=== PATIENT | male | born 1960 | race African-American/Black ===

== ENCOUNTER 2016-10-27 09:49 | Outpatient (CLI) | payer OTHER, MEDICARE | END 2016-10-27 09:50 | disposition home or self-care (01) | DX: M05.79 Rheumatoid arthritis with rheumatoid factor of multiple sites without organ or systems involvement (principal); Z51.81 Encounter for therapeutic drug level monitoring ==

== ENCOUNTER 2017-09-30 14:18 | Outpatient (CLI) | payer OTHER, MEDICARE | END 2017-09-30 14:19 | disposition critical access hospital (66) | LOC: EMS 14:18 | PROVIDERS: ATTEND Surgery | DX: R42 Dizziness and giddiness (principal); R09.89 Other specified symptoms and signs involving the circulatory and respiratory systems | CPT/HCPCS: A0425; A0429 ==

== ENCOUNTER 2017-09-30 14:51 | Emergency (ER) | payer OTHER, MEDICARE ==
[2017-09-30] MEDS ORDERED: diltiaZEM INJ 5 MG/ML VIAL IVP STA ×2 (15:08→16:31)
--- NOTE | 2017-09-30 15:12 | ED Physician Documentation ---
PD HPI CHEST PAIN - Stated complaint Stated Complaint: DIZZY LIGHTHEADED - Chief complaint Chief Complaint: Cardiac - History obtained from History obtained from: Patient - History of Present Illness Timing - onset: Other (57-year-old gentleman with history of rheumatoid arthritis on Humira for the last 2 weeks he has been feeling dizzy on and off with chest pressure and lightheadedness. He saw his doctor and reportedly had pancytopenia and was referred back to his field sales representative because it was felt it might be related to his Humira and he took his last dose a few days ago and is being switched to Orencia. Regardless today he had a worse episode of chest pressure and dizziness and shortness of breath. He has no history of heart issues or atrial fibrillation.) Review of Systems Ten Systems: 10 systems reviewed and negative Constitutional: reports: Fatigue. denies: Fever, Chills Cardiac: reports: Chest pain / pressure, Palpitations, Pedal edema (chronic bilat), Calf pain Respiratory: reports: Dyspnea. denies: Cough PD PAST MEDICAL HISTORY - Past Medical History Past Medical History: Yes Cardiovascular: Hypertension Respiratory: None Neuro: TIA Endocrine/Autoimmune: None GI: None : None HEENT: None Psych: None Musculoskeletal: Rheumatoid arthritis Derm: None - Past Surgical History Past Surgical History: Yes General: Hiatal hernia repair - Present Medications Home Medications: Ambulatory Orders Medication Instructions Recorded Confirmed Gabapentin 600 mg PO TID 03/27/14 03/27/14 Leflunomide [Arava] 20 mg PO DAILY 03/27/14 03/27/14 Adalimumab [Humira] 10 mg SQ 09/30/17 Diltiazem HCl [Cardizem] 120 mg PO BID #60 tablet 09/30/17 - Allergies Allergies/Adverse Reactions: Allergies Allergy/AdvReac Type Severity Reaction Status Date / Time lisinopril AdvReac Edema Verified 09/30/17 14:57 - Social History Does the pt smoke?: Yes Smoking Status: Current every day smoker Does the pt drink ETOH?: Yes Does the pt have substance abuse?: No - Immunizations Immunizations are current?: Yes PD ED PE NORMAL - Vitals Vital signs reviewed: Yes - General General: Alert and oriented X 3, No acute distress - HEENT HEENT: PERRL, EOMI - Neck Neck: Supple, no meningeal sign, No bony TTP - Cardiac Cardiac: Other (Rapid and irregular, no murmur) - Respiratory Respiratory: No respiratory distress, Clear bilaterally - Abdomen Abdomen: Soft, Non tender - Back Back: No CVA TTP, No spinal TTP - Derm Derm: Normal color, Warm and dry - Extremities Extremities: Other (Severe pes planus especially on the left, moderate pedal edema which she says is chronic but the left calf is tender.) - Neuro Neuro: Alert and oriented X 3, Normal speech - Psych Psych: Normal mood, Normal affect Results - Vitals Vitals: Vital Signs - 24 hr 09/30/17 09/30/17 09/30/17 14:52 15:19 15:25 Temperature 36.3 C L Heart Rate 130 H 163 H 142 H Respiratory 22 35 H 22 Rate Blood Pressure 120/100 H 139/112 H O2 Saturation 99 98 96 09/30/17 09/30/17 09/30/17 15:48 15:56 16:02 Temperature Heart Rate 125 H 124 H 134 H Respiratory 27 H 20 22 Rate Blood Pressure 135/101 H 129/104 H 122/98 H O2 Saturation 98 97 97 09/30/17 09/30/17 09/30/17 16:24 16:32 16:42 Temperature 37 C Heart Rate 137 H 109 H 87 Respiratory 17 22 18 Rate Blood Pressure 116/90 H 124/84 H 101/71 O2 Saturation 98 98 97 09/30/17 16:47 Temperature Heart Rate 83 Respiratory 22 Rate Blood Pressure 110/73 O2 Saturation 98 Oxygen O2 Source Room air - EKG (time done) 1455 Rate: Rate (enter#) (152) Rhythm: Atrial fibrillation [place]: Normal Ischemia: Normal ST segments Computer interpretation: Agree with computer - Labs Labs: Laboratory Tests 09/30/17 09/30/17 09/30/17 15:17 15:17 15:17 WBC 4.2 L RBC 5.22 Hgb 12.9 L Hct 41.0 L MCV 78.5 L MCH 24.6 L MCHC 31.3 L RDW 17.2 H Plt Count 208 MPV 8.9 Neut # 2.6 Lymph # 0.9 L [place]ett # 0.6 Eos # 0.0 Baso # 0.1 Absolute Nucleated RBC 0.01 Nucleated RBC % 0.3 D-Dimer Sodium 139 Potassium 3.8 Chloride 107 Carbon Dioxide 22 Anion Gap 10.0 BUN 8 Creatinine 0.9 Estimated GFR (MDRD) 105 Glucose 101 H Calcium 8.4 L Total Bilirubin 0.6 AST 123 H ALT 83 H Alkaline Phosphatase 80 Troponin I < 0.04 B-Natriuretic Peptide Total Protein 6.3 L Albumin 3.1 L Globulin 3.2 Albumin/Globulin Ratio 1.0 Lipase 16 L TSH 09/30/17 09/30/17 09/30/17 15:17 15:17 15:17 WBC RBC Hgb Hct MCV MCH MCHC RDW Plt Count MPV Neut # Lymph # [place]ett # Eos # Baso # Absolute Nucleated RBC Nucleated RBC % D-Dimer 273.5 H Sodium Potassium Chloride Carbon Dioxide Anion Gap BUN Creatinine Estimated GFR (MDRD) Glucose Calcium Total Bilirubin AST ALT Alkaline Phosphatase Troponin I B-Natriuretic Peptide 220 H Total Protein Albumin Globulin Albumin/Globulin Ratio Lipase TSH 0.61 - Rads (name of study) 1v chest Radiology: EMP read contemporaneously (NAD) PD MEDICAL DECISION MAKING - ED course ED course: 57-year-old gentleman with rheumatoid arthritis and history of stroke presents with new onset atrial fibrillation, potentially of a couple weeks duration so he is not a good candidate for ED cardioversion without echo. He did improve and was rate controlled here after a few doses of meds. Called Ross Garvin, position description manager for his PCP, they will see him tomorrow to discuss anticoagulation. Departure - Departure Disposition: 01 Home, Self Care Clinical Impression: Atrial fibrillation Qualifiers: Atrial fibrillation type: paroxysmal Qualified Code(s): I48.0 - Paroxysmal atrial fibrillation Condition: Good Record reviewed to determine appropriate education?: Yes Instructions: Atrial Fibrillation Dc Prescriptions: Diltiazem HCl [Cardizem] 120 mg PO BID #60 tablet Comments: We found you to have atrial fibrillation today, initially rate was fast but we were able to control that with medications. You are still in the atrial fibrillation, you are to go to your usual clinic tomorrow, [facility] has an opening at 9:30. They will discuss with you further workup that is needing, for example an echocardiogram and also will have the discussion with you regarding anticoagulation to prevent stroke. 9:30 AM tomorrow with Evelyne Bronson Forms: Activity restrictions
[2017-09-30 15:26] LABS: BASOPHILS # (AUTO) 0.1 10^3/uL (0.0-0.1); BASOPHILS % (AUTO) 1.4 %; EOSINOPHILS % (AUTO) 0.7 %; HGB - HEMOGLOBIN 12.9 g/dL (14.0-18.0); LYMPHOCYTES # (AUTO) 0.9 10^3/uL (1.5-3.5); LYMPHOCYTES % (AUTO) 21.8 %; MEAN CORPUSCULAR HEMOGLOBIN 24.6 pg (27.0-31.0); MEAN CORPUSCULAR HGB CONC 31.3 g/dL (32.0-36.0); MEAN CORPUSCULAR VOLUME 78.5 fL (80.0-94.0); MEAN PLATELET VOLUME 8.9 fL (7.4-11.4); MONOCYTES # (AUTO) 0.6 10^3/uL (0.0-1.0); MONOCYTES % (AUTO) 13.6 %; NEUTROPHILS # (AUTO) 2.6 10^3/uL (1.5-6.6); NEUTROPHILS % (AUTO) 62.5 %; PLT - PLATELET COUNT 208 10^3/uL (130-450); RED BLOOD COUNT 5.22 10^6/uL (4.70-6.10); RED CELL DISTRIBUTION WIDTH 17.2 % (12.0-15.0); WHITE BLOOD COUNT 4.2 x10^3/uL (4.8-10.8)
--- NOTE | 2017-09-30 15:36 | XRAY Report ---
EXAM: CHEST RADIOGRAPHY EXAM DATE: 09/30/2017 03:25 PM. CLINICAL HISTORY: Dyspnea. COMPARISON: 08/01/2013. TECHNIQUE: 1 view. FINDINGS: Lungs/Pleura: No localized infiltrate, consolidation, effusion, or pneumothorax. Mediastinum: Within exam limitations, the cardiomediastinal contour is normal. Upper lobe vessels not distended. Other: Degenerative changes. IMPRESSION: No acute disease. [facility] Referring Provider Line: [phone] SITE ID: [id number]
[2017-09-30] MEDS ORDERED: METOPROLOL 5 MG/5 ML VIAL IVP STA ×2 (15:38→16:08)
[2017-09-30 15:41] LABS: ALBUMIN 3.1 g/dL (3.2-5.5); BILIRUBIN,TOTAL 0.6 mg/dL (0.2-1.0); CALCIUM 8.4 mg/dL (8.5-10.3); CREATININE 0.9 mg/dL (0.6-1.2); TOTAL PROTEIN 6.3 g/dL (6.7-8.2)
[2017-09-30] MEDS ORDERED: diltiaZEM 30 MG TABLET PO STA (16:55)
[2017-09-30 17:46] VITALS: BP 127/90
== END 2017-09-30 17:47 | disposition home or self-care (01) ==
LOC: EDUNIT# → ED 14:51
DX: I48.0 Paroxysmal atrial fibrillation (principal); M06.9 Rheumatoid arthritis, unspecified; I10 Essential (primary) hypertension; Z86.73 Personal history of transient ischemic attack (TIA), and cerebral infarction without residual deficits; F17.200 Nicotine dependence, unspecified, uncomplicated
CPT/HCPCS: 36415; 71045; 80053; 83690; 83880; 84443; 84484; 85025; 85379; 93005; 96374; 96376; 99284; A9270

== ENCOUNTER 2017-10-16 16:00 | Outpatient (CLI) | payer OTHER, MEDICARE | END 2017-10-16 16:01 | disposition EMS.NT | LOC: EMS 16:00 | PROVIDERS: ATTEND Surgery | DX: R00.0 Tachycardia, unspecified (principal); R06.02 Shortness of breath ==

== ENCOUNTER 2017-10-16 17:24 | Emergency (ER) | payer OTHER, MEDICARE ==
[2017-10-16 18:09] LABS: BASOPHILS # (AUTO) 0.1 10^3/uL (0.0-0.1); BASOPHILS % (AUTO) 1.9 %; EOSINOPHILS % (AUTO) 0.6 %; HGB - HEMOGLOBIN 13.3 g/dL (14.0-18.0); LYMPHOCYTES # (AUTO) 2.2 10^3/uL (1.5-3.5); LYMPHOCYTES % (AUTO) 27.5 %; MEAN CORPUSCULAR HEMOGLOBIN 24.4 pg (27.0-31.0); MEAN CORPUSCULAR HGB CONC 31.5 g/dL (32.0-36.0); MEAN CORPUSCULAR VOLUME 77.5 fL (80.0-94.0); MEAN PLATELET VOLUME 9.2 fL (7.4-11.4); MONOCYTES # (AUTO) 0.7 10^3/uL (0.0-1.0); MONOCYTES % (AUTO) 9.2 %; NEUTROPHILS # (AUTO) 4.8 10^3/uL (1.5-6.6); NEUTROPHILS % (AUTO) 60.8 %; PLT - PLATELET COUNT 268 10^3/uL (130-450); RED BLOOD COUNT 5.47 10^6/uL (4.70-6.10); RED CELL DISTRIBUTION WIDTH 17.2 % (12.0-15.0); WHITE BLOOD COUNT 7.9 x10^3/uL (4.8-10.8)
[2017-10-16 18:38] LABS: ALBUMIN 3.4 g/dL (3.2-5.5); BILIRUBIN,TOTAL 0.4 mg/dL (0.2-1.0); TOTAL PROTEIN 6.9 g/dL (6.7-8.2)
[2017-10-16 18:39] LABS: CREATININE 0.7 mg/dL (0.6-1.2)
--- NOTE | 2017-10-16 18:50 | ED Physician Documentation ---
History of Present Illness - Stated complaint Stated Complaint: AFIB - Chief complaint Chief Complaint: Cardiac - History obtained from History obtained from: Patient - History of Present Illness Pain level max: 0 Pain level now: 0 Improved by: nothing Worsened by: nothing - Additonal information Additional information: States dx with afib 2 weeks ago, started on cardizem 120mg BID. At 230pm today, felt chest fluttering. No chest pain. Mild shortness of breath. States was in NSR before leaving the ED last week. Was in NSR when he followed up with PCP as well. Review of Systems Ten Systems: 10 systems reviewed and negative Constitutional: denies: Fever, Chills Ears: denies: Ear pain Nose: denies: Rhinorrhea / runny nose, Congestion Throat: denies: Sore throat Respiratory: denies: Cough, Wheezing GI: denies: Vomiting, Diarrhea Skin: denies: Rash Musculoskeletal: denies: Neck pain, Back pain Neurologic: denies: Headache PD PAST MEDICAL HISTORY - Past Medical History Cardiovascular: Hypertension, Atrial fibrillation Respiratory: None Neuro: TIA Endocrine/Autoimmune: None GI: None : None HEENT: None Psych: None Musculoskeletal: Rheumatoid arthritis Derm: None - Past Surgical History Past Surgical History: Yes General: Hiatal hernia repair - Present Medications Home Medications: Ambulatory Orders Medication Instructions Recorded Confirmed Leflunomide [Arava] 20 mg PO DAILY 03/27/14 10/16/17 Diltiazem HCl [Cardizem] 120 mg PO BID #60 tablet 09/30/17 10/16/17 - Allergies Allergies/Adverse Reactions: Allergies Allergy/AdvReac Type Severity Reaction Status Date / Time lisinopril AdvReac Edema Verified 10/16/17 17:38 - Social History Does the pt smoke?: Yes Smoking Status: Current every day smoker Does the pt drink ETOH?: Yes Does the pt have substance abuse?: No - Immunizations Immunizations are current?: Yes PD ED PE NORMAL - Vitals Vital signs reviewed: Yes - General General: Alert and oriented X 3, No acute distress, Well developed/nourished - HEENT HEENT: PERRL, Moist mucous membranes - Neck Neck: Supple, no meningeal sign - Cardiac Cardiac: Strong equal pulses, Other (irregular) - Respiratory Respiratory: No respiratory distress, Clear bilaterally - Abdomen Abdomen: Soft, Non tender, Non distended - Derm Derm: Warm and dry, No rash - Extremities Extremities: No edema, No calf tenderness / cord - Neuro Neuro: Alert and oriented X 3 - Psych Psych: Normal mood, Normal affect Results - Vitals Vitals: Vital Signs - 24 hr 10/16/17 10/16/17 10/16/17 17:35 18:30 19:33 Temperature 36.1 C L Heart Rate 109 H 120 H 120 H Respiratory 18 16 15 Rate Blood Pressure 129/87 H 150/100 H 146/101 H O2 Saturation 100 100 100 10/16/17 10/16/17 19:46 19:55 Temperature Heart Rate 122 H 73 Respiratory 13 13 Rate Blood Pressure 122/96 H 122/96 H O2 Saturation 100 99 Oxygen O2 Source Room air - EKG (time done) 1743 Rate: Rate (enter#) (140) Rhythm: Atrial fibrillation (RVR) [place]: Normal QRS: Normal Ischemia: Normal ST segments 1952 Rate: Rate (enter#) (70) Rhythm: NSR [place]: Normal Intervals: Normal SD QRS: Normal Ischemia: Normal ST segments - Labs Labs: Laboratory Tests 10/16/17 10/16/17 10/16/17 17:59 17:59 17:59 WBC 7.9 RBC 5.47 Hgb 13.3 L Hct 42.4 MCV 77.5 L MCH 24.4 L MCHC 31.5 L RDW 17.2 H Plt Count 268 MPV 9.2 Neut # 4.8 Lymph # 2.2 [place] # 0.7 Eos # 0.0 Baso # 0.1 Absolute Nucleated RBC 0.01 Nucleated RBC % 0.1 Sodium 137 Potassium 3.8 Chloride 101 Carbon Dioxide 23 Anion Gap 13.0 BUN 9 Creatinine 0.7 Estimated GFR (MDRD) 141 Glucose 90 Calcium 9.0 Total Bilirubin 0.4 AST 25 ALT 18 Alkaline Phosphatase 75 Troponin I < 0.04 Total Protein 6.9 Albumin 3.4 Globulin 3.5 Albumin/Globulin Ratio 1.0 Lipase 23 PD MEDICAL DECISION MAKING - ED course Complexity details: reviewed old records, reviewed results, re-evaluated patient , considered differential, d/w patient, d/w family ED course: Patient is a 57-year-old male who presents to the emergency department with atrial fibrillation with rapid ventricular response. This is paroxysmal in nature. As he is only been in the atrial fibrillation for a few hours, it was decided to perform chemical cardioversion with procainamide. He converted to normal sinus rhythm and will have him follow-up with his doctor. Patient counseled regarding signs and symptoms for which I believe and urgent re- evaluation would be necessary. Patient with good understanding of and agreement to plan and is comfortable going home at this time This document was made in part using voice recognition software. While efforts are made to proofread this document, sound alike and grammatical errors may occur. Departure - Departure Disposition: 01 Home, Self Care Clinical Impression: Atrial fibrillation Qualifiers: Atrial fibrillation type: paroxysmal Qualified Code(s): I48.0 - Paroxysmal atrial fibrillation Condition: Good Instructions: ED Afib Follow-Up: [facility] Bronson ARNP [Primary Care Provider] - Within 1 week Comments: Continue your medications at home. Return if you worsen. Discharge Date/Time: 10/16/17 20:00
[2017-10-16] MEDS ORDERED: diltiaZEM INJ 5 MG/ML VIAL IVP STA (18:55)
--- NOTE | 2017-10-16 19:02 | XRAY Report ---
EXAM: CHEST RADIOGRAPHY EXAM DATE: 10/16/2017 06:33 PM. CLINICAL HISTORY: Shortness of air COMPARISON: 09/30/2017. TECHNIQUE: 2 views. FINDINGS: Lungs/Pleura: No focal opacities evident. No pleural effusion. No pneumothorax. Normal volumes. Mediastinum: Heart and mediastinal contours are unremarkable. Other: None. IMPRESSION: Negative chest. [facility] Referring Provider Line: [phone] SITE ID: [id number]
--- NOTE | 2017-10-16 19:02 | XRAY Preliminary Report ---
Exam: XR CHEST 2 VIEW X-RAY IMPRESSION: Negative chest. [facility] SITE ID: [id number]
[2017-10-16] MEDS ORDERED: PROCAINAMIDE 1,000 MG in SODIUM CHLORIDE 0.9% 240 ML IV SCH ×2 (19:14→20:00)
[2017-10-16] MEDS ORDERED: PROCAINAMIDE 1,000 MG/10 ML SYRINGE ONE (19:31)
[2017-10-16 19:47] VITALS: BP 122/96
== END 2017-10-16 20:00 | disposition home or self-care (01) ==
LOC: ED 17:24
DX: I48.0 Paroxysmal atrial fibrillation (principal); I10 Essential (primary) hypertension; Z86.73 Personal history of transient ischemic attack (TIA), and cerebral infarction without residual deficits; M06.9 Rheumatoid arthritis, unspecified; F17.200 Nicotine dependence, unspecified, uncomplicated
CPT/HCPCS: 36415; 71046; 80053; 83690; 84484; 85025; 93005; 96365; 99283; 99285; J2690

== ENCOUNTER 2017-10-18 08:30 | Outpatient (CLI) | payer OTHER, MEDICARE | END 2017-10-18 08:31 | disposition home or self-care (01) | LOC: DI 08:30 | PROVIDERS: ATTEND Registered Nurse | DX: I48.0 Paroxysmal atrial fibrillation (principal); I51.7 Cardiomegaly; I77.810 Thoracic aortic ectasia | CPT/HCPCS: 93306 ==

== ENCOUNTER 2018-05-29 19:39 | Inpatient (IN) | payer OTHER, MEDICARE ==
[2018-05-29 20:17] LABS: BASOPHILS % (AUTO) 0.2 %; EOSINOPHILS % (AUTO) 0.3 %; HGB - HEMOGLOBIN 10.9 g/dL (14.0-18.0); LYMPHOCYTES # (AUTO) 1.4 10^3/uL (1.5-3.5); LYMPHOCYTES % (AUTO) 15.8 %; MEAN CORPUSCULAR HEMOGLOBIN 25.4 pg (27.0-31.0); MEAN CORPUSCULAR HGB CONC 32.9 g/dL (32.0-36.0); MEAN CORPUSCULAR VOLUME 77.3 fL (80.0-94.0); MEAN PLATELET VOLUME 8.4 fL (7.4-11.4); MONOCYTES # (AUTO) 0.6 10^3/uL (0.0-1.0); MONOCYTES % (AUTO) 6.5 %; NEUTROPHILS # (AUTO) 6.8 10^3/uL (1.5-6.6); NEUTROPHILS % (AUTO) 77.2 %; PLT - PLATELET COUNT 249 10^3/uL (130-450); RED BLOOD COUNT 4.28 10^6/uL (4.70-6.10); RED CELL DISTRIBUTION WIDTH 15.8 % (12.0-15.0); WHITE BLOOD COUNT 8.8 x10^3/uL (4.8-10.8)
[2018-05-29 20:42] LABS: BILIRUBIN,TOTAL 1.4 mg/dL (0.2-1.0); CALCIUM 8.1 mg/dL (8.5-10.3); CREATININE 1.5 mg/dL (0.6-1.2)
--- NOTE | 2018-05-29 20:58 | ED Physician Documentation ---
PD HPI ABD PAIN - Stated complaint Stated Complaint: ABD PX/VOMIT - Chief complaint Chief Complaint: Abd Pain - History obtained from History obtained from: Patient - History of Present Illness Timing - onset: Enter time (12:30), Today Timing - duration: Hours Timing - details: Abrupt onset, Waxing and waning Pain level max: 10 Pain level now: 10 Quality: Pain Location: Epigastric Radiation: Other (does not radiate) Improved by: Laying still Worsened by: Moving, Palpation Associated symptoms: Nausea. No: Fever, Vomiting, Diarrhea, Constipation Similar symptoms before: Has not had sx before Recently seen: Clinic (evaluated few weeks ago for N/V/D by PMD; patient says he was diagnosed with "intenstinal infection", and was told to stop ibuprofen and levflunomide. He was also to have US (scheduled for tomorrow) and GI consult (in [place]). Patient says the pain he has tonight is not something he has experienced before. He says he did not drink any alcohol today, but has been drinking daily) Review of Systems Constitutional: reports: Reviewed and negative Eyes: reports: Reviewed and negative Ears: reports: Reviewed and negative Nose: reports: Reviewed and negative Throat: reports: Reviewed and negative Cardiac: reports: Reviewed and negative Respiratory: reports: Reviewed and negative GI: reports: Abdominal Pain, Nausea. denies: Abdominal Swelling, Vomiting, Constipation, Diarrhea : denies: Dysuria, Hesitancy Skin: reports: Reviewed and negative Musculoskeletal: reports: Reviewed and negative Neurologic: reports: Reviewed and negative PD PAST MEDICAL HISTORY - Past Medical History Cardiovascular: Hypertension, Atrial fibrillation Respiratory: None Endocrine/Autoimmune: None GI: None : None HEENT: None Psych: None Musculoskeletal: Rheumatoid arthritis Derm: None - Past Surgical History Past Surgical History: Yes General: Hiatal hernia repair - Present Medications Home Medications: Ambulatory Orders Medication Instructions Recorded Confirmed Leflunomide [Arava] 20 mg PO DAILY 03/27/14 10/16/17 Diltiazem HCl [Cardizem] 120 mg PO BID #60 tablet 09/30/17 10/16/17 - Allergies Allergies/Adverse Reactions: Allergies Allergy/AdvReac Type Severity Reaction Status Date / Time amoxicillin Allergy Respiratory Verified 05/29/18 19:52 - Social History Does the pt smoke?: Yes Smoking Status: Current every day smoker Does the pt drink ETOH?: Yes Does the pt have substance abuse?: No - Immunizations Immunizations are current?: Yes PD ED PE NORMAL - Vitals Vital signs reviewed: Yes - General General: Alert and oriented X 3, Well developed/nourished, Other (obvious painful distress) - HEENT HEENT: Moist mucous membranes - Neck Neck: Supple, no meningeal sign - Cardiac Cardiac: RRR, No murmur - Respiratory Respiratory: No respiratory distress, Clear bilaterally - Abdomen Abdomen: Soft, Non distended, Other (tenderness across upper abdomen, most p ronounced in epigastrium) - Back Back: No CVA TTP - Derm Derm: Normal color, Warm and dry - Extremities Extremities: No edema Results - Vitals Vitals: Vital Signs - 24 hr 05/29/18 05/29/18 05/29/18 19:46 21:15 21:43 Temperature 36.6 C Heart Rate 59 L 70 71 Respiratory 21 18 15 Rate Blood Pressure 148/85 H 175/88 H 184/90 H O2 Saturation 100 100 100 05/29/18 23:03 Temperature Heart Rate 78 Respiratory 20 Rate Blood Pressure 170/89 H O2 Saturation 97 Oxygen O2 Source Room air - Labs Labs: Laboratory Tests 05/29/18 05/29/18 05/29/18 20:05 20:05 20:05 WBC 8.8 RBC 4.28 L Hgb 10.9 L Hct 33.1 L MCV 77.3 L MCH 25.4 L MCHC 32.9 RDW 15.8 H Plt Count 249 MPV 8.4 Neut # (Auto) 6.8 H Lymph # (Auto) 1.4 L [place] # (Auto) 0.6 Eos # (Auto) 0.0 Baso # (Auto) 0.0 Absolute Nucleated RBC 0.01 Nucleated RBC % 0.1 Sodium 138 Potassium 2.9 L Chloride 104 Carbon Dioxide 23 Anion Gap 11.0 BUN 16 Creatinine 1.5 H Estimated GFR (MDRD) 58 L Glucose 119 H Calcium 8.1 L Total Bilirubin 1.4 H AST 52 H ALT 40 Alkaline Phosphatase 106 Total Protein 6.0 L Albumin 3.0 L Globulin 3.0 Albumin/Globulin Ratio 1.0 Amylase 651 H* Lipase 1092 H - Rads (name of study) CT A/P Radiology: Prelim report reviewed, See rad report PD MEDICAL DECISION MAKING - ED course Complexity details: reviewed results, re-evaluated patient, considered differential, d/w patient Departure - Departure Disposition: 66 [facility] DC/Xfer Clinical Impression: Pancreatitis Condition: Stable
[2018-05-29] MEDS ORDERED: HYDROmorphone 1 MG/ML CARPUJECT IVP STA (21:23)
[2018-05-29] MEDS ORDERED: SODIUM CHLORIDE 0.9% 1,000 ML IV STA (21:23)
[2018-05-29] MEDS ORDERED: IOPAMIDOL-300 100 ML VIAL ONE (21:40)
[2018-05-29] MEDS ORDERED: IOPAMIDOL-300 100 ML VIAL IVP ONE (21:56)
--- NOTE | 2018-05-29 22:27 | CT Report ---
Reason: pancreatitis Procedure Date: 05/29/2018 Accession Number: [id number] / [id number] Procedure: CT - Abdomen/Pelvis W/ CPT Code: FULL RESULT: EXAM: CT ABDOMEN AND PELVIS EXAM DATE: 05/29/2018 10:04 PM. CLINICAL HISTORY: Pancreatitis. COMPARISONS: None. TECHNIQUE: Routine helical CT imaging was performed through the abdomen and pelvis. IV contrast: ISOVUE 300 100mL. Enteric contrast: No. Reconstructions: Coronal and sagittal. In accordance with CT protocol optimization, one or more of the following dose reduction techniques were utilized for this exam: automated exposure control, adjustment of mA and/or KV based on patient size, or use of iterative reconstructive technique. FINDINGS: Lung Bases: Unremarkable. Liver: Small hypodensity in the right lobe, likely representing a cyst. No intrahepatic biliary dilatation. Gallbladder/Bile Ducts: Unremarkable. Spleen: Normal. Pancreas: Inflammation around the body and tail of the pancreas, with inflammation and free fluid extending into the left paracolic gutter. No evidence of pancreatic necrosis or organized pseudocyst formation. Adrenal Glands: Normal. Kidneys: Normal. No masses or hydronephrosis. Peritoneal Cavity/Bowel: Fluid and inflammation in the left paracolic gutter. No bowel dilatation or free gas. The appendix is well visualized and normal. Pelvic Organs: Moderate amount of free fluid in the pelvis. No adenopathy. Vasculature: No aneurysms or other significant abnormality. Bones: Degenerative changes. Other: None. IMPRESSION: Peripancreatic inflammation, compatible with pancreatitis, without evidence of pancreatic necrosis or pseudocyst formation. [facility]
[2018-05-30] MEDS ORDERED: ONDANSETRON 4 MG/2 ML VIAL IVP PRN (00:23)
[2018-05-30] MEDS ORDERED: HYDROmorphone 0.5 MG/0.5 ML SYRINGE IVP PRN (00:23)
[2018-05-30] MEDS ORDERED: TEMAZEPAM 15 MG CAPSULE PO PRN (00:23)
[2018-05-30] MEDS ORDERED: LORazepam 2 MG/ML VIAL IVP PRN ×2 (00:29→20:35)
[2018-05-30] MEDS ORDERED: HYDROmorphone 1 MG/ML CARPUJECT IVP STA (00:53)
[2018-05-30] MEDS: D5NS W/20 MEQ KCL 1,000 ML IV SCH ×3 (02:01→16:18)
[2018-05-30] MEDS: POTASSIUM CHLOR 10 MEQ/100 ML 10 MEQ/100 ML BAG IV SCH ×2 (02:01→02:54)
[2018-05-30] MEDS: SODIUM CHLORIDE FLUSH 0.9% 10 ML SYRINGE IVP SCH ×3 (02:02→16:19)
[2018-05-30 02:45] LABS: BILIRUBIN,URINE NEGATIVE (NEGATIVE); GLUCOSE, URINE (UA) NEGATIVE (NEGATIVE); KETONES,URINE (UA) 15 mg/dL (NEGATIVE); LEUKOCYTE ESTERASE, URINE NEGATIVE (NEGATIVE); NITRITE,URINE NEGATIVE (NEGATIVE); OCCULT BLOOD,URINE TRACE-LYSE (NEGATIVE); PROTEIN,URINE 30 mg/dL (NEGATIVE); UROBILINOGEN,URINE 0.2 (NORMAL) E.U./dL (NORMAL)
[2018-05-30] MEDS: HYDROmorphone 2 MG/ML VIAL IVP PRN ×4 (02:45→18:32)
[2018-05-30 02:46] LABS: CLARITY,URINE CLEAR (CLEAR)
[2018-05-30 02:49] LABS: BACTERIA,URINE None Seen /HPF (None Seen); CASTS, URINE 3-5 Hyaline Casts /LPF; SQUAMOUS EPITHELIAL CELL,UR NONE SEEN (<= Few)
--- NOTE | 2018-05-30 03:22 | HISTORY & PHYSICAL EXAMINATION ---
DATE OF SERVICE: 05/30/2018 Physician: Jovanna Apodaca MD HISTORY OF PRESENT ILLNESS: This is a 58-year-old, black male with a history of rheumatoid arthritis on an immunomodulating agent, and history of paroxysmal atrial fibrillation and hypertension on Cardizem. He went to his doctor approximately a week ago because of 1 week of diarrhea and was told he had "an intestinal infection," was told to stop using p.r.n. ibuprofen and his rheumatoid arthritis agent leflunomide. He was to have a GI consultation and an ultrasound of his abdomen, which was scheduled for later this week. Patient awoke this morning with discomfort in the epigastric area and nausea, but no vomiting. He stated that several days previously, he went out for an event and had more alcohol than he usually has. He does drink daily, however. He presented to the emergency room because of severe abdominal pain, and underwent imaging and labs, and was found to have acute pancreatitis, and is being admitted for this. PAST MEDICAL HISTORY: Rheumatoid arthritis on leflunomide, hypertension and paroxysmal atrial fibrillation on Cardizem. REVIEW OF SYSTEMS: A comprehensive review of systems was performed and the pertinent positives are in the HPI, the rest are negative. FAMILY HISTORY: No inherited diseases. SOCIAL HISTORY: He drinks alcohol daily, he is a smoker of cigarettes and uses no illicit drugs. ALLERGIES: AMOXICILLIN. MEDICATIONS 1. Leflunomide. 2. Cardizem 120 mg b.i.d. PHYSICAL EXAMINATION GENERAL: He appears to be in mild to moderate distress, but he was given Dilaudid in the emergency room when the pain was worse previously. VITAL SIGNS: Blood pressure 174/102, heart rate 64, afebrile, room air saturation 100%. HEENT: Reveals piercing. Oral mucosa is moist. NECK: Without JVD or carotid bruits. CHEST: Clear. HEART: Sounds normal. ABDOMEN: Soft, hyperactive, tender to light touch in the epigastrium. No guarding or rebound. No organomegaly. EXTREMITIES: No edema. NEUROLOGIC: Grossly intact. LABORATORIES: Normal electrolytes except potassium 2.9, BUN is 16, creatinine 1.5, bilirubin 1.4, AST 52, ALT 40, alkaline phosphatase normal. Lipase 1092, amylase 651. White blood count 8.8, hemoglobin 10.9 with a low MCV of 77, platelet count 249. No INR was done. IMAGING: Abdomen and pelvis CT shows inflammation around the body and tail of the pancreas and free fluid extending into the left pericolic gutter, but no evidence of pancreatic necrosis or pseudocyst. No EKG was done. IMPRESSION/DIAGNOSES 1. Acute pancreatitis. 2. Alcohol use, which may be the precipitating factor of the pancreatitis. 3. Diarrhea, which preceded the pancreatitis. 4. Microcytic anemia. 5. Hypokalemia. 6. Hypertension. PLAN: Admit to inpatient status. Start IV fluids, D5 normal saline will be used and potassium supplement. Begin bowel rest, n.p.o. status except ice chips. Evaluate his diarrhea if it occurs with cultures for bacteria, as well as C. difficile evaluation. Check an iron panel and guaiac stool because of the low MCV, anemia. Replace the potassium. Continue his medications for blood pressure. CODE STATUS: FULL CODE. DEEP VENOUS THROMBOSIS PROPHYLAXIS: SCDs. ATTESTATION: The patient is expected to be discharged or transferred to another facility within 96 hours: Yes. TD: 05/30/2018 02:44 TRUMAN
[2018-05-30] MEDS: FAMOTIDINE 20 MG/50 ML 50 ML IV SCH ×3 (04:17→21:15)
[2018-05-30 05:45] LABS: ALBUMIN 2.7 g/dL (3.2-5.5); CALCIUM 7.6 mg/dL (8.5-10.3); CREATININE 1.4 mg/dL (0.6-1.2); TOTAL PROTEIN 5.5 g/dL (6.7-8.2)
[2018-05-30 06:02] LABS: % IRON SATURATION 60 % (20-50); IRON 116 ug/dL (45-182); TOTAL IRON BINDING CAPACITY 193 ug/dL (250-450); TRANSFERRIN 138 mg/dL (180-329)
[2018-05-30 06:03] LABS: AMYLASE 878 U/L (28-100)
[2018-05-30 06:10] LABS: LIPASE 1250 U/L (22-51)
[2018-05-30] MEDS: SODIUM CHLORIDE FLUSH 0.9% 10 ML SYRINGE IVP PRN ×4 (07:40→18:33)
[2018-05-30] MEDS ORDERED: POTASSIUM CHLORIDE INJ 40 MEQ in SODIUM CHLORIDE 0.9% 480 ML IV ONE (09:00)
[2018-05-30] MEDS: ENALAPRILAT 1.25 MG/ML VIAL IVP SCH ×3 (09:06→17:47)
[2018-05-30] MEDS: POLYETHYLENE GLYCOL 3350 17 GM PACKET PO SCH (09:23)
[2018-05-30] MEDS ORDERED: MULTIVITAMIN 10 ML, THIAMINE INJ 100 MG, FOLIC ACID INJ 1 MG in SODIUM CHLORIDE 0.9% 1,... IV SCH (11:00)
[2018-05-30] MEDS: chlordiazePOXIDE 25 MG CAPSULE PO SCH ×2 (12:21→17:46)
--- NOTE | 2018-05-30 12:58 | PROVIDER PROGRESS NOTE ---
Hospitalist Cross-cover Note - Cross-Cover Note Cross-Cover Note: HTN: I have added enalapril IV, hydralazine, and scheduled Lorazepam/Librium for suspected alcohol W/D. Daily banana bag was prescribed. Pain: Continue Dilaudid, avoid morphine as it is slightly more nephrotoxic.
[2018-05-30] MEDS ORDERED: ACETAMINOPHEN 1,000 MG/100 ML 100 ML IV SCH (13:00)
[2018-05-30] MEDS: hydrALAZINE INJ 20 MG/ML VIAL IVP SCH ×2 (14:03→18:32)
[2018-05-30] MEDS: LORazepam 2 MG/ML VIAL IVP SCH ×4 (14:03→19:10)
[2018-05-30] MEDS ORDERED: DOCUSATE SODIUM 250 MG CAPSULE PO SCH (17:00)
[2018-05-30] MEDS ORDERED: SENNA 8.6 MG TABLET PO SCH (17:00)
[2018-05-30] MEDS: diltiaZEM INJ 5 MG/ML VIAL IVP SCH (21:39)
[2018-05-30] MEDS ORDERED: POTASSIUM CHLORIDE 20 MEQ TABLET PO ONE (23:13)
[2018-05-31] MEDS: ENALAPRILAT 1.25 MG/ML VIAL IVP SCH ×2 (00:03→06:55)
[2018-05-31] MEDS: chlordiazePOXIDE 25 MG CAPSULE PO SCH ×4 (00:04→17:59)
[2018-05-31] MEDS: D5NS W/20 MEQ KCL 1,000 ML IV SCH (00:44)
[2018-05-31] MEDS: hydrALAZINE INJ 20 MG/ML VIAL IVP SCH ×2 (00:48→07:48)
[2018-05-31] MEDS: SODIUM CHLORIDE FLUSH 0.9% 10 ML SYRINGE IVP PRN ×5 (00:52→10:59)
[2018-05-31] MEDS: SODIUM CHLORIDE FLUSH 0.9% 10 ML SYRINGE IVP SCH ×3 (00:52→18:00)
[2018-05-31] MEDS: HYDROmorphone 2 MG/ML VIAL IVP PRN ×2 (04:39→10:59)
[2018-05-31 06:13] LABS: BASOPHILS # (AUTO) 0.1 10^3/uL (0.0-0.1); BASOPHILS % (AUTO) 0.6 %; EOSINOPHILS # (AUTO) 0.1 10^3/uL (0.0-0.7); EOSINOPHILS % (AUTO) 0.5 %; HGB - HEMOGLOBIN 9.2 g/dL (14.0-18.0); LYMPHOCYTES # (AUTO) 1.8 10^3/uL (1.5-3.5); MEAN CORPUSCULAR HEMOGLOBIN 25.3 pg (27.0-31.0); MEAN CORPUSCULAR VOLUME 76.6 fL (80.0-94.0); MONOCYTES # (AUTO) 1.5 10^3/uL (0.0-1.0); MONOCYTES % (AUTO) 9.4 %; NEUTROPHILS # (AUTO) 12.7 10^3/uL (1.5-6.6); NEUTROPHILS % (AUTO) 78.5 %; PLT - PLATELET COUNT 79 10^3/uL (130-450); RED BLOOD COUNT 3.63 10^6/uL (4.70-6.10); RED CELL DISTRIBUTION WIDTH 16.4 % (12.0-15.0); WHITE BLOOD COUNT 16.1 x10^3/uL (4.8-10.8)
[2018-05-31 06:27] LABS: ALBUMIN 2.1 g/dL (3.2-5.5); ALBUMIN/GLOBULIN RATIO 0.8 (1.0-2.2); BILIRUBIN,TOTAL 2.9 mg/dL (0.2-1.0); CALCIUM 7.3 mg/dL (8.5-10.3); MAGNESIUM 1.4 mg/dL (1.7-2.8); PHOSPHORUS 1.5 mg/dL (2.5-4.6); TOTAL PROTEIN 4.8 g/dL (6.7-8.2)
[2018-05-31] MEDS: diltiaZEM INJ 5 MG/ML VIAL IVP SCH (06:52)
[2018-05-31] MEDS: FAMOTIDINE 20 MG/50 ML 50 ML IV SCH ×2 (08:07→20:28)
[2018-05-31] MEDS: POLYETHYLENE GLYCOL 3350 17 GM PACKET PO SCH ×2 (08:08→09:26)
[2018-05-31] MEDS ORDERED: POTASSIUM CHLORIDE 20 MEQ TABLET PO SCH (08:14)
[2018-05-31] MEDS ORDERED: MAGNESIUM SULFATE 2 GRAM 2 GM/50 ML BAG IV ONE (09:00)
--- NOTE | 2018-05-31 09:00 | XRAY Report ---
Reason: fever Procedure Date: 05/31/2018 Accession Number: [id number] / [id number] Procedure: XR - Chest 1 View X-Ray CPT Code: 37466 FULL RESULT: EXAM: CHEST RADIOGRAPHY EXAM DATE: 05/31/2018 08:40 AM. CLINICAL HISTORY: Fever. COMPARISON: CHEST 2 VIEW 10/16/2017 6:24 PM. TECHNIQUE: 1 view. FINDINGS: Lungs/Pleura: There is likely a small left pleural effusion as well as a left basilar infiltrate. Interval decrease in lung volumes compared to 10/16/2017. No pneumothorax. Mediastinum: Within exam limitations, the cardiomediastinal contour is normal. Other: None. IMPRESSION: Interval development of small left pleural effusion and left basilar infiltrate. [facility]
[2018-05-31] MEDS: PIPERACILLIN/TAZOBACTAM 3.375 GM in SODIUM CHLORIDE 0.9% MINIBAG 100 ML IV SCH ×3 (09:26→21:18)
[2018-05-31] MEDS: NS W/20 MEQ KCL 1,000 ML IV SCH (09:28)
[2018-05-31] MEDS ORDERED: DILTIAZEM HCL 300 MG PO SCH (11:15)
[2018-05-31] MEDS ORDERED: cloNIDine 0.1 MG TABLET PO PRN (11:16)
--- NOTE | 2018-05-31 11:36 | Ultrasound Report ---
Reason: elevated bili, liver enzyme Procedure Date: 05/31/2018 Accession Number: [id number] / [id number] Procedure: US - Abdomen Limited CPT Code: FULL RESULT: EXAM: ABDOMEN ULTRASOUND LIMITED, RUQ EXAM DATE: 05/31/2018 11:02 AM. CLINICAL HISTORY: Elevated bilirubin, liver enzyme. COMPARISON: ABDOMEN/PELVIS WITH CONTRAST 05/29/2018 9:59 PM. TECHNIQUE: Real-time scanning was performed with static images obtained. FINDINGS: Liver: Background is coarse and heterogeneous. There is perihepatic ascites. Within the inferior left lobe of the liver is a 1.2 x 1.7 x 1.2 cm relatively hypoechoic geographic area, which is retrospectively identified as stippled hyperenhancing focus on the recent CT, nonspecific but possibly a flash filling hemangioma. The right lobe of the liver measures at least 16.2 cm. Main portal vein flow: Hepatopetal. Gallbladder: Negative sonographic Emerson's sign and no calculi. Gallbladder wall of 4 mm is felt to be related to the perihepatic ascites. Biliary System: CBD measures 5 mm. No intrahepatic or extrahepatic ductal dilatation. Other: None. IMPRESSION: Coarse heterogeneous liver parenchyma with interval development of perihepatic ascites. Retrospectively identified nonspecific hypoechoic geographic appearing left lobe of the liver lesion. Based on the previous CT appearance, possibly hemangioma. RADIA
[2018-05-31] MEDS ORDERED: VANCOMYCIN PER PHARMACY 1 GM in SODIUM CHLORIDE 0.9% 250 ML IV SCH (12:00)
[2018-05-31] MEDS ORDERED: VANCOMYCIN INJ 2 GM in SODIUM CHLORIDE 0.9% 500 ML IV SCH (12:00)
[2018-05-31] MEDS: LISINOPRIL 5 MG TABLET PO SCH (12:30)
[2018-05-31] MEDS: diltiaZEM CD 180 MG CAPSULE PO SCH (12:31)
[2018-05-31] MEDS: diltiaZEM CD 120 MG CAPSULE PO SCH (12:31)
[2018-05-31] MEDS: THIAMINE 100 MG TABLET PO SCH (12:32)
[2018-05-31] MEDS: PRENATAL VITAMIN TABLET PO SCH (12:32)
[2018-05-31] MEDS: NEUTRA-PHOS 250 MG TABLET PO SCH ×2 (12:32→17:59)
--- NOTE | 2018-05-31 16:02 | PROVIDER PROGRESS NOTE ---
Subjective - Prog Note Date Prog Note Date: 05/31/18 - Subjective Pt reports feeling: No change Subjective: pt report he had fever on last night. pt denies chest pain, headache. Current Medications - Current Medications Current Medications: Active Medications Acetaminophen (Tylenol) 650 mg PO Q4HR PRN PRN Reason: Pain or Fever > 38C (100.4F) Chlordiazepoxide HCl (Librium) 25 mg PO Q6HR YANI Last Admin: 05/31/18 12:31 Dose: 25 mg Clonidine HCl (Catapres) 0.1 mg PO BID PRN PRN Reason: Hypertensive Emergency Diltiazem HCl (Cardizem Cd) 120 mg PO DAILY [facility] Last Admin: 05/31/18 12:31 Dose: 120 mg Diltiazem HCl (Cardizem Cd) 180 mg PO DAILY YANI Last Admin: 05/31/18 12:31 Dose: 180 mg Hydromorphone HCl (Dilaudid (Vial)) 2 mg IVP Q2H PRN PRN Reason: Pain 8 to 10 Last Admin: 05/31/18 10:59 Dose: 2 mg Famotidine (Pepcid 20 Mg/50 Ml) 50 mls @ 100 mls/hr IV BID [facility] Last Infusion: 05/31/18 08:30 Dose: Infused Potassium Chloride/Sodium Chloride (Normal Saline 0.9% W/20 Meq Kcl) 1,000 mls @ 125 mls/hr IV .Q8H YANI Last Admin: 05/31/18 09:28 Dose: 125 mls/hr Piperacillin Sod/Tazobactam (Sod 3.375 gm/ Sodium Chloride) 100 mls @ 200 mls/h r IV Q6H YANI Last Admin: 05/31/18 16:04 Dose: 200 mls/hr Vancomycin HCl 2 gm/ Sodium (Chloride) 500 mls @ 250 mls/hr IV ONCE YANI Stop: 05/31/18 21:00 Last Infusion: 05/31/18 15:00 Dose: Infused Vancomycin HCl 1.5 gm/ Sodium (Chloride) 500 mls @ 250 mls/hr IV Q12H [facility] Lisinopril (Zestril) 10 mg PO DAILY [facility] Last Admin: 05/31/18 12:30 Dose: 10 mg Lorazepam (Ativan Inj (Vial)) 1 mg IVP Q2H PRN PRN Reason: Alcohol Withdrawal Non-Formulary Medication (Sulfasalazine [Sulfasalazine Dr]) 500 mg PO DAILY [facility] Ondansetron HCl (Zofran Inj) 4 mg IVP Q6HR PRN PRN Reason: Nausea / Vomiting Last Admin: 05/30/18 02:45 Dose: 4 mg Polyethylene Glycol (Miralax) 17 gm PO DAILY [facility] Last Admin: 05/31/18 09:26 Dose: Not Given Multivit/Folic Acid/Iron (Trinatal Rx 1) 1 tab PO DAILYWM [facility] Last Admin: 05/31/18 12:32 Dose: 1 tab Sodium Chloride (Normal Saline Flush 0.9%) 10 ml IVP PRN PRN PRN Reason: NEEDED PER PROVIDER ORDERS Last Admin: 05/31/18 10:59 Dose: 10 ml Sodium Chloride (Normal Saline Flush 0.9%) 10 ml IVP 0100,0900,1700 [facility] Last Admin: 05/31/18 08:08 Dose: 10 ml Sodium Phosphate (K-Phos Neutral) 250 mg PO TIDWM [facility] Last Admin: 05/31/18 12:32 Dose: 250 mg Temazepam (Restoril) 15 mg PO QPM PRN PRN Reason: Insomnia Thiamine HCl (Vitamin B-1) 100 mg PO DAILY [facility] Last Admin: 05/31/18 12:32 Dose: 100 mg Lisinopril 10 mg PO DAILY 05/30/18 Sulfasalazine [Sulfasalazine Dr] 500 mg PO DAILY 05/30/18 dilTIAZem HCl [Diltiazem 24Hr ER] 300 mg PO DAILY 05/30/18 Ascorbic Acid [Vitamin C] 500 mg PO DAILY 05/31/18 Cholecalciferol (Vitamin D3) [Vitamin D3] 1,000 unit PO DAILY 05/31/18 Multivitamin [Multiple Vitamins] 1 each PO DAILY 05/31/18 [place]-3/Dha/Epa/Fish Oil [Fish Oil 1,000 mg Softgel] 1,000 mg PO DAILY 05/31/18 Objective - Vital Signs/Intake & Output Reviewed Vital Signs: Yes Vital Signs: Vital Signs x48h Temp Pulse Resp BP Pulse Ox 05/31/18 15:43 95 18 152/86 H 98 05/31/18 12:28 37.2 C 112 H 18 148/100 H 98 05/31/18 09:00 37.1 C 100 18 152/94 H 100 Intake & Output: Intake & Output 05/28/18 05/29/18 05/30/18 05/31/18 23:59 23:59 23:59 23:59 Intake Total 3855.333 5051.2 Output Total 850 1100 Balance 3005.333 3951.2 - Objective General Appearance: positive: No acute distress, Alert. negative: Lethargic Eyes Bilateral: positive: Normal inspection, PERRL, No lid inflammation, Conjunctivae nml ENT: positive: ENT inspection nml, Pharynx nml, No signs of dehydration. negative: Purulent nasal drainage, Pharyngeal erythema, Oral lesions Neck: positive: Nml inspection, Thyroid nml, No JVD, Trachea midline. negative: Thyromegaly, Lymphadenopathy (R), Lymphadenopathy (L), Stiff neck, Swelling/bruising, Tracheal deviation Respiratory: positive: Chest non-tender, No respiratory distress, Breath sounds nml. negative: Wheezes, Rales, Rhonchi Cardiovascular: positive: Regular rate & rhythm, No murmur, No gallop. negative: Irregularly irregular, Extrasystoles, Tachycardia, Bradycardia, JVD present, Systolic murmur, Diastolic murmur Peripheral Pulses: 2+ Radial (R), 2+ Radial (L), 2+ Dorsalis pedis (R), 2+ Dorsalis pedis (L) Abdomen: positive: No organomegaly, Nml bowel sounds, No distention, Tenderness. negative: Guarding, Rebound Back: positive: Nml inspection. negative: CVA tenderness (R), CVA tenderness (L) Skin: positive: Color nml, No rash, Warm, Dry. negative: Cyanosis, Diaphoresis, Pallor Extremities: positive: Non-tender, Full ROM, Nml appearance. negative: Calf tenderness, Joint swelling, Jenn's sign/cords Neurologic/Psychiatric: positive: Oriented x3, Motor nml, Sensation nml, Mood/affect nml. negative: Weakness, Sensory loss, Facial droop, Slurred/abnml speech, Depressed mood/affect - Lab Results Fish Bones: 05/31/18 05:56 05/31/18 05:56 Other Labs: Lab Results x24hrs 05/31/18 05/31/18 Range/Units 05:56 05:56 WBC 16.1 H (4.8-10.8) x10^3/uL RBC 3.63 L (4.70-6.10) 10^6/uL Hgb 9.2 L (14.0-18.0) g/dL Hct 27.8 L (42.0-52.0) % MCV 76.6 L (80.0-94.0) fL MCH 25.3 L (27.0-31.0) pg MCHC 33.0 (32.0-36.0) g/dL RDW 16.4 H (12.0-15.0) % Plt Count 79 L (130-450) 10^3/uL MPV 8.0 (7.4-11.4) fL Neut # (Auto) 12.7 H (1.5-6.6) 10^3/uL Lymph # (Auto) 1.8 (1.5-3.5) 10^3/uL [place] # (Auto) 1.5 H (0.0-1.0) 10^3/uL Eos # (Auto) 0.1 (0.0-0.7) 10^3/uL Baso # (Auto) 0.1 (0.0-0.1) 10^3/uL Absolute Nucleated RBC 0.03 x10^3/uL Nucleated RBC % 0.2 /100WBC Sodium 137 (135-145) mmol/L Potassium 3.4 L (3.5-5.0) mmol/L Chloride 110 (101-111) mmol/L Carbon Dioxide 21 (21-32) mmol/L Anion Gap 6.0 (6-13) BUN 17 (6-20) mg/dL Creatinine 1.0 (0.6-1.2) mg/dL Estimated GFR (MDRD) 93 (>89) Glucose 101 H (70-100) mg/dL Calcium 7.3 L (8.5-10.3) mg/dL Phosphorus 1.5 L (2.5-4.6) mg/dL Magnesium 1.4 L (1.7-2.8) mg/dL Total Bilirubin 2.9 H (0.2-1.0) mg/dL GGT 278 H (8-55) IU/L AST 38 (10-42) IU/L ALT 24 (10-60) IU/L Alkaline Phosphatase 86 (42-121) IU/L Total Protein 4.8 L (6.7-8.2) g/dL Albumin 2.1 L (3.2-5.5) g/dL Globulin 2.7 (2.1-4.2) g/dL Albumin/Globulin Ratio 0.8 L (1.0-2.2) Amylase 501 H* (28-100) U/L Lipase 343 H (22-51) U/L ABX Reporting Has patient been on IV antibiotics over the past 48 hours?: Yes Assessment/Plan - Problem List (1) Fever and chills Impression: pt had fever at 38.7 with chill on last night CXR, UA, followup blood culture, followup start with antibiotics, Zosyn and vancomycine continue IVF of NS (2) Pneumonia Impression: CXR reveals left basilar pneumonia start with antibiotics Zosyn and Vancomycin followup blood culture (3) Pancreatitis Impression: improved. Lipase is significantly down continue IVF of NS, continue Lab monitor bowel rest, with clear diet. will consider advance diet as pt tolerate. Qualifiers: Chronicity: acute Pancreatitis type: unspecified pancreatitis type Acute pancreatitis complication: no infection or necrosis Qualified Code(s): K85.90 - Acute pancreatitis without necrosis or infection, unspecified (4) Alcohol abuse Impression: advise pt quit alcohol CAWA protocol, continue continue B1, folic acid, multiple vitamin (5) Acute kidney injury Impression: resolved, now is as pt's baseline. (6) HTN (hypertension) Impression: continue home meds, Lisinopril. add Clonidine PRN continue vital monitor
[2018-05-31] MEDS ORDERED: LOPERAMIDE 2 MG CAPSULE PO PRN (20:38)
[2018-05-31] MEDS: ACETAMINOPHEN 325 MG TABLET PO PRN (21:18)
[2018-05-31] MEDS: WITCH HAZEL/GLYCERIN 1 EACH MED..PAD TOP PRN (21:19)
[2018-05-31] MEDS: VANCOMYCIN INJ 1.5 GM in SODIUM CHLORIDE 0.9% 500 ML IV SCH (22:16)
[2018-06-01] MEDS: SODIUM CHLORIDE FLUSH 0.9% 10 ML SYRINGE IVP SCH ×3 (00:36→16:30)
[2018-06-01] MEDS: chlordiazePOXIDE 25 MG CAPSULE PO SCH ×4 (00:37→17:12)
[2018-06-01] MEDS: NS W/20 MEQ KCL 1,000 ML IV SCH ×2 (00:37→17:11)
[2018-06-01] MEDS: PIPERACILLIN/TAZOBACTAM 3.375 GM in SODIUM CHLORIDE 0.9% MINIBAG 100 ML IV SCH ×4 (03:11→22:13)
[2018-06-01 04:05] LABS: BILIRUBIN,URINE NEGATIVE (NEGATIVE); GLUCOSE, URINE (UA) NEGATIVE (NEGATIVE); KETONES,URINE (UA) NEGATIVE (NEGATIVE); LEUKOCYTE ESTERASE, URINE NEGATIVE (NEGATIVE); NITRITE,URINE NEGATIVE (NEGATIVE); OCCULT BLOOD,URINE TRACE-LYSE (NEGATIVE); PROTEIN,URINE 100 mg/dL (NEGATIVE); UROBILINOGEN,URINE 1 (NORMAL) E.U./dL (NORMAL)
[2018-06-01 04:06] LABS: CLARITY,URINE CLEAR (CLEAR)
[2018-06-01 04:12] LABS: BACTERIA,URINE Rare /HPF (None Seen); CASTS, URINE 6-10 Hyaline Casts /LPF; MUCUS,URINE Few Strands; RBC,URINE 0-5 /HPF (0-5); SQUAMOUS EPITHELIAL CELL,UR RARE Squamous (<= Few)
[2018-06-01 07:51] LABS: BASOPHILS % (AUTO) 0.1 %; EOSINOPHILS # (AUTO) 0.2 10^3/uL (0.0-0.7); EOSINOPHILS % (AUTO) 1.3 %; HGB - HEMOGLOBIN 7.4 g/dL (14.0-18.0); LYMPHOCYTES # (AUTO) 1.3 10^3/uL (1.5-3.5); LYMPHOCYTES % (AUTO) 8.6 %; MEAN CORPUSCULAR HEMOGLOBIN 25.4 pg (27.0-31.0); MEAN CORPUSCULAR HGB CONC 33.9 g/dL (32.0-36.0); MEAN CORPUSCULAR VOLUME 74.9 fL (80.0-94.0); MEAN PLATELET VOLUME 8.6 fL (7.4-11.4); MONOCYTES # (AUTO) 1.4 10^3/uL (0.0-1.0); MONOCYTES % (AUTO) 9.2 %; NEUTROPHILS # (AUTO) 11.9 10^3/uL (1.5-6.6); NEUTROPHILS % (AUTO) 80.8 %; PLT - PLATELET COUNT 40 10^3/uL (130-450); RED BLOOD COUNT 2.92 10^6/uL (4.70-6.10); RED CELL DISTRIBUTION WIDTH 17.2 % (12.0-15.0); WHITE BLOOD COUNT 14.8 x10^3/uL (4.8-10.8)
[2018-06-01 08:24] LABS: MAGNESIUM 1.7 mg/dL (1.7-2.8); PHOSPHORUS 1.6 mg/dL (2.5-4.6)
[2018-06-01 08:36] LABS: ALBUMIN 1.9 g/dL (3.2-5.5); ALBUMIN/GLOBULIN RATIO 0.8 (1.0-2.2); BILIRUBIN,TOTAL 2.8 mg/dL (0.2-1.0); CALCIUM 6.9 mg/dL (8.5-10.3); TOTAL PROTEIN 4.4 g/dL (6.7-8.2)
[2018-06-01 08:56] LABS: PLATELET ESTIMATE, MANUAL DECREASED (<130,000) (NORMAL); PLATELET MORPHOLOGY 1+ LARGE PLATELETS (NORMAL)
[2018-06-01] MEDS ORDERED: ENOXAPARIN 40 MG/0.4 ML SYRINGE SUBQ SCH (09:00)
[2018-06-01] MEDS ORDERED: FOLIC ACID 1 MG TABLET PO SCH (09:00)
[2018-06-01] MEDS ORDERED: NON FORMULARY MED (Lisinopril [Lisinopril] 10 MG) PO SCH (09:00)
[2018-06-01] MEDS: diltiaZEM CD 120 MG CAPSULE PO SCH (09:02)
[2018-06-01] MEDS: PRENATAL VITAMIN TABLET PO SCH (09:02)
[2018-06-01] MEDS: DIPHENOX/ATROPINE 2.5/0.025 MG TABLET PO PRN ×2 (09:02→16:29)
[2018-06-01] MEDS: THIAMINE 100 MG TABLET PO SCH (09:02)
[2018-06-01] MEDS: diltiaZEM CD 180 MG CAPSULE PO SCH (09:03)
[2018-06-01] MEDS: NEUTRA-PHOS 250 MG TABLET PO SCH ×3 (09:03→17:12)
[2018-06-01] MEDS: LISINOPRIL 5 MG TABLET PO SCH (09:03)
[2018-06-01] MEDS: SACCHAROMYCES BOULARDII 250 MG CAPSULE PO SCH ×2 (09:03→17:12)
[2018-06-01] MEDS: sulfaSALAzine 500 MG TABLET PO SCH (09:03)
[2018-06-01] MEDS: POLYETHYLENE GLYCOL 3350 17 GM PACKET PO SCH (09:05)
[2018-06-01] MEDS: VANCOMYCIN INJ 1.5 GM in SODIUM CHLORIDE 0.9% 500 ML IV SCH ×2 (12:37→22:51)
[2018-06-01] MEDS ORDERED: POTASSIUM CHLORIDE 20 MEQ TABLET PO ONE (13:38)
[2018-06-01] MEDS ORDERED: CALCIUM GLUCONATE 1,000 MG in SODIUM CHLORIDE 0.9% 50 ML IV ONE (13:40)
[2018-06-01] MEDS: FERROUS SULFATE 325 MG TABLET PO SCH (14:29)
[2018-06-01] MEDS: FAMOTIDINE 20 MG/50 ML 50 ML IV SCH (14:37)
--- NOTE | 2018-06-01 15:33 | PROVIDER PROGRESS NOTE ---
Objective - Vital Signs/Intake & Output Vital Signs: Vital Signs x48h Temp Pulse Resp BP Pulse Ox 06/01/18 12:27 36.9 C 90 18 147/94 H 100 06/01/18 09:01 37.1 C 104 H 18 122/79 99 Intake & Output: Intake & Output 05/29/18 05/30/18 05/31/18 06/01/18 23:59 23:59 23:59 23:59 Intake Total 3855.333 7101.2 2516.25 Output Total 850 1200 600 Balance 3005.333 5901.2 1916.25 - Lab Results Fish Bones: 06/02/18 05:45 06/02/18 05:45 Other Labs: Lab Results x24hrs 06/01/18 06/01/18 06/01/18 Range/Units 07:40 07:40 07:40 WBC 14.8 H (4.8-10.8) x10^3/uL RBC 2.92 L (4.70-6.10) 10^6/uL Hgb 7.4 L (14.0-18.0) g/dL Hct 21.8 L (42.0-52.0) % MCV 74.9 L (80.0-94.0) fL MCH 25.4 L (27.0-31.0) pg MCHC 33.9 (32.0-36.0) g/dL RDW 17.2 H (12.0-15.0) % Plt Count 40 L (130-450) 10^3/uL MPV 8.6 (7.4-11.4) fL Neut # (Auto) 11.9 H (1.5-6.6) 10^3/uL Lymph # (Auto) 1.3 L (1.5-3.5) 10^3/uL [place] # (Auto) 1.4 H (0.0-1.0) 10^3/uL Eos # (Auto) 0.2 (0.0-0.7) 10^3/uL Baso # (Auto) 0.0 (0.0-0.1) 10^3/uL Absolute Nucleated RBC 0.01 x10^3/uL Nucleated RBC % 0.0 /100WBC Manual Slide Review Indicated WBC Morphology NORMAL APPEARANCE (NORMAL) Platelet Estimate DECREASED (<130,000) (NORMAL) Platelet Morphology 1+ LARGE PLATELETS (NORMAL) RBC Morph Micro Appear 1+ TARGET CELLS (NORMAL) Sodium 136 (135-145) mmol/L Potassium 3.1 L (3.5-5.0) mmol/L Chloride 108 (101-111) mmol/L Carbon Dioxide 19 L (21-32) mmol/L Anion Gap 9.0 (6-13) BUN 16 (6-20) mg/dL Creatinine 1.0 (0.6-1.2) mg/dL Estimated GFR (MDRD) 93 (>89) Glucose 54 L* (70-100) mg/dL Calcium 6.9 L (8.5-10.3) mg/dL Phosphorus 1.6 L (2.5-4.6) mg/dL Magnesium 1.7 (1.7-2.8) mg/dL Total Bilirubin 2.8 H (0.2-1.0) mg/dL AST 28 (10-42) IU/L ALT 19 (10-60) IU/L Alkaline Phosphatase 80 (42-121) IU/L Total Protein 4.4 L (6.7-8.2) g/dL Albumin 1.9 L (3.2-5.5) g/dL Globulin 2.5 (2.1-4.2) g/dL Albumin/Globulin Ratio 0.8 L (1.0-2.2) Amylase 264 H (28-100) U/L Lipase 129 H (22-51) U/L Urine Color Urine Clarity (CLEAR) Urine pH (5.0-7.5) PH Ur Specific [place] (1.002-1.030) Urine Protein (NEGATIVE) mg/dL Urine Glucose (UA) (NEGATIVE) mg/dL Urine Ketones (NEGATIVE) mg/dL Urine Occult Blood (NEGATIVE) Urine Nitrite (NEGATIVE) Urine Bilirubin (NEGATIVE) Urine Urobilinogen (NORMAL) E.U./dL Ur Leukocyte Esterase (NEGATIVE) Urine RBC (0-5) /HPF Urine WBC (0-3) /HPF Ur Squamous Epith Cells (<= Few) Urine Bacteria (None Seen) /HPF Urine Casts /LPF Urine Mucus Urine Culture Comments 06/01/18 Range/Units 03:45 WBC (4.8-10.8) x10^3/uL RBC (4.70-6.10) 10^6/uL Hgb (14.0-18.0) g/dL Hct (42.0-52.0) % MCV (80.0-94.0) fL MCH (27.0-31.0) pg MCHC (32.0-36.0) g/dL RDW (12.0-15.0) % Plt Count (130-450) 10^3/uL MPV (7.4-11.4) fL Neut # (Auto) (1.5-6.6) 10^3/uL Lymph # (Auto) (1.5-3.5) 10^3/uL [place] # (Auto) (0.0-1.0) 10^3/uL Eos # (Auto) (0.0-0.7) 10^3/uL Baso # (Auto) (0.0-0.1) 10^3/uL Absolute Nucleated RBC x10^3/uL Nucleated RBC % /100WBC Manual Slide Review WBC Morphology (NORMAL) Platelet Estimate (NORMAL) Platelet Morphology (NORMAL) RBC Morph Micro Appear (NORMAL) Sodium (135-145) mmol/L Potassium (3.5-5.0) mmol/L Chloride (101-111) mmol/L Carbon Dioxide (21-32) mmol/L Anion Gap (6-13) BUN (6-20) mg/dL Creatinine (0.6-1.2) mg/dL Estimated GFR (MDRD) (>89) Glucose (70-100) mg/dL Calcium (8.5-10.3) mg/dL Phosphorus (2.5-4.6) mg/dL Magnesium (1.7-2.8) mg/dL Total Bilirubin (0.2-1.0) mg/dL AST (10-42) IU/L ALT (10-60) IU/L Alkaline Phosphatase (42-121) IU/L Total Protein (6.7-8.2) g/dL Albumin (3.2-5.5) g/dL Globulin (2.1-4.2) g/dL Albumin/Globulin Ratio (1.0-2.2) Amylase (28-100) U/L Lipase (22-51) U/L Urine Color YELLOW Urine Clarity CLEAR (CLEAR) Urine pH 6.0 (5.0-7.5) PH Ur Specific [place] 1.015 (1.002-1.030) Urine Protein 100 H (NEGATIVE) mg/dL Urine Glucose (UA) NEGATIVE (NEGATIVE) mg/dL Urine Ketones NEGATIVE (NEGATIVE) mg/dL Urine Occult Blood TRACE-LYSE (NEGATIVE) Urine Nitrite NEGATIVE (NEGATIVE) Urine Bilirubin NEGATIVE (NEGATIVE) Urine Urobilinogen 1 (NORMAL) (NORMAL) E.U./dL Ur Leukocyte Esterase NEGATIVE (NEGATIVE) Urine RBC 0-5 (0-5) /HPF Urine WBC 0-3 (0-3) /HPF Ur Squamous Epith Cells RARE Squamous (<= Few) Urine Bacteria Rare (None Seen) /HPF Urine Casts 6-10 Hyaline Casts /LPF Urine Mucus Few Strands Urine Culture Comments NOT INDICATED Assessment/Plan - Problem List (1) Fever and chills Impression: (1) Fever and chills Impression: 06/01 resolved. no more fever,chill continue antibiotics preliminary blood culture is negative continue lab CBC monitor pt had fever at 38.7 with chill on last night CXR, UA, followup blood culture, followup start with antibiotics, Zosyn and vancomycine continue IVF of NS (2) Pneumonia Impression: 06/01 98% sat on room air, pt did not present respiratory distress continue antibiotics CXR reveals left basilar pneumonia start with antibiotics Zosyn and Vancomycin followup blood culture (3) Pancreatitis Impression: 06/01 pt request regular diet, pt tolerate full liquid pt denies abdominal pain, denies N/V. pt report diarrhea is better controlled improved. Lipase is significantly down continue IVF of NS, continue Lab monitor bowel rest, with clear diet. will consider advance diet as pt tolerate. (4) Alcohol abuse Impression: advise pt quit alcohol CAWA protocol, continue continue B1, folic acid, multiple vitamin (5) Acute kidney injury Impression: resolved, now is as pt's baseline. (6) HTN (hypertension) Impression: continue home meds, Lisinopril. add Clonidine PRN continue vital monitor (7) microcytic anemia HGB is 7.3 today, pt denies GI rectal bleeding, Occult test is negative. unknown etiology. iron study does not indicate iron deficiency pt denies dizziness, chest pain, palpitation, asymptomatic. continue lab monitor, will transfusion as needed (8) diarrhea C.Diff is negative. Imodium and Lomitid PRN pt is better controlled diarrhea today (9) hemorrhoid chronic, pt saw his PCP but did not resolved the problem. hx of hemorrhoid. pt report he feel pain at rectal when he stand. consult with surgeon Dr. Mckeon. will follow up continue warm water bath, hydrocortisone cream (3) Pancreatitis Qualifiers: Chronicity: acute Pancreatitis type: unspecified pancreatitis type Acute pancreatitis complication: no infection or necrosis Qualified Code(s): K85.90 - Acute pancreatitis without necrosis or infection, unspecified
[2018-06-01] MEDS: HYDROmorphone 2 MG/ML VIAL IVP PRN ×2 (16:29→20:18)
--- NOTE | 2018-06-01 19:03 | CONSULTATION NOTE ---
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 Saw his PCP who diagnosed hemorrhoids and prescribed topical hydrocortisone and tucks, without improvement. No hx previous similar problems but has noted past hx of prolapsed hemorrhoids which have required manual reduction, not currently present. No melena/BRBPR, no prior lower gi evaluations, neg FH GI tumors. Since hospitalization he has continued to have loose frequent nonbloody stools. His pancreatiitis pain is improving and he is tolerating solid food well now. History - Past Medical History Cardiovascular: reports: Hypertension, Atrial fibrillation Respiratory: reports: None Neuro: reports: Peripheral neuropathy Endocrine/Autoimmune: reports: None GI: reports: None : reports: None HEENT: reports: None Psych: reports: None Musculoskeletal: reports: Rheumatoid arthritis Derm: reports: None MRSA Hx?: No - Past Surgical History General: reports: Other (umbilical hernia with mesh) - Family & Social History Family History Comment/Other: neg for GI tumors Living arrangement: At home - Substance History Abuse: Recurrent use of substance despite neg consequences: Alcohol (4 beers/day) Meds/Allgy - Home Medications Home Medications: Ambulatory Orders Medication Instructions Recorded Confirmed Lisinopril 10 mg PO DAILY 05/30/18 05/30/18 Sulfasalazine [Sulfasalazine Dr] 500 mg PO DAILY 05/30/18 05/30/18 dilTIAZem HCl [Diltiazem 24Hr ER] 300 mg PO DAILY 05/30/18 05/30/18 Ascorbic Acid [Vitamin C] 500 mg PO DAILY 05/31/18 05/31/18 Cholecalciferol (Vitamin D3) 1,000 unit PO DAILY 05/31/18 05/31/18 [Vitamin D3] Multivitamin [Multiple Vitamins] 1 each PO DAILY 05/31/18 05/31/18 [place]-3/Dha/Epa/Fish Oil [Fish Oil 1,000 mg PO DAILY 05/31/18 05/31/18 1,000 mg Softgel] - Allergies Allergies/Adverse Reactions: Allergies Allergy/AdvReac Type Severity Reaction Status Date / Time amoxicillin Allergy Respiratory Verified 05/29/18 19:52 Review of Systems - Gastrointestinal Gastrointestinal: reports: Abdominal pain, Diarrhea, Change in bowel habits, Nausea, Vomiting. denies: Rectal bleeding, Black stools, Bloody stools, Coffee grounds emesis - Hematologic/Lymphatic Hematologic/Lymphatic: denies: Blood clots, Bleeding tendencies Exam - Vital Signs Reviewed Vital Signs: Yes Vital Signs: Vital Signs x48h Temp Pulse Resp BP Pulse Ox 06/01/18 17:48 36.8 C 88 18 136/93 H 98 06/01/18 12:27 36.9 C 90 18 147/94 H 100 - Physical Exam General Appearance: positive: No acute distress, Alert Eyes Bilateral: positive: Normal inspection ENT: positive: ENT inspection nml, Pharynx nml, No signs of dehydration Neck: positive: Nml inspection, No JVD, Trachea midline. negative: Lymphadenopathy (R), Lymphadenopathy (L) Respiratory: positive: Chest non-tender, No respiratory distress, Breath sounds nml. negative: Wheezes, Rales, Rhonchi Cardiovascular: positive: Regular rate & rhythm, No murmur, No gallop Abdomen: positive: Non-tender, Nml bowel sounds. negative: Hepatomegaly, Splenomegaly, Mass Rectal: positive: Tenderness (exquisite tenderness in posterior midline associated with mucosal irregularity, likely fissure), Hemorrhoid (uninflamed external hemorrhoidal skin tags evident) Extremities: positive: No pedal edema. 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 - Plan Plan: treat diarrhea: low residue diet, consider loperamide; sitz baths; outpatient f/u in my office following discharge. May need further intervention if controlling diarrhea fails to allow fissure to heal. - Lab Results Fish Bones: 06/01/18 07:40 06/01/18 07:40
[2018-06-01] MEDS: HYDROCORTISONE 1% OINTMENT 28 GM TUBE TOP SCH (22:17)
[2018-06-01] MEDS: FAMOTIDINE 20 MG TABLET PO SCH (22:17)
[2018-06-02] MEDS: chlordiazePOXIDE 25 MG CAPSULE PO SCH ×4 (00:35→17:22)
[2018-06-02] MEDS: NS W/20 MEQ KCL 1,000 ML IV SCH ×3 (02:53→12:19)
[2018-06-02] MEDS: PIPERACILLIN/TAZOBACTAM 3.375 GM in SODIUM CHLORIDE 0.9% MINIBAG 100 ML IV SCH ×4 (03:08→23:32)
[2018-06-02] MEDS: SODIUM CHLORIDE FLUSH 0.9% 10 ML SYRINGE IVP SCH ×3 (03:22→17:22)
[2018-06-02] MEDS: ACETAMINOPHEN 325 MG TABLET PO PRN (05:45)
[2018-06-02] MEDS: WITCH HAZEL/GLYCERIN 1 EACH MED..PAD TOP PRN (05:57)
[2018-06-02] MEDS: HYDROCORTISONE 1% OINTMENT 28 GM TUBE TOP SCH ×3 (05:57→21:12)
[2018-06-02 05:59] LABS: INR 1.2 (0.8-1.2); PT - PROTHROMBIN TIME 13.1 secs (9.9-12.6)
[2018-06-02 06:09] LABS: BASOPHILS % (AUTO) 0.1 %; EOSINOPHILS % (AUTO) 1.8 %; LYMPHOCYTES # (AUTO) 1.4 10^3/uL (1.5-3.5); LYMPHOCYTES % (AUTO) 10.4 %; MEAN CORPUSCULAR HEMOGLOBIN 24.9 pg (27.0-31.0); MEAN CORPUSCULAR HGB CONC 32.9 g/dL (32.0-36.0); MEAN CORPUSCULAR VOLUME 75.8 fL (80.0-94.0); MEAN PLATELET VOLUME 8.9 fL (7.4-11.4); MONOCYTES % (AUTO) 9.9 %; NEUTROPHILS # (AUTO) 10.8 10^3/uL (1.5-6.6); NEUTROPHILS % (AUTO) 77.8 %; PLT - PLATELET COUNT 58 10^3/uL (130-450); RED BLOOD COUNT 2.66 10^6/uL (4.70-6.10); RED CELL DISTRIBUTION WIDTH 18.1 % (12.0-15.0); WHITE BLOOD COUNT 13.9 x10^3/uL (4.8-10.8)
[2018-06-02 06:10] LABS: EOSINOPHILS # (AUTO) 0.3 10^3/uL (0.0-0.7); MONOCYTES # (AUTO) 1.4 10^3/uL (0.0-1.0)
[2018-06-02 06:11] LABS: HGB - HEMOGLOBIN 6.6 g/dL (14.0-18.0)
[2018-06-02 06:12] LABS: ALBUMIN 1.9 g/dL (3.2-5.5); ALBUMIN/GLOBULIN RATIO 0.8 (1.0-2.2); BILIRUBIN,TOTAL 1.4 mg/dL (0.2-1.0); CALCIUM 7.4 mg/dL (8.5-10.3); MAGNESIUM 1.6 mg/dL (1.7-2.8); PHOSPHORUS 2.2 mg/dL (2.5-4.6); TOTAL PROTEIN 4.4 g/dL (6.7-8.2)
[2018-06-02] MEDS ORDERED: MAGNESIUM SULFATE 1 GM in SODIUM CHLORIDE 0.9% 50 ML IV ONE (08:15)
[2018-06-02] MEDS ORDERED: POTASSIUM CHLORIDE 20 MEQ TABLET PO ONE (08:15)
[2018-06-02] MEDS ORDERED: CALCIUM GLUCONATE 1,000 MG in SODIUM CHLORIDE 0.9% 50 ML IV ONE (08:15)
[2018-06-02] MEDS: LISINOPRIL 5 MG TABLET PO SCH (08:44)
[2018-06-02] MEDS: FAMOTIDINE 20 MG TABLET PO SCH ×2 (08:44→21:28)
[2018-06-02] MEDS: THIAMINE 100 MG TABLET PO SCH (08:44)
[2018-06-02] MEDS: sulfaSALAzine 500 MG TABLET PO SCH (08:44)
[2018-06-02] MEDS: SACCHAROMYCES BOULARDII 250 MG CAPSULE PO SCH ×2 (08:45→17:21)
[2018-06-02] MEDS: PRENATAL VITAMIN TABLET PO SCH (08:45)
[2018-06-02] MEDS: diltiaZEM CD 180 MG CAPSULE PO SCH (08:45)
[2018-06-02] MEDS: FERROUS SULFATE 325 MG TABLET PO SCH (08:45)
[2018-06-02] MEDS: diltiaZEM CD 120 MG CAPSULE PO SCH (08:45)
[2018-06-02] MEDS: POLYETHYLENE GLYCOL 3350 17 GM PACKET PO SCH (08:45)
[2018-06-02] MEDS: NEUTRA-PHOS 250 MG TABLET PO SCH ×3 (08:45→17:21)
[2018-06-02] MEDS: VANCOMYCIN INJ 1.5 GM in SODIUM CHLORIDE 0.9% 500 ML IV SCH (10:19)
[2018-06-02 14:22] LABS: VANCOMYCIN,TROUGH 31.5 ug/mL (10.0-20.0)
--- NOTE | 2018-06-02 15:02 | PROVIDER PROGRESS NOTE ---
Subjective - Prog Note Date Prog Note Date: 06/02/18 - Subjective Pt reports feeling: Improved Subjective: pt report he feels better. pt tolerate regular diet, no N/V/D. No fever, chill, chest pain, SOB. Pt's HGB is down to 6.6. pt feel fatigue, order two units blood for pt. pt state he will ask second opinion from his PCP for if continue blood transfusi on of two units blood. pt asked me for tobacco smoking. I explained to pt we can not allow pt smoke tobacco at this hospital. This is the policy. pt's reported on yesterday pt actually drink 8 beers and liquor daily but pt reported to me " once a while a beer." pt's also report ED physician did not promise to pt we have GI doctor and will consult for pt. But pt state to me ED promised to have GI doctor to consult with him "that is the reason I stayed in here." Current Medications - Current Medications Current Medications: Active Medications Acetaminophen (Tylenol) 650 mg PO Q4HR PRN PRN Reason: Pain or Fever > 38C (100.4F) Last Admin: 06/02/18 05:45 Dose: 650 mg Chlordiazepoxide HCl (Librium) 25 mg PO Q6HR FOR[facility], [facility] Last Admin: 06/02/18 12:22 Dose: 25 mg Clonidine HCl (Catapres) 0.1 mg PO BID PRN PRN Reason: Hypertensive Emergency Diltiazem HCl (Cardizem Cd) 120 mg PO DAILY [facility], [facility] Last Admin: 06/02/18 08:45 Dose: 120 mg Diltiazem HCl (Cardizem Cd) 180 mg PO DAILY [facility], [facility] Last Admin: 06/02/18 08:45 Dose: 180 mg Diphenoxylate HCl/Atropine (Lomotil) 1 tab PO QID PRN PRN Reason: Diarrhea Last Admin: 06/01/18 16:29 Dose: 1 tab Famotidine (Pepcid) 20 mg PO BID [facility], [facility] Last Admin: 06/02/18 08:44 Dose: 20 mg Ferrous Sulfate (Feosol) 325 mg PO DAILYWM [facility], [facility] Last Admin: 06/02/18 08:45 Dose: 325 mg Hydrocortisone (Hydrocortisone) 0 applic TOP TID [facility], [facility] Last Admin: 06/02/18 13:50 Dose: 1 applic Hydromorphone HCl (Dilaudid (Vial)) 2 mg IVP Q2H PRN PRN Reason: Pain 8 to 10 Last Admin: 06/01/18 20:18 Dose: 2 mg Potassium Chloride/Sodium Chloride (Normal Saline 0.9% W/20 Meq Kcl) 1,000 mls @ 125 mls/hr IV .Q8H [facility], [facility] Last Infusion: 06/02/18 17:05 Dose: 125 mls/hr Piperacillin Sod/Tazobactam (Sod 3.375 gm/ Sodium Chloride) 100 mls @ 200 mls/hr IV Q6H [facility], [facility] Last Infusion: 06/02/18 17:05 Dose: Infused Vancomycin HCl 1 gm/ Sodium (Chloride) 250 mls @ 167 mls/hr IV Q12H [facility], [facility] Lisinopril (Zestril) 10 mg PO DAILY [facility] Last Admin: 06/02/18 08:44 Dose: 10 mg Loperamide HCl (Imodium) 2 mg PO QID PRN PRN Reason: Diarrhea Last Admin: 05/31/18 21:19 Dose: 2 mg Lorazepam (Ativan Inj (Vial)) 1 mg IVP Q2H PRN PRN Reason: Alcohol Withdrawal Last Admin: 06/01/18 08:38 Dose: 1 mg Ondansetron HCl (Zofran Inj) 4 mg IVP Q6HR PRN PRN Reason: Nausea / Vomiting Last Admin: 05/30/18 02:45 Dose: 4 mg Polyethylene Glycol (Miralax) 17 gm PO DAILY [facility] Last Admin: 06/02/18 08:45 Dose: Not Given Multivit/Folic Acid/Iron (Trinatal Rx 1) 1 tab PO DAILYWM [facility], [facility] Last Admin: 06/02/18 08:45 Dose: 1 tab Saccharomyces Boulardii (Florastor) 250 mg PO BIDWM [facility], [facility] Last Admin: 06/02/18 08:45 Dose: 250 mg Sodium Chloride (Normal Saline Flush 0.9%) 10 ml IVP PRN PRN PRN Reason: NEEDED PER PROVIDER ORDERS Last Admin: 05/31/18 10:59 Dose: 10 ml Sodium Chloride (Normal Saline Flush 0.9%) 10 ml IVP 0100,0900,1700 [facility] Last Admin: 06/02/18 08:45 Dose: 10 ml Sodium Phosphate (K-Phos Neutral) 250 mg PO TIDWM [facility] Last Admin: 06/02/18 12:22 Dose: 250 mg Sulfasalazine (Azulfidine) 500 mg PO DAILY [facility] Last Admin: 06/02/18 08:44 Dose: 500 mg Temazepam (Restoril) 15 mg PO QPM PRN PRN Reason: Insomnia Thiamine HCl (Vitamin B-1) 100 mg PO DAILY [facility] Last Admin: 06/02/18 08:44 Dose: 100 mg Witch Piedad/Glycerin (Tucks) 1 each TOP PRN PRN PRN Reason: ITCHING Last Admin: 06/02/18 05:57 Dose: 1 each Lisinopril 10 mg PO DAILY 05/30/18 Sulfasalazine [Sulfasalazine Dr] 500 mg PO DAILY 05/30/18 dilTIAZem HCl [Diltiazem 24Hr ER] 300 mg PO DAILY 05/30/18 Ascorbic Acid [Vitamin C] 500 mg PO DAILY 05/31/18 Cholecalciferol (Vitamin D3) [Vitamin D3] 1,000 unit PO DAILY 05/31/18 Multivitamin [Multiple Vitamins] 1 each PO DAILY 05/31/18 [place]-3/Dha/Epa/Fish Oil [Fish Oil 1,000 mg Softgel] 1,000 mg PO DAILY 05/31/18 Objective - Vital Signs/Intake & Output Reviewed Vital Signs: Yes Vital Signs: Vital Signs x48h Temp Pulse Resp BP Pulse Ox 06/02/18 13:15 37 C 82 20 136/79 H 100 06/02/18 07:31 36.4 C L 86 20 116/72 98 Intake & Output: Intake & Output 05/30/18 05/31/18 06/01/18 06/02/18 23:59 23:59 23:59 23:59 Intake Total 3855.333 7101.2 3750.00 4348.667 Output Total 850 1200 600 350 Balance 3005.333 5901.2 3150.00 3998.667 - Objective General Appearance: positive: No acute distress, Alert. negative: Lethargic Eyes Bilateral: positive: Normal inspection, PERRL, No lid inflammation, Conjunctivae nml ENT: positive: ENT inspection nml, Pharynx nml, No signs of dehydration. negative: Purulent nasal drainage, Pharyngeal erythema, Oral lesions Neck: positive: Nml inspection, Thyroid nml, No JVD, Trachea midline. negative: Thyromegaly, Lymphadenopathy (R), Lymphadenopathy (L), Stiff neck, Swelling/bruising, Tracheal deviation Respiratory: positive: Chest non-tender, No respiratory distress, Breath sounds nml. negative: Wheezes, Rales, Rhonchi Cardiovascular: positive: Regular rate & rhythm, No murmur, No gallop. negative: Irregularly irregular, Extrasystoles, Tachycardia, Bradycardia, JVD present, Systolic murmur, Diastolic murmur Peripheral Pulses: 2+ Radial (R), 2+ Radial (L), 2+ Dorsalis pedis (R), 2+ Dorsalis pedis (L) Abdomen: positive: Non-tender, No organomegaly, Nml bowel sounds, No distention. negative: Tenderness, Guarding, Rebound Back: positive: Nml inspection. negative: CVA tenderness (R), CVA tenderness (L) Skin: positive: Color nml, No rash, Warm, Dry. negative: Cyanosis, Diaphoresis, Pallor Extremities: positive: Non-tender, Full ROM, Nml appearance. negative: Calf tenderness, Joint swelling, Jenn's sign/cords Neurologic/Psychiatric: positive: Oriented x3, Sensation nml, Mood/affect nml. negative: Weakness, Sensory loss, Facial droop, Slurred/abnml speech, Depressed mood/affect - Lab Results Fish Bones: 06/02/18 05:45 06/02/18 05:45 Other Labs: Lab Results x24hrs 06/02/18 06/02/18 06/02/18 Range/Units 09:54 06:35 05:45 WBC (4.8-10.8) x10^3/uL RBC (4.70-6.10) 10^6/uL Hgb (14.0-18.0) g/dL Hct (42.0-52.0) % MCV (80.0-94.0) fL MCH (27.0-31.0) pg MCHC (32.0-36.0) g/dL RDW (12.0-15.0) % Plt Count (130-450) 10^3/uL MPV (7.4-11.4) fL Neut # (Auto) (1.5-6.6) 10^3/uL Lymph # (Auto) (1.5-3.5) 10^3/uL [place] # (Auto) (0.0-1.0) 10^3/uL Eos # (Auto) (0.0-0.7) 10^3/uL Baso # (Auto) (0.0-0.1) 10^3/uL Absolute Nucleated RBC x10^3/uL Nucleated RBC % /100WBC Manual Slide Review RBC Morph Micro Appear (NORMAL) PT 13.1 H (9.9-12.6) secs INR 1.2 (0.8-1.2) Sodium (135-145) mmol/L Potassium (3.5-5.0) mmol/L Chloride (101-111) mmol/L Carbon Dioxide (21-32) mmol/L Anion Gap (6-13) BUN (6-20) mg/dL Creatinine (0.6-1.2) mg/dL Estimated GFR (MDRD) (>89) Glucose (70-100) mg/dL Calcium (8.5-10.3) mg/dL Phosphorus (2.5-4.6) mg/dL Magnesium (1.7-2.8) mg/dL Total Bilirubin (0.2-1.0) mg/dL GGT (8-55) IU/L AST (10-42) IU/L ALT (10-60) IU/L Alkaline Phosphatase (42-121) IU/L Total Protein (6.7-8.2) g/dL Albumin (3.2-5.5) g/dL Globulin (2.1-4.2) g/dL Albumin/Globulin Ratio (1.0-2.2) Amylase (28-100) U/L Lipase (22-51) U/L Last Dose Date 06/02/18 Last Dose Time 0001 Vancomycin Trough 31.5 H* (10.0-20.0) ug/mL Blood Type A POSITIVE Blood Type Recheck Antibody Screen NEGATIVE Crossmatch IS Only See Detail 06/02/18 06/02/18 06/02/18 Range/Units 05:45 05:45 05:32 WBC 13.9 H (4.8-10.8) x10^3/uL RBC 2.66 L (4.70-6.10) 10^6/uL Hgb 6.6 L* (14.0-18.0) g/dL Hct 20.1 L (42.0-52.0) % MCV 75.8 L (80.0-94.0) fL MCH 24.9 L (27.0-31.0) pg MCHC 32.9 (32.0-36.0) g/dL RDW 18.1 H (12.0-15.0) % Plt Count 58 L (130-450) 10^3/uL MPV 8.9 (7.4-11.4) fL Neut # (Auto) 10.8 H (1.5-6.6) 10^3/uL Lymph # (Auto) 1.4 L (1.5-3.5) 10^3/uL [place] # (Auto) 1.4 H (0.0-1.0) 10^3/uL Eos # (Auto) 0.3 (0.0-0.7) 10^3/uL Baso # (Auto) 0.0 (0.0-0.1) 10^3/uL Absolute Nucleated RBC 0.01 x10^3/uL Nucleated RBC % 0.1 /100WBC Manual Slide Review Indicated RBC Morph Micro Appear 2+ HYPOCHROMASIA (NORMAL) PT (9.9-12.6) secs INR (0.8-1.2) Sodium 137 (135-145) mmol/L Potassium 3.4 L (3.5-5.0) mmol/L Chloride 112 H (101-111) mmol/L Carbon Dioxide 19 L (21-32) mmol/L Anion Gap 6.0 (6-13) BUN 12 (6-20) mg/dL Creatinine 1.0 (0.6-1.2) mg/dL Estimated GFR (MDRD) 93 (>89) Glucose 79 (70-100) mg/dL Calcium 7.4 L (8.5-10.3) mg/dL Phosphorus 2.2 L (2.5-4.6) mg/dL Magnesium 1.6 L (1.7-2.8) mg/dL Total Bilirubin 1.4 H (0.2-1.0) mg/dL GGT 180 H (8-55) IU/L AST 20 (10-42) IU/L ALT 17 (10-60) IU/L Alkaline Phosphatase 75 (42-121) IU/L Total Protein 4.4 L (6.7-8.2) g/dL Albumin 1.9 L (3.2-5.5) g/dL Globulin 2.5 (2.1-4.2) g/dL Albumin/Globulin Ratio 0.8 L (1.0-2.2) Amylase 209 H (28-100) U/L Lipase 115 H (22-51) U/L Last Dose Date Last Dose Time Vancomycin Trough (10.0-20.0) ug/mL Blood Type Blood Type Recheck A POSITIVE Antibody Screen Crossmatch IS Only ABX Reporting Has patient been on IV antibiotics over the past 48 hours?: Yes Assessment/Plan - Problem List (1) Fever and chills Impression: 06/02 continue no fever, chill. and WBC is 13.8 from previous 14.6 preliminary blood culture is negative. 98% sats on room air continue antibiotics, lab monitor 06/01 resolved. no more fever,chill continue antibiotics preliminary blood culture is negative continue lab CBC monitor pt had fever at 38.7 with chill on last night CXR, UA, followup blood culture, followup start with antibiotics, Zosyn and vancomycine continue IVF of NS (2) Pneumonia Impression: 06/02 98% sats on room air, improved. continue antibiotics 06/01 98% sat on room air, pt did not present respiratory distress continue antibiotics CXR reveals left basilar pneumonia start with antibiotics Zosyn and Vancomycin followup blood culture (3) Pancreatitis Impression: 06/02 resolved pt's symptoms, no N/V/D. pt tolerate regular diet 06/01 pt request regular diet, pt tolerate full liquid pt denies abdominal pain, denies N/V. pt report diarrhea is better controlled improved. Lipase is significantly down continue IVF of NS, continue Lab monitor bowel rest, with clear diet. will consider advance diet as pt tolerate. (4) Alcohol abuse Impression: advise pt quit alcohol CAWA protocol, continue continue B1, folic acid, multiple vitamin (5) Acute kidney injury Impression: resolved, now is as pt's baseline. (6) HTN (hypertension) Impression: continue home meds, Lisinopril. add Clonidine PRN continue vital monitor (7) microcytic anemia 06/02 pt's HGB drop to 6.6. two units of blood ordered but pt asked his PCP for second opinion to determines if accepting blood transfer HGB is 7.3 today, pt denies GI rectal bleeding, Occult test is negative. unknown etiology. iron study does not indicate iron deficiency pt denies dizziness, chest pain, palpitation, asymptomatic. continue lab monitor, will transfusion as needed (8) diarrhea resolved today C.Diff is negative. Imodium and Lomitid PRN pt is better controlled diarrhea today (9) hemorrhoid 06/02 pt state his pain is better controlled follow up Dr. Mckeon's recommendations, treat diarrhea, low residue diet, sitz baths, May need further intervention if controlling diarrhea fails to allow fissure to heal. discuss with pt about the above plan. chronic, pt saw his PCP but did not resolved the problem. hx of hemorrhoid. pt report he feel pain at rectal when he stand. consult with surgeon Dr. Mckeon. will follow up continue warm water bath, hydrocortisone cream (3) Pancreatitis Qualifiers: Chronicity: acute Pancreatitis type: unspecified pancreatitis type Acute pancreatitis complication: no infection or necrosis Qualified Code(s): K85.90 - Acute pancreatitis without necrosis or infection, unspecified
[2018-06-02] MEDS ORDERED: VANCOMYCIN INJ 1 GM in SODIUM CHLORIDE 0.9% 250 ML IV SCH (22:00)
[2018-06-02 22:04] LABS: VANCOMYCIN,RANDOM 20.5 ug/mL
[2018-06-03] MEDS: chlordiazePOXIDE 25 MG CAPSULE PO SCH (00:18)
[2018-06-03] MEDS: NS W/20 MEQ KCL 1,000 ML IV SCH (02:30)
[2018-06-03] MEDS: PIPERACILLIN/TAZOBACTAM 3.375 GM in SODIUM CHLORIDE 0.9% MINIBAG 100 ML IV SCH ×2 (04:09→08:41)
[2018-06-03 06:13] LABS: BASOPHILS # (AUTO) 0.1 10^3/uL (0.0-0.1); BASOPHILS % (AUTO) 0.6 %; EOSINOPHILS # (AUTO) 0.2 10^3/uL (0.0-0.7); EOSINOPHILS % (AUTO) 1.5 %; LYMPHOCYTES # (AUTO) 1.5 10^3/uL (1.5-3.5); LYMPHOCYTES % (AUTO) 10.3 %; MEAN CORPUSCULAR HEMOGLOBIN 25.6 pg (27.0-31.0); MEAN CORPUSCULAR HGB CONC 32.7 g/dL (32.0-36.0); MEAN CORPUSCULAR VOLUME 78.4 fL (80.0-94.0); MEAN PLATELET VOLUME 9.8 fL (7.4-11.4); MONOCYTES # (AUTO) 1.3 10^3/uL (0.0-1.0); MONOCYTES % (AUTO) 9.2 %; NEUTROPHILS # (AUTO) 11.1 10^3/uL (1.5-6.6); NEUTROPHILS % (AUTO) 78.4 %; PLT - PLATELET COUNT 134 10^3/uL (130-450); RED BLOOD COUNT 3.14 10^6/uL (4.70-6.10); RED CELL DISTRIBUTION WIDTH 19.3 % (12.0-15.0); WHITE BLOOD COUNT 14.2 x10^3/uL (4.8-10.8)
[2018-06-03 06:28] LABS: ALBUMIN/GLOBULIN RATIO 0.7 (1.0-2.2); BILIRUBIN,TOTAL 1.6 mg/dL (0.2-1.0); CALCIUM 7.8 mg/dL (8.5-10.3); CREATININE 1.1 mg/dL (0.6-1.2); CRP - C-REACTIVE PROTEIN 13.4 mg/dL (0-1.0); MAGNESIUM 1.7 mg/dL (1.7-2.8); PHOSPHORUS 2.7 mg/dL (2.5-4.6)
[2018-06-03 06:49] LABS: PLATELET ESTIMATE, MANUAL NORMAL (130-450,000) (NORMAL)
[2018-06-03 07:30] LABS: MEAN RETIC VALUE 122.3; RED BLOOD COUNT 3.1 10^6/uL (4.70-6.10)
[2018-06-03] MEDS: SODIUM CHLORIDE FLUSH 0.9% 10 ML SYRINGE IVP SCH ×2 (07:30→08:41)
[2018-06-03] MEDS: HYDROCORTISONE 1% OINTMENT 28 GM TUBE TOP SCH (07:31)
[2018-06-03 08:28] VITALS: BP 135/91
[2018-06-03] MEDS: diltiaZEM CD 180 MG CAPSULE PO SCH (08:34)
[2018-06-03] MEDS: diltiaZEM CD 120 MG CAPSULE PO SCH (08:34)
[2018-06-03] MEDS: NEUTRA-PHOS 250 MG TABLET PO SCH (08:36)
[2018-06-03] MEDS: THIAMINE 100 MG TABLET PO SCH (08:36)
[2018-06-03] MEDS: sulfaSALAzine 500 MG TABLET PO SCH (08:37)
[2018-06-03] MEDS: FAMOTIDINE 20 MG TABLET PO SCH (08:37)
[2018-06-03] MEDS: SACCHAROMYCES BOULARDII 250 MG CAPSULE PO SCH (08:37)
[2018-06-03] MEDS: PRENATAL VITAMIN TABLET PO SCH (08:37)
--- NOTE | 2018-06-03 08:37 | Discharge Plan ---
Discharge Plan Disposition: Home, Self Care Condition: Poor Prescriptions: Levofloxacin [Levaquin] 750 mg PO DAILY #7 tablet Diet: Regular Activity Restrictions: Activity as Tolerated Shower Restrictions: No (fall precaution) Instruction Topics: Levofloxacin tablets, Alcoholism, Pancreatitis, Pneumonia, Anemia, Hemorrhoids Additional Instructions or Follow Up instructions: You may followup your PCP in one week, may follow up your bonding and composite fabricator, and surgeon Dr. Caio Mckeon at [facility] Surgery office as out-pt if your symptoms continue. You are prescribed Levaquin for continuing antibiotics course for your pneumonia. You want to go to home today. We advise you quit your alcohol for your health. Should your symptoms return or worsen, you may present ER or call 911 for help. No Smoking: If you smoke, Please STOP! Call for help. Follow-up with: Key Bronson ARNP [Primary Care Provider] -
[2018-06-03] MEDS: LISINOPRIL 5 MG TABLET PO SCH (08:40)
[2018-06-03] MEDS: POLYETHYLENE GLYCOL 3350 17 GM PACKET PO SCH (08:41)
[2018-06-03] MEDS: FERROUS SULFATE 325 MG TABLET PO SCH (08:41)
--- NOTE | 2018-06-03 08:50 | DISCHARGE SUMMARY ---
Discharge Summary Discharge Date: 06/03/18 Discharging Provider: FRANCIS Primary Care Provider: Key Stewart Condition at Discharge: Poor Discharge Disposition: 01 Home, Self Care Discharge Facility Name: home - DIAGNOSES Admission Diagnoses: 1, acute pancreatitis 2, alcohol use 3, diarrhea 4, microcytic anemia 5, hypokalemia 6, HTN Discharge Diagnoses with Status of Each Condition: (1) Fever and chills resolved. blood culture is negative. continue Levaquin 7 days, follow up PCP. pt strongly request to be d/c in the morning. (2) Pneumonia 100 % sats on room air, no fever/chill/SOB. continue finish antibiotics course of Levaquin (3) Pancreatitis No abdominal pain, no N/V/D after treatment, Lipase is down to 110. pt tolerate regular diet. follow up GI as out-pt (4) Alcohol abuse advise pt quit alcohol (5) Acute kidney injury Impression: resolved, now is as pt's baseline. (6) HTN (hypertension) stable (7) microcytic anemia pt state he has hx of anemia, alcoholic anemia. Pt only agreed to have one unit of blood, refused to have second unit of blood. HGB is 8.0, denies dizziness, palpitation, chest pain, asymptomatic for anemia. followup PCP and hemtologist to continue management (8) diarrhea resolved, C.Diff is negative. (9) hemorrhoid Denies any pain, and refused to have home pain meds for d/c. follow up Dr. Mckeon if continue to have symptoms. pt request to be d/c home today morning - HPI History of Present Illness: pt was admitted for abdominal pain with nausea and intermittent diarrhea. In the CT of abdomen, pt had acute pancreatitis, second to pt's heaven alcohol abuse. please refer from Dr. Apodaca's HPI on 05/30/18 for more detail. - CONSULTS | PROCEDURES Consultations: Dr. Caio Mckeon Procedures: consult for hemorrhoids with rectal pain - HOSPITAL COURSE Hospital Course: pt was admitted for Nausea, abdominal pain and intermittent diarrhea. pt denies to have alcohol problem. but his reported to me pt is heavy alcoholism, "drunk lots every day." After treatment in hospital. pt has no abdominal pain. pt tolerate regular diet without nausea, vomiting or diarrhea. pt also developed fever, chill at home. pt was found to have pneumonia. pt was treated with antibiotics. blood culture is negative. After treatment, pt has no fever/chill. 100% sats on room air. pt also developed anemia without rectal GI bleeding. pt only agreed to have one unit of blood, pt had two units of blood order. After treatment pt had 8.0 HGB. pt denies any dizziness, palpitation, chest pain. pt was prescribed Levaquin for continue antibiotics course for his pneumonia. pt is happy and request to be d/c charge at the morning. - ALLERGIES Allergies/Adverse Reactions: Allergies Allergy/AdvReac Type Severity Reaction Status Date / Time amoxicillin Allergy Respiratory Verified 05/29/18 19:52 - MEDICATIONS Home Medications: Ambulatory Orders Medication Instructions Recorded Confirmed Lisinopril 10 mg PO DAILY 05/30/18 05/30/18 Sulfasalazine [Sulfasalazine Dr] 500 mg PO DAILY 05/30/18 05/30/18 dilTIAZem HCl [Diltiazem 24Hr ER] 300 mg PO DAILY 05/30/18 05/30/18 Ascorbic Acid [Vitamin C] 500 mg PO DAILY 05/31/18 05/31/18 Cholecalciferol (Vitamin D3) 1,000 unit PO DAILY 05/31/18 05/31/18 [Vitamin D3] Multivitamin [Multiple Vitamins] 1 each PO DAILY 05/31/18 05/31/18 [place]-3/Dha/Epa/Fish Oil [Fish Oil 1,000 mg PO DAILY 05/31/18 05/31/18 1,000 mg Softgel] Levofloxacin [Levaquin] 750 mg PO DAILY #7 tablet 06/03/18 - PHYSICAL EXAM AT DISCHARGE General Appearance: positive: No acute distress, Alert. negative: Lethargic Eyes Bilateral: positive: Normal inspection, PERRL, No lid inflammation, Conjunctivae nml ENT: positive: ENT inspection nml, Pharynx nml, No signs of dehydration. negative: Purulent nasal drainage, Pharyngeal erythema, Oral lesions Neck: positive: Nml inspection, Thyroid nml, No JVD, Trachea midline. negative: Thyromegaly, Lymphadenopathy (R), Lymphadenopathy (L), Stiff neck, Swelling/bruising, Tracheal deviation Respiratory: positive: Chest non-tender, No respiratory distress, Breath sounds nml. negative: Wheezes, Rales, Rhonchi Cardiovascular: positive: Regular rate & rhythm, No murmur, No gallop. negative: Irregularly irregular, Extrasystoles, Tachycardia, Bradycardia, JVD present, Systolic murmur, Diastolic murmur Peripheral Pulses: positive: 2+ Abdomen: positive: Non-tender, No organomegaly, Nml bowel sounds, No distention. negative: Tenderness, Guarding, Rebound Back: positive: Nml inspection. negative: CVA tenderness (R), CVA tenderness (L) Skin: positive: Color nml, No rash, Warm, Dry. negative: Cyanosis, Diaphoresis, Pallor Extremities: positive: Non-tender, Full ROM, Nml appearance. negative: Calf tenderness, Joint swelling, Jenn's sign/cords Neurologic/Psychiatric: positive: Motor nml, Sensation nml, Mood/affect nml. negative: Weakness, Sensory loss, Facial droop, Slurred/abnml speech, Depressed mood/affect - LABS Result Diagrams: 06/03/18 05:35 06/03/18 05:35 - FOLLOW UP Follow Up: You may followup your PCP in one week, may follow up your web marketing coordinator, and surgeon Dr. Caio Mckeon at [facility] Surgery office as out-pt if your symptoms continue. You are prescribed Levaquin for continuing antibiotics course for your pneumonia. You want to go to home today. We advise you quit your alcohol for your health. Should your symptoms return or worsen, you may present ER or call 911 for help. - TIME SPENT Time Spent in Discharge (Minutes): 50
[2018-06-03] MEDS ORDERED: VANCOMYCIN INJ 1 GM in SODIUM CHLORIDE 0.9% 250 ML IV SCH (10:00)
== END 2018-06-03 09:17 | disposition home or self-care (01) | DRG 438 ==
LOC: ED 19:39 → MS2 05-30 00:23
PROVIDERS: ADMIT Internal Medicine; ATTEND Nurse Practitioner Gerontology
DX: K85.20 Alcohol induced acute pancreatitis without necrosis or infection (principal); J18.9 Pneumonia, unspecified organism; N17.9 Acute kidney failure, unspecified; F10.10 Alcohol abuse, uncomplicated; E87.6 Hypokalemia; I48.0 Paroxysmal atrial fibrillation; I10 Essential (primary) hypertension; D64.9 Anemia, unspecified; R19.7 Diarrhea, unspecified; K64.9 Unspecified hemorrhoids; M06.9 Rheumatoid arthritis, unspecified; F17.210 Nicotine dependence, cigarettes, uncomplicated; G62.9 Polyneuropathy, unspecified; Z79.899 Other long term (current) drug therapy
CPT/HCPCS: 36415; 71045; 74177; 76705; 80053; 80202; 81001; 81003; 82150; 82272; 82977; 83010; 83540; 83690; 83735; 84100; 84466; 85025; 85044; 85610; 85651; 86140; 86850; 86900; 86901; 86920; 87040; 87045; 87046; 87086; 87493; 96361; 96374; 96376; 99284; 99285

== ENCOUNTER 2018-06-07 18:34 | Outpatient (CLI) | payer OTHER, MEDICARE | END 2018-06-07 18:35 | disposition home or self-care (01) | LOC: LAB 18:34 | PROVIDERS: ATTEND Nurse Practitioner Family | DX: D64.9 Anemia, unspecified (principal) | CPT/HCPCS: 86850; 86900; 86901 ==

== ENCOUNTER 2018-11-25 13:22 | Outpatient (CLI) | payer OTHER, MEDICARE ==
--- NOTE | 2018-11-25 15:16 | XRAY Report ---
Reason: PAIN IN RIGHT HIP Procedure Date: 11/25/2018 Accession Number: [id number] / [id number] Procedure: XR - Hip w/Pelvis 2-3V RT CPT Code: FULL RESULT: EXAM: RIGHT HIP RADIOGRAPHY EXAM DATE: 11/25/2018 02:24 PM. CLINICAL HISTORY: Pain in right hip. COMPARISON: None. TECHNIQUE: 2 views. FINDINGS: Bones: No fracture is detected. Joints: End-stage joint space loss with subchondral cyst formation and sclerosis in the right femoral acetabular joint. Moderate degenerative changes are seen in the left hip joint. Soft Tissues: Normal. No soft tissue swelling. IMPRESSION: End-stage degenerative disease of the right hip. RADIA
== END 2018-11-25 13:23 | disposition home or self-care (01) ==
LOC: DI 13:22
PROVIDERS: ATTEND Registered Nurse
DX: M16.11 Unilateral primary osteoarthritis, right hip (principal)

== ENCOUNTER 2019-02-07 08:00 | Outpatient (CLI) | payer OTHER, MEDICARE ==
[2019-02-07 13:31] LABS: BF COLOR YELLOW; BF SOURCE SYNOVIAL; CC,BF RBC 8000 /mm^3
[2019-02-07 14:04] LABS: LYMPHOCYTES %,BODY FLUID 9; MACROPHAGES %,BODY FLUID 2 %; MONOCYTES %,BODY FLUID 3 %
== END 2019-02-07 23:59 | disposition home or self-care (01) ==
LOC: LAB.R 08:00
PROVIDERS: ATTEND Orthopaedic Surgery
DX: M25.462 Effusion, left knee (principal)
CPT/HCPCS: 87070; 87205; 89051

== ENCOUNTER 2019-05-23 09:56 | Outpatient (CLI) | payer OTHER, MEDICARE | END 2019-05-23 09:57 | disposition EMS.NT | LOC: EMS 09:56 | PROVIDERS: ATTEND Surgery | DX: R42 Dizziness and giddiness (principal); R61 Generalized hyperhidrosis ==

== ENCOUNTER 2019-10-22 11:34 | Outpatient (CLI) | payer OTHER, MEDICARE ==
--- NOTE | 2019-10-22 17:10 | XRAY Report ---
Reason: COUGH Procedure Date: 10/22/2019 Accession Number: [id number] / [id number] Procedure: XR - Chest 2 View X-Ray CPT Code: 41895 Final Report FULL RESULT: EXAM: CHEST RADIOGRAPHY EXAM DATE: 10/22/2019 11:48 AM. CLINICAL HISTORY: Cough for [address] thinks it may be a combo of acid reflux and post nasal drip that is causing his throat to feel "glicky". COMPARISON: 05/31/2018 radiograph. TECHNIQUE: 2 views. FINDINGS: Lungs/Pleura: No focal opacities evident. No pleural effusion. No pneumothorax. Normal volumes. Mediastinum: Heart and mediastinal contours are unremarkable. Other: Anterior endplate spurring is in the thoracic spine. IMPRESSION: No acute findings. RADIA
== END 2019-10-22 11:35 | disposition home or self-care (01) ==
LOC: DI 11:34
PROVIDERS: ATTEND Nurse Practitioner Family
DX: R05 Cough (principal)
CPT/HCPCS: 71046

== ENCOUNTER 2020-02-14 14:52 | Outpatient (CLI) | payer OTHER, MEDICARE ==
--- NOTE | 2020-02-14 15:46 | SLEEP CARE CONSULTATION ---
Information from patient questionnaire entered by Farhana Hanson. I have reviewed and concur with the information entered by Farhana Hanson. This document represents the service I personally performed and the decisions made by me, Cely Flores ARNP. History of Present Illness Service Date and Time: 02/14/2020 1452 Reason for Visit: New patient Chief Complaint: reports: Unrefreshed sleep, Snoring, Observed pauses in breathing (has in past, doesn't think he has much problem with now), Fatigue, Frequent awakenings at night. denies: Insomnia, Excessive daytime sleepiness Duration of Symptoms: 4-5 years Usual bedtime: 10-10:30 pm Time it takes to fall asleep: 10 mins Snores at night: Yes Observed to quit breathing while asleep: Yes Sleeps alone due to snoring: Yes Number of times waking at night: 2-3, sometimes every 2 hours Reasons for waking at night: reports: Pain (RA pain in joints), Bathroom. denies: Choking, Snoring, Gasping for air Toss, Turn, or Twitch while sleeping: Yes Recalls having dreams: Yes Usually gets out of bed at: 6-6:30 am Feels refreshed in the morning: No Morning headache: No Sleepy or fatigued during the day: Yes (occasionally) Ever fallen asleep while driving: No Takes day naps: No Dreams during day naps: No Prior sleep studies: No - Parasomnia Symptoms Ever been unable to move upon waking from sleep: No Walks in sleep: No Talks in sleep: Yes (when dreaming) Ever acted out dreams in sleep: Yes Ever felt weak in the knees when startled or emotional: No Bothered by creepy, crawly, restless sensations in legs: No Problems with memory or concentration: No Subjective Initial [place] Sleepiness Scale score: 3 (in 2020) Past Medical History Past Medical History: reports: Hypertension (on lisinopril), Arthritis (RA, 9 years), Arrythmia (A fib), Anemia (ongoing last 4-5 years), Other (A-FIB, Rheumatoid Arthritis). 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 Patient is and lives in [place]. Have you smoked in the past 12 months: Yes (using E-cig) Years of smokin Quit date: 2 years ago - 2017 Alcohol use: Yes Alcohol amount and frequency: 5 drinks daily Caffeine use: Yes Caffeine amount and frequency: 2-3 times/weekly Family History Family history of sleep disordered breathing: No Allergies and Home Medications Drug allergies reviewed: Yes (amoxicillin) Home medication list reviewed: Yes (prednisone, lisinopril, celecoxib (afib), ASA) Review of Systems Weight gain over past 5 years: 13 lbs Weight loss over past 5 years: 30 Cardiovascular: reports: high blood pressure, irregular heart rate or pulse, leg or foot swelling. denies: palpitations, chest pain, have to sleep sitting up Respiratory: reports: chronic cough. denies: shortness of breath, wheeze Gastrointestinal: reports: difficulty swallowing (affected dry throat). denies: heartburn, abdominal pain Urinary: reports: frequency. denies: incontinence, urgency, impotence Neurological: denies: headaches, head trauma, disorientation, speech dysfunction, gait or balance problems Psychiatric: denies: anxiety, depression, mood disorder Ear/Nose/Throat: reports: nasal congestion, sinus problems, dry mouth/throat (throat), wisdom teeth removed (has dentures). denies: nose bleeds, hoarseness, injury to nose, tonsillectomy Musculoskeletal: reports: joint pain (RA), back pain, joint swelling, muscle pain or cramping, mobility problems Immunologic: reports: sneezing, allergies to food or environment Physical Exam Heart Rate: 109 O2 Saturation: 94 Height: 6 ft 3 in Weight: 225 lb Body Mass Index: 28.1 BMI Classification: Overweight Neck circumference: 16.5 (inches) Nasal exam: negative: erythema, excoriation, scabs, blood tinged nasal secretions, other HEENT: No craniofacial malformation Nostrils: patent to airflow Turbinates: normal Septum: midline Mouth and throat: normal Soft palate: normal Hard palate: normal Uvula: normal Uvula visualization: 50% Mallampati Class II Tongue: normal in size Tonsils: 1+ Chin and jaw: normal size and position Neck: normal w/o lymphadenopathy or thyromegaly Heart: irregular rhythm Lungs: clear bilaterally Impression and Plan 1. Suspected Obstructive Sleep Apnea-Hypopnea Syndrome, as suggested by a history of loud and irregular snoring, observed cessation of breath while asleep, frequent awakening during the night, and unrefreshed sleep. Excess weight is a common predisposing factors for obstructive sleep apnea-hypopnea syndrome. I recommend proceeding to polysomnography to confirm the diagnosis and to assess severity. I informed the patient of what the sleep studies involve and after some discussion, obtained agreement to proceed. The pathophysiology of obstructive sleep apnea-hypopnea syndrome was discussed with the patient and health risks of cardiovascular and cerebrovascular disease if not treated. AASM brochure for obstructive sleep apnea-hypopnea syndrome given and reviewed. * Schedule polysomnography and return in 1-2 weeks after the study to discuss result and initiate therapy. * Avoid long distance driving or driving when feeling sleepy. * Avoid alcohol, sedative and muscle relaxant around bedtime. * Attempt to lose weight. * Review instructions provided by trained office staff on how to prepare for the sleep study. * Return for follow-up after sleep study completed. Time Spent with Patient (minutes): 32
== END 2020-02-14 14:53 | disposition home or self-care (01) ==
LOC: SC 14:52
PROVIDERS: ATTEND Nurse Practitioner Family
DX: R06.81 Apnea, not elsewhere classified (principal); G47.8 Other sleep disorders; R06.83 Snoring; E66.3 Overweight; Z68.28 Body mass index [BMI] 28.0-28.9, adult
CPT/HCPCS: 99204; 99212

== ENCOUNTER → 2020-03-09 | Outpatient (CLI) | payer OTHER, MEDICARE | LOC: SC 19:30 | PROVIDERS: ATTEND Internal Medicine Pulmonary Disease | DX: G47.33 Obstructive sleep apnea (adult) (pediatric) (principal); E66.3 Overweight; Z68.28 Body mass index [BMI] 28.0-28.9, adult | CPT/HCPCS: 95806 ==

== ENCOUNTER 2020-03-12 08:00 | Outpatient (CLI) | payer OTHER, MEDICARE | END 2020-03-12 23:59 | disposition home or self-care (01) | LOC: LAB.R 08:00 | PROVIDERS: ATTEND Physician Assistant | DX: Z20.828 Contact with and (suspected) exposure to other viral communicable diseases (principal) ==

== ENCOUNTER 2020-03-17 08:38 | Outpatient (CLI) | payer OTHER, MEDICARE | END 2020-03-17 08:39 | disposition EMS.NT | LOC: EMS 08:38 | PROVIDERS: ATTEND Surgery | DX: Z03.89 Encounter for observation for other suspected diseases and conditions ruled out (principal) ==

== ENCOUNTER 2020-03-26 09:10 | Outpatient (CLI) | payer OTHER, MEDICARE ==
--- NOTE | 2020-03-26 08:30 | SLEEP CARE CONSULTATION ---
Information from patient questionnaire entered by Farhana Hanson. I have reviewed and concur with the information entered by Farhana Hanson. This document represents the service I personally performed and the decisions made by , Cely Flores ARNP. History of Present Illness Service Date and Time: 03/26/2020 0800 Initial [place] Sleepiness Scale score: 3 (in 2019) Additional HPI information: CARRIE MOORE returns for follow up and results of the recently performed home sleep study. He has mild obstructive sleep apnea with minimal hypoxia. He also show some bradycardia and tachycardia of which he has a history with hypertension. I explained the pathophysiology behind obstructive sleep apnea. We then spent quite a bit of time discussing different treatment options. For mild obstructive sleep apnea, surgery and oral appliance are alternatives to nasal CPAP therapy but in moderate or severe cases, nasal CPAP is the most effective and reliable treatment. Because apnea is primarily in supine position, then positional management therapy could be effective. Methods discussed such as positioning with pillows, using a T-shirt with tennis balls in the back, and shown commercial products that have a pillow format on back to prevent supine sleep. I reviewed the impact of weight changes on sleep apnea and strongly recommended losing weight. Patient counseled not drink alcohol less than 4 hours before bedtime as it can increase snoring and apnea. Patient was cautioned about risks of drowsy driving until sleepiness symptoms resolve. Sleep Study - Results Type of Sleep Study: Home sleep study Prior sleep studies: No Polysomnography/Home Sleep Study results: SLEEP TIME AND EFFICIENCY: The sleep study recording began at 10:27:25 PM and ended at 08:12:06 AM. Total recording time was 584.7 minutes. The total sleep time was 529.0 minutes. The sleep efficiency was 90.5 percent. The patient spent 293.1 minutes supine, and spent 235.9 minutes non-supine. The patients own estimate of sleep time was 9.70 hours. RESPIRATORY DATA: The AHI in this report is indexed to sleep time based on actigraphy. The AASM defines this as FLORY. The AHI on this type 3 Home Sleep Study may understate the AHI determined on a type 1 or 2 study, since EEG is not monitored resulting in the inability to score non-desaturating hypopneas. Based on 4% Calculation: The AHI4% calculation of 5.3 per hour of recording time was based on a total of 34 scored apneas and 13 scored hypopneas with 4% desaturations. Supine AHI4%: 8.0 per hour. Non-supine AHI4%: 2.0 per hour. Oxygen Summary: Patient's baseline O2 saturation was 94.7 %. The patient spent 2.2 minutes at an oxygen saturation less than 90%, and 0.7 minutes less than 85%. The desaturation index was 2.3 events per hour sleep time. The lowest saturation was 73.8 %. SNORING: The percent of the study time spent snoring was 88.3 %. The Snoring Count was 9926 . The Snoring Index was 1125.8 . PULSE RATE REVIEW: The mean heart rate was 68 beats per minute. The rate ranged from a low of 22 to a high of 116 beats per minute. DIAGNOSIS CODE: This patient has mild obstructive sleep apnea (ICD-10 G47.33) occurring almost exclusively during supine sleep. Minimal hypoxia. Bradycardia and tachycardia. Frequent heart rate variation. Allergies and Home Medications Drug allergies reviewed: Yes (amoxicillin) Home medication list reviewed: Yes (no changes) Review of Systems Review of systems same as previous: Yes (no changes) Physical Exam Vital signs obtained and entered by: Telemed visit Height: 6 ft 3 in Impression and Plan 1. Obstructive Sleep Apnea-Hypopnea Syndrome, mild, with lowest oxygen saturation of 73.8%. Obviously this is the cause of the patients symptoms of unrefreshed sleep, and excessive daytime sleepiness. Positive pressure therapy could benefit hypertension and arrhythmia. I did strongly encouraged use of CPAP therapy due to his hypertension and arrhythmia. He does have mild apnea with AHI of 5.3 that was 8.0 supine and 2.0 non-supine. Since patients apnea is primarily in supine position, I discussed with patient that positional therapy could be effective and he decided he would like to start with this plan. He is also advised to lose weight as this will reduce snoring and apnea. An oral appliance can also be used for snoring but often is not covered by insurance. He also states he will check with his dentist to see if he is certified for these oral appliances. He may come in to get list of accredited dentists in the area if he decides to seek evaluation for this treatment. Follow up is scheduled for one month to check effectiveness and if further evaluation indicated. * Positional therapy. * Attempt to lose weight. * Avoid alcohol consumption near bedtime. * The patient is again cautioned about driving until sleepiness completely resolves. * Return in one month. I will assess response to therapy at that time. Visit Type: Telehealth Phone Patient Location: Home Location of Provider: Office Patient agrees and consents to this telehealth visit type: Yes Patient agrees to have their insurance billed: Yes Time Spent with Patient (minutes): 10 Provider Statement: I spent 100% of the Telehealth Phone Call with the patient with greater than 50% spent counseling the patient and coordination of care.
== END 2020-03-26 09:11 | disposition home or self-care (01) ==
LOC: SC 09:10
PROVIDERS: ATTEND Nurse Practitioner Family
DX: G47.33 Obstructive sleep apnea (adult) (pediatric) (principal)

== ENCOUNTER 2020-04-26 15:15 | Inpatient (IN) | payer OTHER, MEDICARE ==
[2020-04-26] MEDS ORDERED: HYDROmorphone 0.5 MG/0.5 ML SYRINGE IVP STA (16:10)
[2020-04-26] MEDS ORDERED: DILTIAZEM 50 MG/10 ML VIAL IVP ONE (16:10)
--- NOTE | 2020-04-26 16:17 | ED Physician Documentation ---
PD HPI ABD PAIN - Stated complaint Stated Complaint: ABD PX - Chief complaint Chief Complaint: Abd Pain - History obtained from History obtained from: Patient - History of Present Illness Timing - onset: How many weeks ago (1) Timing - duration: Weeks (1) Timing - details: Gradual onset Pain level max: 9 Pain level now: 9 Quality: Aching, Pain Location: Epigastric Radiation: No: Chest, , Lower back, Left flank, Left shoulder, Right flank, Right shoulder, Upper back Improved by: Other (Nothing) Worsened by: Eating, Moving Associated symptoms: Nausea. No: Fever, Vomiting, Hematemesis, Diarrhea, Constipation, Melena, Hematochezia, Dysuria, Hematuria Similar symptoms before: Has not had sx before Recently seen: Other (Patient sent here from the walk-in clinic.) Review of Systems Ten Systems: 10 systems reviewed and negative Constitutional: denies: Fever, Chills Nose: denies: Rhinorrhea / runny nose, Congestion Throat: denies: Sore throat Cardiac: denies: Chest pain / pressure Respiratory: denies: Cough GI: reports: Nausea. denies: Vomiting, Diarrhea Skin: denies: Rash Musculoskeletal: denies: Neck pain, Back pain Neurologic: denies: Focal weakness, Numbness, Confused, Headache PD PAST MEDICAL HISTORY - Past Medical History Past Medical History: Yes Cardiovascular: Hypertension, Atrial fibrillation Respiratory: None Neuro: Peripheral neuropathy Endocrine/Autoimmune: None GI: None : None HEENT: None Psych: None Musculoskeletal: Rheumatoid arthritis Derm: None - Past Surgical History Past Surgical History: Yes General: Hiatal hernia repair, Other - Present Medications Home Medications: Ambulatory Orders Medication Instructions Recorded Confirmed Sulfasalazine [Sulfasalazine Dr] 500 mg PO DAILY 05/30/18 06/08/18 dilTIAZem HCl [Diltiazem 24Hr ER 300 mg PO DAILY 05/30/18 06/08/18 (Cd)] lisinopriL [Lisinopril] 10 mg PO DAILY 05/30/18 06/08/18 Ascorbic Acid [Vitamin C] 500 mg PO DAILY 05/31/18 06/08/18 Cholecalciferol (Vitamin D3) 1,000 unit PO DAILY 05/31/18 06/08/18 [Vitamin D3] Multivitamin [Multiple Vitamins] 1 each PO DAILY 05/31/18 06/08/18 [place]-3/Dha/Epa/Fish Oil [Fish Oil 1,000 mg PO DAILY 05/31/18 06/08/18 1,000 mg Softgel] Levofloxacin [Levaquin] 750 mg PO DAILY #7 tablet 06/03/18 06/08/18 - Allergies Allergies/Adverse Reactions: Allergies Allergy/AdvReac Type Severity Reaction Status Date / Time amoxicillin Allergy Respiratory Verified 04/26/20 15:31 - Social History Does the pt smoke?: Yes Smoking Status: Current every day smoker Does the pt drink ETOH?: Yes ETOH Use: Liquor Does the pt have substance abuse?: No Substance Use and Type: Marijuana - Immunizations Immunizations are current?: Yes PD ED PE NORMAL - Vitals Vital signs reviewed: Yes - General General: Alert and oriented X 3, No acute distress - HEENT HEENT: Moist mucous membranes - Neck Neck: Supple, no meningeal sign - Cardiac Cardiac: RRR - Respiratory Respiratory: No respiratory distress, Clear bilaterally - Abdomen Abdomen: Soft, Non distended, Other (Diffusely tender to palpation. Positive guarding and rebound. Seems to be most tender in the epigastrium and right lower quadrant) - Derm Derm: Warm and dry - Neuro Neuro: Alert and oriented X 3 - Psych Psych: Normal mood, Normal affect Results - Vitals Vitals: Vital Signs - 24 hr 04/26/20 04/26/20 04/26/20 15:31 16:10 16:27 Temperature 37.6 C H Heart Rate 85 144 H 145 H Respiratory 16 20 18 Rate Blood Pressure 115/79 126/93 H 130/92 H O2 Saturation 99 100 100 04/26/20 04/26/20 04/26/20 16:34 16:43 17:05 Temperature Heart Rate 111 H 124 H 137 H Respiratory 18 13 20 Rate Blood Pressure 131/82 H 130/72 146/102 H O2 Saturation 99 100 99 04/26/20 04/26/20 04/26/20 17:44 18:08 18:21 Temperature 37.7 C H Heart Rate 138 H 156 H 135 H Respiratory 22 17 23 Rate Blood Pressure 145/120 H 141/105 H 139/105 H O2 Saturation 100 96 99 04/26/20 04/26/20 18:30 19:21 Temperature Heart Rate 148 H 149 H Respiratory 15 20 Rate Blood Pressure 143/106 H 134/97 H O2 Saturation 100 100 Oxygen O2 Source Room air - EKG (time done) 1542 Rate: Rate (enter#) (161) Rhythm: Atrial fibrillation (w/ RVR) [place]: Normal QRS: Normal Ischemia: Non specific changes - Labs Labs: Laboratory Tests 04/26/20 04/26/20 04/26/20 16:35 16:35 16:35 WBC 18.6 H RBC 4.82 Hgb 11.4 L Hct 35.3 L MCV 73.2 L MCH 23.7 L MCHC 32.3 RDW 16.8 H Plt Count 263 MPV 9.4 Neut # (Auto) 14.0 H Lymph # (Auto) 2.5 [place] # (Auto) 1.6 H Eos # (Auto) 0.2 Baso # (Auto) 0.1 Absolute Nucleated RBC 0.00 Band Neuts % (Manual) Not Reportable Abnorm Lymph % (Manual) Not Reportable Nucleated RBC % 0.0 Neutrophils # (Manual) Not Reportable Lymphocytes # (Manual) Not Reportable Monocytes # (Manual) Not Reportable Eosinophils # (Manual) Not Reportable Basophils # (Manual) Not Reportable Differential Comment MANUAL=AUTO DIFF Manual Slide Review Indicated Platelet Estimate NORMAL (130-450,000) Platelet Morphology NORMAL APPEARANCE RBC Morph Micro Appear NORMAL APPEARANCE Sodium 131 L Potassium 4.3 Chloride 97 L Carbon Dioxide 23 Anion Gap 11.0 BUN 14 Creatinine 1.0 Estimated GFR (MDRD) 92 Glucose 113 H Calcium 8.8 Total Bilirubin 1.6 H AST 10 ALT 12 Alkaline Phosphatase 74 Total Protein 6.7 Albumin 2.8 L Globulin 3.9 Albumin/Globulin Ratio 0.7 L Lipase 53 H Urine Color Urine Clarity Urine pH Ur Specific [place] Urine Protein Urine Glucose (UA) Urine Ketones Urine Occult Blood Urine Nitrite Urine Bilirubin Urine Urobilinogen Ur Leukocyte Esterase Ur Microscopic Review Urine Culture Comments Ethyl Alcohol < 5.0 04/26/20 17:15 WBC RBC Hgb Hct MCV MCH MCHC RDW Plt Count MPV Neut # (Auto) Lymph # (Auto) [place] # (Auto) Eos # (Auto) Baso # (Auto) Absolute Nucleated RBC Band Neuts % (Manual) Abnorm Lymph % (Manual) Nucleated RBC % Neutrophils # (Manual) Lymphocytes # (Manual) Monocytes # (Manual) Eosinophils # (Manual) Basophils # (Manual) Differential Comment Manual Slide Review Platelet Estimate Platelet Morphology RBC Morph Micro Appear Sodium Potassium Chloride Carbon Dioxide Anion Gap BUN Creatinine Estimated GFR (MDRD) Glucose Calcium Total Bilirubin AST ALT Alkaline Phosphatase Total Protein Albumin Globulin Albumin/Globulin Ratio Lipase Urine Color DARK YELLOW Urine Clarity CLEAR Urine pH 6.0 Ur Specific [place] 1.025 Urine Protein TRACE Urine Glucose (UA) NEGATIVE Urine Ketones 15 H Urine Occult Blood NEGATIVE Urine Nitrite NEGATIVE Urine Bilirubin NEGATIVE Urine Urobilinogen 1 (NORMAL) Ur Leukocyte Esterase NEGATIVE Ur Microscopic Review NOT INDICATED Urine Culture Comments NOT INDICATED Ethyl Alcohol - Rads (name of study) CT abd pelvis Radiology: Prelim report reviewed, EMP read contemporaneously, See rad report PD MEDICAL DECISION MAKING - ED course Complexity details: reviewed results, re-evaluated patient, considered differential, d/w patient, d/w systems development consultant ED course: Patient is a 60-year-old male who presents the emergency department abdominal pain. Appears to have pancreatitis, likely alcoholic in nature. He is also found to be in atrial fibrillation with rapid ventricular response. Rate was not controlled with IV diltiazem, therefore was started on diltiazem drip. Pain was controlled with Dilaudid. Discussed the abnormal CT scan with Dr. Simmons, surgery who will consult in the morning. Discussed the case with Dr. Matos who accepts. This document was made in part using voice recognition software. While efforts are made to proofread this document, sound alike and grammatical errors may occur. Departure - Departure Disposition: 66 [facility] DC/Xfer Clinical Impression: Atrial fibrillation with RVR, Alcohol abuse Pancreatitis, acute Qualifiers: Pancreatitis type: unspecified pancreatitis type Acute pancreatitis complication: unspecified Qualified Code(s): K85.90 - Acute pancreatitis without necrosis or infection, unspecified Condition: Stable Discharge Date/Time: 04/26/20 20:25
[2020-04-26 16:43] LABS: BASOPHILS # (AUTO) 0.1 10^3/uL (0.0-0.1); BASOPHILS % (AUTO) 0.4 %; EOSINOPHILS # (AUTO) 0.2 10^3/uL (0.0-0.7); EOSINOPHILS % (AUTO) 1.1 %; HGB - HEMOGLOBIN 11.4 g/dL (14.0-18.0); LYMPHOCYTES # (AUTO) 2.5 10^3/uL (1.5-3.5); LYMPHOCYTES % (AUTO) 13.4 %; MEAN CORPUSCULAR HEMOGLOBIN 23.7 pg (27.0-31.0); MEAN CORPUSCULAR HGB CONC 32.3 g/dL (32.0-36.0); MEAN CORPUSCULAR VOLUME 73.2 fL (80.0-94.0); MEAN PLATELET VOLUME 9.4 fL (7.4-11.4); MONOCYTES # (AUTO) 1.6 10^3/uL (0.0-1.0); MONOCYTES % (AUTO) 8.8 %; NEUTROPHILS % (AUTO) 75.3 %; PLT - PLATELET COUNT 263 10^3/uL (130-450); RED BLOOD COUNT 4.82 10^6/uL (4.70-6.10); RED CELL DISTRIBUTION WIDTH 16.8 % (12.0-15.0); WHITE BLOOD COUNT 18.6 x10^3/uL (4.8-10.8)
[2020-04-26 16:54] LABS: ALBUMIN 2.8 g/dL (3.2-5.5); ALBUMIN/GLOBULIN RATIO 0.7 (1.0-2.2); BILIRUBIN,TOTAL 1.6 mg/dL (0.2-1.0); CALCIUM 8.8 mg/dL (8.5-10.3); TOTAL PROTEIN 6.7 g/dL (6.7-8.2)
[2020-04-26] MEDS ORDERED: IOVERSOL 320 100 ML VIAL IVP ONE ×2 (17:05→19:43)
[2020-04-26 17:12] LABS: DIFFERENTIAL COMMENT MANUAL=AUTO DIFF; PLATELET ESTIMATE, MANUAL NORMAL (130-450,000) (NORMAL); PLATELET MORPHOLOGY NORMAL APPEARANCE (NORMAL); RBC MORPHOLOGY (MULTIPLE) NORMAL APPEARANCE (NORMAL)
[2020-04-26 17:26] LABS: GLUCOSE, URINE (UA) NEGATIVE (NEGATIVE); KETONES,URINE (UA) 15 mg/dL (NEGATIVE); LEUKOCYTE ESTERASE, URINE NEGATIVE (NEGATIVE); NITRITE,URINE NEGATIVE (NEGATIVE); OCCULT BLOOD,URINE NEGATIVE (NEGATIVE); PROTEIN,URINE TRACE mg/dL (NEGATIVE); UROBILINOGEN,URINE 1 (NORMAL) E.U./dL (NORMAL)
[2020-04-26 17:50] LABS: BILIRUBIN,URINE NEGATIVE (NEGATIVE); ICTOTEST,URINE NEGATIVE
[2020-04-26 17:51] LABS: CLARITY,URINE CLEAR (CLEAR)
[2020-04-26] MEDS ORDERED: DILTIAZEM 125 MG in DEXTROSE 5% 100 ML IV STA (17:53)
--- NOTE | 2020-04-26 18:01 | CT Report ---
PROCEDURE: Abdomen/Pelvis W INDICATIONS: RLQ abd pain CONTRAST: IV CONTRAST: Optiray 320 ml: 100 PO CONTRAST: *NO PO CONTRAST TECHNIQUE: After the administration of nonionic IV contrast, 5 mm thick sections acquired from the diaphragms to the symphysis. 5 mm thick coronal and sagittal reformats were acquired. For radiation dose reducti on, the following was used: automated exposure control, adjustment of mA and/or kV according to vida ent size. COMPARISON: Abdomen and pelvis CT 05/21/2018 FINDINGS: Image quality: Excellent. ABDOMEN: Lung bases: Lung bases are clear. Heart size is normal. Solid organs: Liver and spleen are normal in size and enhancement. Gallbladder wall does not appear thickened. Biliary system is non dilated. Pancreas enhances normally. There is a mild amount of inflammatory change seen surrounding the pancreas, which is improved compared to the prior examinatio n. No adrenal nodules. Kidneys demonstrate normal size and enhancement, without hydronephrosis. Peritoneum and bowel: In this patient with this given history, scrutiny is given to the appendix and the right lower quadrant. The appendix appears normal, as on series 6 image 34 and on series 3 image 56. No focal right lower quadrant inflammatory changes are seen. Bowel loops demonstrate normal wall thickness and caliber. No free air is seen. There is a mild amou nt of free fluid seen layering within the pelvis. There is generalized inflammatory change seen withi n the central mesentery. Nodes and vessels: No retroperitoneal or mesenteric adenopathy by size criteria. Aorta and inferior vena cava are normal in size. Miscellaneous: No ventral hernias. PELVIS: Genitourinary: Bladder wall thickness is normal. Miscellaneous: No inguinal hernias or adenopathy. Bones: No suspicious bony lesions. No vertebral body compression fractures. Mild levoconvex scolio tic curvature is seen. Transitional lumbar anatomy is seen, with a partially sacralized L5 level, l eft worse than right. Advanced right hip degenerative changes are seen, with prominent disc space dontae rowing with associated subchondral sclerosis and irregularity with prominent osteophyte formation and subchondral geode formation. Milder degenerative changes are seen elsewhere. IMPRESSION: Normal appendix. A mild amount of inflammatory changes seen surrounding the pancreas, which may be related to pancreat itis. This is improved compared to 2018. Please correlate with patient presentation and laboratory va lues. Generalized inflammatory change can be seen within the midportion of the mesentery, with fatty strand ing. This is most typically idiopathic and related to chronic inflammation. This is new compared to 2 018. A mild amount of free fluid is seen layering within the pelvis, which is always abnormal for a male. Incidental note is made of: Levoconvex scoliotic curvature Partially sacralized L5, left worse than right. Advanced right hip degenerative change Reviewed by: Jose G Wells MD on 04/26/2020 5:00 PM AKANGEL LUIS Approved by: Jose G Wells MD on 04/26/2020 5:00 PM AKANGEL LUIS Station ID: [id number]
[2020-04-26] MEDS ORDERED: HYDROmorphone 1 MG/ML CARPUJECT IVP STA ×2 (19:03→19:33)
[2020-04-26] MEDS ORDERED: SODIUM CHLORIDE 0.9% 1,000 ML IV STA (19:33)
[2020-04-26] MEDS ORDERED: ONDANSETRON 4 MG/2 ML VIAL IVP PRN (19:40)
[2020-04-26] MEDS ORDERED: MAGNESIUM SULFATE 2 GRAM 2 GM/50 ML BAG IV ONE (19:45)
[2020-04-26] MEDS ORDERED: LORazepam 2 MG/ML VIAL IVP PRN (19:45)
--- NOTE | 2020-04-26 19:50 | HISTORY & PHYSICAL EXAMINATION ---
Chief Complaint - Chief Complaint Chief Complaint: Irregularly irregular rhythm, abdominal pain History of Present Illness - Admitted From Admitted From:: [facility] ED - History Obtained From Records Reviewed: Yes History obtained from: Patient - History of Present Illness HPI Comment/Other: Patient is a 60-year-old male with history of atrial fibrillation, rheumatoid arthritis and alcohol abuse who presented to the ED with complaint of epigastric pain. This started 4 days ago. He described it as an ache with occasional sharpness. He rated the pain 5 out of 10 currently. At onset it was 10 out of 10 scale. There is no radiation of the pain. He has been having chills and a low-grade fever. He denied dyspnea, chest pain, nausea or vomiting. As a result of the pain he has not been taking anything by mouth. As a result he has not been taking his medications which included diltiazem. He just attempted taking it yesterday. As a result upon presentation he was in an irregularly irregular rhythm with a heart rate as high as the 170s. He was started on diltiazem drip in the emergency room and presented for admission. Work-up in the ED included a CT of the abdomen pelvis which showed pancreatitis with some peripancreatic edema. It also reported some free fluid in the pelvic floor. History - Past Medical History Cardiovascular: reports: Hypertension, Atrial fibrillation Respiratory: reports: None Neuro: reports: Peripheral neuropathy Endocrine/Autoimmune: reports: None GI: reports: None : reports: None HEENT: reports: None Psych: reports: None Musculoskeletal: reports: Rheumatoid arthritis Derm: reports: None MRSA Hx?: No - Past Surgical History General: reports: Hiatal hernia repair, Other Ortho: reports: Other (Left foot/ankle surgery due to flatfoot) - Family & Social History Family History Comment/Other: Patient denies any significant family history. Living arrangement: At home Social History Notes: Patient drinks alcohol daily. He uses an e-cigarette and occasionally smokes marijuana. - POLST Patient has POLST: No POLST Status: Full Code Meds/Allgy - Home Medications Home Medications: Ambulatory Orders Medication Instructions Recorded Confirmed Sulfasalazine [Sulfasalazine Dr] 500 mg PO DAILY 05/30/18 06/08/18 dilTIAZem HCl [Diltiazem 24Hr ER 300 mg PO DAILY 05/30/18 06/08/18 (Cd)] lisinopriL [Lisinopril] 10 mg PO DAILY 05/30/18 06/08/18 Ascorbic Acid [Vitamin C] 500 mg PO DAILY 05/31/18 06/08/18 Cholecalciferol (Vitamin D3) 1,000 unit PO DAILY 05/31/18 06/08/18 [Vitamin D3] Multivitamin [Multiple Vitamins] 1 each PO DAILY 05/31/18 06/08/18 [place]-3/Dha/Epa/Fish Oil [Fish Oil 1,000 mg PO DAILY 05/31/18 06/08/18 1,000 mg Softgel] Levofloxacin [Levaquin] 750 mg PO DAILY #7 tablet 06/03/18 06/08/18 - Allergies Allergies/Adverse Reactions: Allergies Allergy/AdvReac Type Severity Reaction Status Date / Time amoxicillin Allergy Respiratory Verified 04/26/20 15:31 Review of Systems - Constitutional Constitutional: reports: Fever - Eyes Eyes: denies: Pain - Ears, Nose & Throat Ears, Nose & Throat: denies: Ear pain - Cardiovascular Cariovascular: reports: Irregular heart rate. denies: Palpitations, Chest pain, Edema, Lightheadedness, Syncope, Exertional dyspnea - Respiratory Respiratory: denies: Cough, Sputum production, Wheezing, SOB at rest, SOB with exertion - Gastrointestinal Gastrointestinal: reports: Abdominal pain. denies: Abdominal distention, Constipation, Diarrhea, Nausea, Vomiting - Genitourinary Genitourinary: denies: Dysuria, Frequency, Urgency, Hematuria - Musculoskeletal Musculoskeletal: denies: Muscle pain, Back pain - Integumentary Integumentary: denies: Rash, Pruritis, Lesions - Neurological Neurological: denies: General weakness, Focal weakness, Headache, Dizziness - Psychiatric Psychiatric: denies: Depression, Anxiety - Endocrine Endocrine: denies: Polyuria, Polydypsia - Hematologic/Lymphatic Hematologic/Lymphatic: denies: Anemia, Bruising, Petechiae Prior Level of Functionality: Patient is independent of activities of daily living He has been using crutches for the past 6 weeks since surgery to his left foot/ankle Exam - Vital Signs Vital Signs: Vital Signs x48h Temp Pulse Resp BP Pulse Ox 04/26/20 19:21 149 H 20 134/97 H 100 04/26/20 18:30 148 H 15 143/106 H 100 04/26/20 18:21 135 H 23 139/105 H 99 04/26/20 18:08 156 H 17 141/105 H 96 04/26/20 17:44 37.7 C H 138 H 22 145/120 H 100 04/26/20 17:05 137 H 20 146/102 H 99 04/26/20 16:43 124 H 13 130/72 100 04/26/20 16:34 111 H 18 131/82 H 99 04/26/20 16:27 145 H 18 130/92 H 04/26/20 16:10 144 H 20 126/93 H 100 04/26/20 15:31 37.6 C H 85 16 115/79 99 - Physical Exam General Appearance: positive: Alert, Moderate distress, Severe distress Eyes Bilateral: positive: PERRL, EOMI ENT: positive: No signs of dehydration Neck: positive: No JVD, Trachea midline Respiratory: positive: Chest non-tender, No respiratory distress, Breath sounds nml. negative: Wheezes, Rales, Rhonchi Cardiovascular: positive: Irregularly irregular, Tachycardia Abdomen: positive: Nml bowel sounds, Tenderness. negative: Rebound Back: positive: Nml inspection Skin: positive: Color nml, No rash, Warm, Dry Extremities: positive: Non-tender, Full ROM, Nml appearance, No pedal edema Neurologic/Psychiatric: positive: Oriented x3, Mood/affect nml Conclusion/Plan - Problem List (1) Atrial fibrillation with RVR Conclusion/Plan: Patient has atrial fibrillation but has not been taking his medications for a few days due to abdominal pain. Patient was started on diltiazem IV in the emergency department. We will continue diltiazem drip. Will resume oral diltiazem when patient able to tolerate p.o. medications. (2) Pancreatitis, acute Conclusion/Plan: Likely secondary to alcohol abuse. Will also check lipid panel Patient made n.p.o. Receiving IV hydration with normal saline at 125 mils per hour. Pain management PRN. We will treat nausea prn with Zofran. Qualifiers: Pancreatitis type: unspecified pancreatitis type Acute pancreatitis complication: unspecified Qualified Code(s): K85.90 - Acute pancreatitis without necrosis or infection, unspecified (3) Alcohol abuse Conclusion/Plan: CIWA protocol ordered. (4) Leukocytosis Conclusion/Plan: Reactive versus infectious. Patient's WBC was 18.6. Patient has a low-grade fever. Blood cultures drawn. Will check lactic acid We will start empiric antibiotic with Cipro and flagviolet General Surgery (Dr Simmons) was contacted by the ED regarding free fluid in the pelvic floor. He was agreeable to see the patient in the morning (5) HTN (hypertension) Conclusion/Plan: Patient is on lisinopril and diltiazem. Will resume when patient able to tolerate oral medications. (6) Rheumatoid arthritis Conclusion/Plan: We will hold sulfasalazine in light of leukocytosis and fever until infection is ruled out or treated. - Lab Results Fish Bones: 04/26/20 16:35 04/26/20 19:58 Core Measures - Anticipated LOS I expect patient to be DC'd or transferred within 96 hours.: Yes - DVT/VTE - Prophylaxis VTE/DVT Device ordered at admit?: Yes
[2020-04-26 20:17] LABS: ALBUMIN/GLOBULIN RATIO 0.8 (1.0-2.2); BILIRUBIN,TOTAL 1.7 mg/dL (0.2-1.0); CALCIUM 8.8 mg/dL (8.5-10.3); TOTAL PROTEIN 6.7 g/dL (6.7-8.2)
[2020-04-26] MEDS: DILTIAZEM 125 MG in DEXTROSE 5% 100 ML IV SCH (20:40)
[2020-04-26] MEDS: SODIUM CHLORIDE FLUSH 0.9% 10 ML SYRINGE IVP PRN (20:45)
[2020-04-26] MEDS: SODIUM CHLORIDE 0.9% 1,000 ML IV SCH (20:45)
[2020-04-26] MEDS: SODIUM CHLORIDE FLUSH 0.9% 10 ML SYRINGE IVP SCH (20:57)
[2020-04-26] MEDS: CIPROFLOXACIN 400 MG/200 ML 400 MG/200 ML BAG IV SCH (21:27)
[2020-04-26] MEDS: metroNIDAZOLE 500 MG/100 ML 500 MG/100 ML BAG IV SCH (22:07)
[2020-04-27] MEDS: HYDROmorphone 0.5 MG/0.5 ML SYRINGE IVP PRN ×8 (02:09→23:46)
[2020-04-27] MEDS: SODIUM CHLORIDE FLUSH 0.9% 10 ML SYRINGE IVP PRN ×3 (03:52→19:39)
[2020-04-27] MEDS: DILTIAZEM 125 MG in DEXTROSE 5% 100 ML IV SCH (03:54)
[2020-04-27] MEDS: metroNIDAZOLE 500 MG/100 ML 500 MG/100 ML BAG IV SCH ×3 (04:26→21:23)
[2020-04-27 05:10] LABS: BASOPHILS # (AUTO) 0.1 10^3/uL (0.0-0.1); BASOPHILS % (AUTO) 0.5 %; EOSINOPHILS # (AUTO) 0.4 10^3/uL (0.0-0.7); EOSINOPHILS % (AUTO) 2.1 %; HGB - HEMOGLOBIN 10.7 g/dL (14.0-18.0); LYMPHOCYTES # (AUTO) 2.1 10^3/uL (1.5-3.5); LYMPHOCYTES % (AUTO) 11.6 %; MEAN CORPUSCULAR HEMOGLOBIN 23.6 pg (27.0-31.0); MEAN CORPUSCULAR HGB CONC 32.5 g/dL (32.0-36.0); MEAN CORPUSCULAR VOLUME 72.5 fL (80.0-94.0); MEAN PLATELET VOLUME 10.1 fL (7.4-11.4); MONOCYTES # (AUTO) 1.4 10^3/uL (0.0-1.0); NEUTROPHILS # (AUTO) 13.8 10^3/uL (1.5-6.6); PLT - PLATELET COUNT 283 10^3/uL (130-450); RED BLOOD COUNT 4.54 10^6/uL (4.70-6.10); RED CELL DISTRIBUTION WIDTH 16.6 % (12.0-15.0); WHITE BLOOD COUNT 17.8 x10^3/uL (4.8-10.8)
[2020-04-27 05:16] LABS: CALCIUM 8.5 mg/dL (8.5-10.3); CREATININE 0.7 mg/dL (0.6-1.2)
[2020-04-27 05:24] LABS: CHOL/HDL RATIO 2.9 (<5.0); CHOLESTEROL 105 mg/dL; HDL CHOLESTEROL 36 mg/dL; LDL CHOLESTEROL,CALCULATED 55 mg/dL; LDL/HDL RATIO 1.5 (<3.6); VLDL CHOLESTEROL 14 mg/dL
[2020-04-27] MEDS: PANTOPRAZOLE 40 MG VIAL IVP SCH (06:18)
[2020-04-27] MEDS: PRENATAL VITAMIN TABLET PO SCH (08:13)
[2020-04-27] MEDS: SODIUM CHLORIDE FLUSH 0.9% 10 ML SYRINGE IVP SCH ×3 (08:13→23:46)
[2020-04-27] MEDS: CIPROFLOXACIN 400 MG/200 ML 400 MG/200 ML BAG IV SCH ×2 (08:13→21:23)
[2020-04-27] MEDS: ENOXAPARIN 40 MG/0.4 ML SYRINGE SUBQ SCH (08:13)
[2020-04-27] MEDS: SODIUM CHLORIDE 0.9% 1,000 ML IV SCH ×2 (09:36→13:39)
[2020-04-27] MEDS: MULTIVITAMIN 10 ML, THIAMINE INJ 100 MG, FOLIC ACID INJ 1 MG in SODIUM CHLORIDE 0.9% 1,... IV SCH (09:37)
--- NOTE | 2020-04-27 10:58 | PHARMACY PROGRESS NOTE ---
- Best Possible Medication History Admit Date and Time: 04/26/201939 Processed by: Pharmacy Medication History completed: Yes Patient Interview: Completed Secondary Source(s): Insurance records As the person ultimately responsible for medication therapy, providers are able to order a medication from an existing home medication list in [facility] via the "Reconcile Routine" prior to Confirmation of that medication by customer support assistant. Such practice is discouraged except when the physician, in their clinical judgment, deems that a medical need exists for a medication without regard to previous use.
--- NOTE | 2020-04-27 12:44 | PROVIDER PROGRESS NOTE ---
Assessment/Plan - Problem List (1) Pancreatitis, acute Qualifiers: Pancreatitis type: unspecified pancreatitis type Acute pancreatitis complication: unspecified Qualified Code(s): K85.90 - Acute pancreatitis without necrosis or infection, unspecified Assessment/Plan: No pain, no nausea or vomiting. The patient is hungry. We will start clear liquids and advance to pure if tolerated. Follow lipase daily. (2) Alcohol abuse Assessment/Plan: CIWA protocol was ordered with PRN Ativan. His last drink was 6 days before this admission however, because of the abdominal pain, therefore suspect he will not go through withdrawal He is getting a banana bag. If he tolerates p.o., will start vitamin and thiamine and discontinue banana bag. Social work consult requested regarding managing alcohol abuse. (3) Atrial fibrillation with RVR Assessment/Plan: Heart rate is under control, his diltiazem drip is at 5. Since he is hungry and tolerating a diet without pain or N/V, will transition back to his p.o. Cardizem CD, overlap by 1 hour then discontinue the diltiazem drip. If he is stable he can come out of the ICU. There is no history of why he is not on an anticoagulant or aspirin, no discussion about his LV ejection fraction. This will need to be sorted out. (4) Anemia Assessment/Plan: Check B12 and folate levels and iron stores, replace if low He is on IV Protonix for ulcer prophylaxis (5) Leukocytosis Assessment/Plan: Unclear if this was reactive or from an infection, especially with pelvic fluid seen on CT scan. For this reason he was put on empiric Cipro and Flagyl. Monitor clinically to determine further management Follow CBC daily. (6) Rheumatoid arthritis Assessment/Plan: His oral medicine for this was is put on hold because of the possible infection. (7) Hyponatremia Assessment/Plan: Continue with IV fluids. Follow BMP daily (8) HTN (hypertension) Assessment/Plan: Will resume his home medications, when he is hypertensive - Current Meds Current Meds: Current Medications Generic Name Dose Route Start Last Admin Trade Name Freq PRN Reason Stop Dose Admin Enoxaparin Sodium 40 mg 04/27/20 09:00 04/27/20 08:13 Lovenox SUBQ 40 mg DAILY YANI Administration Hydromorphone HCl 0.5 mg 04/26/20 19:40 04/27/20 08:26 Dilaudid Inj Syringe IVP 0.5 mg Q2H PRN Administration Pain 8 to 10 Sodium Chloride 1,000 mls @ 100 mls/hr 04/26/20 20:00 04/27/20 09:36 Normal Saline 0.9% IV Infused .Q10H YANI Infusion Diltiazem HCl 125 mg/ Dextrose 125 mls @ 5 mls/hr 04/26/20 20:00 04/27/20 09:39 IV 5 mg/hr .Q25H YANI 5 mls/hr Titration Protocol 5 MG/HR Multivitamins 10 ml/ Thiamine 1,011.2 mls @ 100 mls/hr 04/27/20 09:00 04/27/20 09:37 HCl 100 mg/ Folic Acid 1 mg/ IV 100 mls/hr Sodium Chloride DAILY YANI Administration Ciprofloxacin 400 mg in 200 mls @ 200 mls/hr 04/26/20 21:00 04/27/20 09:13 Cipro 400 Mg/200 Ml IV Infused Q12H YANI Infusion Metronidazole 500 mg in 100 mls @ 100 mls/hr 04/26/20 21:00 04/27/20 05:30 Flagyl 500 Mg/100 Ml IV Infused Q8H YANI Infusion Pantoprazole Sodium 40 mg 04/27/20 07:00 04/27/20 06:18 Protonix IVP 40 mg QDAC YANI Administration Multivit/Folic Acid/Iron 1 tab 04/27/20 09:00 04/27/20 08:13 Trinatal Rx 1 PO 1 tab DAILY YANI Administration Sodium Chloride 10 ml 04/26/20 19:40 04/27/20 06:18 Normal Saline Flush 0.9% IVP 10 ml PRN PRN Administration NEEDED PER PROVIDER ORDERS Sodium Chloride 10 ml 04/27/20 01:00 04/27/20 08:13 Normal Saline Flush 0.9% IVP 10 ml 0100,0900,1700 YANI Administration - Lab Result Fish Bone Diagrams: 04/28/20 05:25 04/28/20 05:25 - Additional Planning My Orders: My Active Orders 04/27/20 Lunch Clear Liquid Diet [DIET] 04/27/20 Dinner Dysphagia Puree Diet [DIET] Subjective - Subjective Patient Reports: Resting Comfortably, Other ("I'm hungry, I having eaten since Wednesday") Objective Vital Signs: Vital Signs - 24 hr 04/26/20 04/26/20 04/26/20 15:31 16:10 16:27 Temperature 37.6 C H Heart Rate 85 144 H 145 H Heart Rate [ Monitoring electrodes] Respiratory 16 20 18 Rate Blood Pressure 115/79 126/93 H 130/92 H Blood Pressure [Left Brachial artery] O2 Saturation 99 100 100 04/26/20 04/26/20 04/26/20 16:34 16:43 17:05 Temperature Heart Rate 111 H 124 H 137 H Heart Rate [ Monitoring electrodes] Respiratory 18 13 20 Rate Blood Pressure 131/82 H 130/72 146/102 H Blood Pressure [Left Brachial artery] O2 Saturation 99 100 99 04/26/20 04/26/20 04/26/20 17:44 18:08 18:21 Temperature 37.7 C H Heart Rate 138 H 156 H 135 H Heart Rate [ Monitoring electrodes] Respiratory 22 17 23 Rate Blood Pressure 145/120 H 141/105 H 139/105 H Blood Pressure [Left Brachial artery] O2 Saturation 100 96 99 04/26/20 04/26/20 04/26/20 18:30 19:21 20:00 Temperature Heart Rate 148 H 149 H 141 H Heart Rate [ Monitoring electrodes] Respiratory 15 20 16 Rate Blood Pressure 143/106 H 134/97 H 112/83 H Blood Pressure [Left Brachial artery] O2 Saturation 100 100 99 04/26/20 04/26/20 04/26/20 20:35 20:45 20:54 Temperature 37.2 C Heart Rate Heart Rate [ 131 H 132 H 130 H Monitoring electrodes] Respiratory 18 Rate Blood Pressure Blood Pressure 133/92 H 117/81 H 103/86 H [Left Brachial artery] O2 Saturation 100 04/26/20 04/26/20 04/26/20 20:55 21:00 21:05 Temperature Heart Rate Heart Rate [ 134 H 129 H 127 H Monitoring electrodes] Respiratory 16 Rate Blood Pressure Blood Pressure 113/78 102/77 108/79 [Left Brachial artery] O2 Saturation 99 04/26/20 04/26/20 04/26/20 21:11 21:15 21:20 Temperature Heart Rate Heart Rate [ 130 H 127 H 123 H Monitoring electrodes] Respiratory Rate Blood Pressure Blood Pressure 109/63 109/80 103/83 H [Left Brachial artery] O2 Saturation 04/26/20 04/26/20 04/26/20 21:30 22:00 23:00 Temperature Heart Rate Heart Rate [ 115 H 110 H 102 H Monitoring electrodes] Respiratory 24 23 Rate Blood Pressure Blood Pressure 104/68 105/75 106/66 [Left Brachial artery] O2 Saturation 99 100 04/27/20 04/27/20 04/27/20 00:00 01:00 02:00 Temperature Heart Rate Heart Rate [ 109 H 94 103 H Monitoring electrodes] Respiratory 15 26 H 31 H Rate Blood Pressure Blood Pressure 111/78 139/96 H 123/92 H [Left Brachial artery] O2 Saturation 99 100 100 04/27/20 04/27/20 04/27/20 03:00 04:00 05:00 Temperature 36.7 C Heart Rate Heart Rate [ 94 116 H 96 Monitoring electrodes] Respiratory 25 H 16 22 Rate Blood Pressure Blood Pressure 116/68 102/76 134/78 H [Left Brachial artery] O2 Saturation 100 100 98 04/27/20 04/27/20 04/27/20 06:00 07:00 08:00 Temperature 36.5 C Heart Rate Heart Rate [ 86 84 88 Monitoring electrodes] Respiratory 27 H 21 24 Rate Blood Pressure Blood Pressure 120/80 115/85 H 98/70 [Left Brachial artery] O2 Saturation 100 100 100 04/27/20 04/27/20 04/27/20 09:00 10:00 11:00 Temperature Heart Rate Heart Rate [ 95 91 91 Monitoring electrodes] Respiratory 23 16 23 Rate Blood Pressure Blood Pressure 131/71 H 115/76 114/77 [Left Brachial artery] O2 Saturation 100 96 100 04/27/20 12:00 Temperature Heart Rate Heart Rate [ 92 Monitoring electrodes] Respiratory 14 Rate Blood Pressure Blood Pressure 145/81 H [Left Brachial artery] O2 Saturation 98 Oxygen O2 Source Room air I&O (Last 24 Hrs): Intake and Output Totals x24h 04/25/20 04/26/20 04/27/20 23:59 23:59 23:59 Intake Total 910.118 5877.25 Output Total 0 275 Balance 663.806 1469.25 General: Alert, Oriented x3 HEENT: Mucous membr. moist/pink Neck: Supple Neuro: Alert, Non Focal, Other (No tremor, no slurred speech, no nystagmus) Cardiovascular: No murmurs, Other (Irregularly irregular) Respiratory: No respiratory distress Abdomen: Normal bowel sounds, Soft, No tenderness Extremities: No edema - Results Results: Laboratory Results WBC 17.8 x10^3/uL (4.8-10.8) H 04/27/20 04:15 RBC 4.54 10^6/uL (4.70-6.10) L 04/27/20 04:15 Hgb 10.7 g/dL (14.0-18.0) L 04/27/20 04:15 Hct 32.9 % (42.0-52.0) L 04/27/20 04:15 MCV 72.5 fL (80.0-94.0) L 04/27/20 04:15 MCH 23.6 pg (27.0-31.0) L 04/27/20 04:15 MCHC 32.5 g/dL (32.0-36.0) 04/27/20 04:15 RDW 16.6 % (12.0-15.0) H 04/27/20 04:15 Plt Count 283 10^3/uL (130-450) 04/27/20 04:15 MPV 10.1 fL (7.4-11.4) 04/27/20 04:15 Neut # (Auto) 13.8 10^3/uL (1.5-6.6) H 04/27/20 04:15 Lymph # (Auto) 2.1 10^3/uL (1.5-3.5) 04/27/20 04:15 [place] # (Auto) 1.4 10^3/uL (0.0-1.0) H 04/27/20 04:15 Eos # (Auto) 0.4 10^3/uL (0.0-0.7) 04/27/20 04:15 Baso # (Auto) 0.1 10^3/uL (0.0-0.1) 04/27/20 04:15 Absolute Nucleated RBC 0.00 x10^3/uL 04/27/20 04:15 Band Neuts % (Manual) Not Reportable 04/26/20 16:35 Abnorm Lymph % (Manual) Not Reportable 04/26/20 16:35 Nucleated RBC % 0.0 /100WBC 04/27/20 04:15 Neutrophils # (Manual) Not Reportable 04/26/20 16:35 Lymphocytes # (Manual) Not Reportable 04/26/20 16:35 Monocytes # (Manual) Not Reportable 04/26/20 16:35 Eosinophils # (Manual) Not Reportable 04/26/20 16:35 Basophils # (Manual) Not Reportable 04/26/20 16:35 Differential Comment MANUAL=AUTO DIFF 04/26/20 16:35 Manual Slide Review Indicated 04/26/20 16:35 Platelet Estimate NORMAL (130-450,000) (NORMAL) 04/26/20 16:35 Platelet Morphology NORMAL APPEARANCE (NORMAL) 04/26/20 16:35 RBC Morph Micro Appear NORMAL APPEARANCE (NORMAL) 04/26/20 16:35 Sodium 129 mmol/L (135-145) L 04/27/20 04:15 Potassium 3.8 mmol/L (3.5-5.0) 04/27/20 04:15 Chloride 100 mmol/L (101-111) L 04/27/20 04:15 Carbon Dioxide 18 mmol/L (21-32) L 04/27/20 04:15 Anion Gap 11.0 (6-13) 04/27/20 04:15 BUN 12 mg/dL (6-20) 04/27/20 04:15 Creatinine 0.7 mg/dL (0.6-1.2) 04/27/20 04:15 Estimated GFR (MDRD) 139 (>89) 04/27/20 04:15 Glucose 119 mg/dL (70-100) H 04/27/20 04:15 Lactic Acid 1.2 mmol/L (0.5-2.2) 04/26/20 20:49 Calcium 8.5 mg/dL (8.5-10.3) 04/27/20 04:15 Phosphorus 2.8 mg/dL (2.5-4.6) 04/27/20 04:15 Magnesium 2.0 mg/dL (1.7-2.8) 04/27/20 04:15 Total Bilirubin 1.7 mg/dL (0.2-1.0) H 04/26/20 19:58 AST 12 IU/L (10-42) 04/26/20 19:58 ALT 11 IU/L (10-60) 04/26/20 19:58 Alkaline Phosphatase 75 IU/L (42-121) 04/26/20 19:58 Total Protein 6.7 g/dL (6.7-8.2) 04/26/20 19:58 Albumin 3.0 g/dL (3.2-5.5) L 04/26/20 19:58 Globulin 3.7 g/dL (2.1-4.2) 04/26/20 19:58 Albumin/Globulin Ratio 0.8 (1.0-2.2) L 04/26/20 19:58 Triglycerides 69 mg/dL (-149) 04/27/20 04:15 Cholesterol 105 mg/dL (-199) 04/27/20 04:15 LDL Cholesterol, Calc 55 mg/dL (-129) 04/27/20 04:15 VLDL Cholesterol 14 mg/dL 04/27/20 04:15 HDL Cholesterol 36 mg/dL (60-) L 04/27/20 04:15 LDL/HDL Ratio 1.5 (<3.6) 04/27/20 04:15 Cholesterol/HDL Ratio 2.9 (<5.0) 04/27/20 04:15 Lipase 53 U/L (22-51) H 04/26/20 16:35 Urine Color DARK YELLOW 04/26/20 17:15 Urine Clarity CLEAR (CLEAR) 04/26/20 17:15 Urine pH 6.0 PH (5.0-7.5) 04/26/20 17:15 Ur Specific [place] 1.025 (1.002-1.030) 04/26/20 17:15 Urine Protein TRACE mg/dL (NEGATIVE) 04/26/20 17:15 Urine Glucose (UA) NEGATIVE mg/dL (NEGATIVE) 04/26/20 17:15 Urine Ketones 15 mg/dL (NEGATIVE) H 04/26/20 17:15 Urine Occult Blood NEGATIVE (NEGATIVE) 04/26/20 17:15 Urine Nitrite NEGATIVE (NEGATIVE) 04/26/20 17:15 Urine Bilirubin NEGATIVE (NEGATIVE) 04/26/20 17:15 Urine Urobilinogen 1 (NORMAL) E.U./dL (NORMAL) 04/26/20 17:15 Ur Leukocyte Esterase NEGATIVE (NEGATIVE) 04/26/20 17:15 Ur Microscopic Review NOT INDICATED 04/26/20 17:15 Urine Culture Comments NOT INDICATED 04/26/20 17:15 Nasal Screen MRSA (PCR) NEGATIVE (NEGATIVE) 04/26/20 20:35 Ethyl Alcohol < 5.0 mg/dL 04/26/20 16:35
[2020-04-27] MEDS: diltiaZEM CD 240 MG CAPSULE PO SCH (15:51)
[2020-04-28] MEDS: HYDROmorphone 0.5 MG/0.5 ML SYRINGE IVP PRN ×2 (05:01→08:55)
[2020-04-28] MEDS: metroNIDAZOLE 500 MG/100 ML 500 MG/100 ML BAG IV SCH ×3 (05:01→20:34)
[2020-04-28 05:52] LABS: BASOPHILS # (AUTO) 0.1 10^3/uL (0.0-0.1); BASOPHILS % (AUTO) 0.5 %; EOSINOPHILS # (AUTO) 0.4 10^3/uL (0.0-0.7); EOSINOPHILS % (AUTO) 3.1 %; HGB - HEMOGLOBIN 8.4 g/dL (14.0-18.0); LYMPHOCYTES # (AUTO) 1.9 10^3/uL (1.5-3.5); LYMPHOCYTES % (AUTO) 14.7 %; MEAN CORPUSCULAR HEMOGLOBIN 23.5 pg (27.0-31.0); MEAN CORPUSCULAR HGB CONC 32.3 g/dL (32.0-36.0); MEAN CORPUSCULAR VOLUME 72.8 fL (80.0-94.0); MEAN PLATELET VOLUME 9.7 fL (7.4-11.4); MONOCYTES # (AUTO) 0.9 10^3/uL (0.0-1.0); MONOCYTES % (AUTO) 7.4 %; NEUTROPHILS # (AUTO) 9.4 10^3/uL (1.5-6.6); NEUTROPHILS % (AUTO) 73.5 %; PLT - PLATELET COUNT 236 10^3/uL (130-450); RED BLOOD COUNT 3.57 10^6/uL (4.70-6.10); RED CELL DISTRIBUTION WIDTH 16.3 % (12.0-15.0); WHITE BLOOD COUNT 12.8 x10^3/uL (4.8-10.8)
[2020-04-28 06:18] LABS: CREATININE 0.8 mg/dL (0.6-1.2); MAGNESIUM 1.5 mg/dL (1.7-2.8)
[2020-04-28] MEDS: PANTOPRAZOLE 40 MG VIAL IVP SCH (06:40)
[2020-04-28] MEDS ORDERED: MAGNESIUM OXIDE 400 MG TABLET PO ONE (08:21)
[2020-04-28] MEDS: CIPROFLOXACIN 400 MG/200 ML 400 MG/200 ML BAG IV SCH ×2 (08:30→20:34)
[2020-04-28] MEDS: PRENATAL VITAMIN TABLET PO SCH (08:44)
[2020-04-28] MEDS: diltiaZEM CD 240 MG CAPSULE PO SCH (08:44)
[2020-04-28] MEDS: ENOXAPARIN 40 MG/0.4 ML SYRINGE SUBQ SCH (08:44)
[2020-04-28] MEDS ORDERED: SODIUM CHLORIDE 0.9% 1,000 ML IV ONE (08:50)
[2020-04-28] MEDS: ACETAMINOPHEN 325 MG TABLET PO PRN (08:55)
[2020-04-28] MEDS: SODIUM CHLORIDE FLUSH 0.9% 10 ML SYRINGE IVP PRN (08:59)
[2020-04-28] MEDS ORDERED: diltiaZEM CD 240 MG CAPSULE PO SCH (09:00)
[2020-04-28] MEDS: SODIUM CHLORIDE FLUSH 0.9% 10 ML SYRINGE IVP SCH ×2 (09:00→16:57)
[2020-04-28 09:11] LABS: ALBUMIN 2.2 g/dL (3.2-5.5); BILIRUBIN,DIRECT 0.4 mg/dL (0.1-0.5); TOTAL PROTEIN 4.8 g/dL (6.7-8.2)
[2020-04-28] MEDS: polyethylene glycoL 3350 17 GM PACKET PO SCH (09:31)
[2020-04-28] MEDS: MULTIVITAMIN 10 ML, THIAMINE INJ 100 MG, FOLIC ACID INJ 1 MG in SODIUM CHLORIDE 0.9% 1,... IV SCH (10:30)
[2020-04-28] MEDS: POTASSIUM CHLOR 10 MEQ/100 ML 10 MEQ/100 ML BAG IV SCH ×4 (10:30→13:41)
[2020-04-28] MEDS: SODIUM CHLORIDE 0.9% 1,000 ML IV SCH (11:30)
--- NOTE | 2020-04-28 16:52 | PROVIDER PROGRESS NOTE ---
Assessment/Plan - Problem List (1) Pancreatitis, acute Qualifiers: Pancreatitis type: unspecified pancreatitis type Acute pancreatitis complication: unspecified Qualified Code(s): K85.90 - Acute pancreatitis without necrosis or infection, unspecified Assessment/Plan: Patient has no pain, no nausea vomiting. He is tolerating his diet. We will advance diet. The fluid in the pelvis was felt to be from the pancreatic inflammation, by the general surgeon, appreciate his consult. He was put on empiric Cipro and Flagyl because of a possible infection, as the cause of the pelvic fluid. White blood count is improving from 18>>17>>12 today Possible discharge tomorrow. (2) Alcohol abuse Assessment/Plan: Patient is getting a banana bag today. We will stop after this bag Will transition to oral and thiamine. Social work consult requested for alcohol abuse management (3) Atrial fibrillation with RVR Assessment/Plan: He has paroxysmal A. fib on telemetry but the rate is overall controlled. I cannot find anything in the H&P of why he was not on anticoagulation. Reviewing our records, he had an Echo in 2018 that showed LVEF 65% Will obtain Echo to determine current LVEF and decide choice of management for stroke prophylaxis. (4) Anemia Assessment/Plan: He is on thiamine and multivitamins for treatment of the alcoholism. We will obtain B12 and folate levels. Iron level was already checked and he is low in iron. We will start iron replacement. Follow CBC daily (5) Leukocytosis Assessment/Plan: There has been improvement in the white blood count daily but it is still over 10. He is still on empiric Cipro and Flagyl. Possible discharge tomorrow if labs are better (6) Rheumatoid arthritis Assessment/Plan: His RA treatment was on hold because of the leukocytosis in case there is an active infection. His med can be started after the antibiotic has been discontinued (7) Hyponatremia Assessment/Plan: Sodium is getting better daily. Follow BMP daily (8) Hypokalemia Assessment/Plan: Likely from inadequate intake. Replace. Follow BMP daily (9) HTN (hypertension) Assessment/Plan: Adequate blood pressure control on his current manage - Current Meds Current Meds: Current Medications Generic Name Dose Route Start Last Admin Trade Name Freq PRN Reason Stop Dose Admin Acetaminophen 650 mg 04/28/20 08:19 04/28/20 08:55 Tylenol PO 650 mg Q4HR PRN Administration Pain or Fever > 38C (100.4F) Diltiazem HCl 240 mg 04/27/20 15:44 04/28/20 08:44 Cardizem Cd PO 240 mg DAILY YANI Administration Enoxaparin Sodium 40 mg 04/27/20 09:00 04/28/20 08:44 Lovenox SUBQ 40 mg DAILY YANI Administration Hydromorphone HCl 0.5 mg 04/26/20 19:40 04/28/20 08:55 Dilaudid Inj Syringe IVP 0.5 mg Q2H PRN Administration Pain 8 to 10 Multivitamins 10 ml/ Thiamine 1,011.2 mls @ 100 mls/hr 04/27/20 09:00 04/28/20 14:52 HCl 100 mg/ Folic Acid 1 mg/ IV 04/28/20 20:00 100 mls/hr Sodium Chloride DAILY YANI Infusion Ciprofloxacin 400 mg in 200 mls @ 200 mls/hr 04/26/20 21:00 04/28/20 09:30 Cipro 400 Mg/200 Ml IV Infused Q12H YANI Infusion Metronidazole 500 mg in 100 mls @ 100 mls/hr 04/26/20 21:00 04/28/20 14:51 Flagyl 500 Mg/100 Ml IV Infused Q8H YANI Infusion Sodium Chloride 1,000 mls @ 50 mls/hr 04/28/20 08:20 04/28/20 11:31 Normal Saline 0.9% IV 0 mls/hr .Q20H YANI Infusion Polyethylene Glycol 17 gm 04/28/20 10:00 04/28/20 09:31 Miralax PO 17 gm DAILY YANI Administration Multivit/Folic Acid/Iron 1 tab 04/27/20 09:00 04/28/20 08:44 Trinatal Rx 1 PO 1 tab DAILY YANI Administration Sodium Chloride 10 ml 04/26/20 19:40 04/28/20 08:59 Normal Saline Flush 0.9% IVP 10 ml PRN PRN Administration NEEDED PER PROVIDER ORDERS Sodium Chloride 10 ml 04/27/20 01:00 04/28/20 09:00 Normal Saline Flush 0.9% IVP 10 ml 0100,0900,1700 YANI Administration - Lab Result Fish Bone Diagrams: 04/28/20 05:25 04/28/20 05:25 - Additional Planning My Orders: My Active Orders 04/27/20 17:55 Telemetry- [RC] Q4HR 04/28/20 Social Work Consult [CONS] Routine 04/28/20 08:19 Acetaminophen [Tylenol] 650 mg PO Q4HR PRN 04/28/20 08:20 Sodium Chloride 0.9% [Normal Saline 0.9%] 1,000 ml IV 50 mls/hr 04/28/20 08:22 Miscellaenous Nursing Order [RC] QSHIFT 04/28/20 10:00 polyethylene glycoL 3350 [Miralax] 17 gm PO DAILY 04/28/20 Lunch DIET [Soft Mechanical Diet] [DIET] 04/28/20 21:00 Famotidine [Pepcid] 20 mg PO BID 04/29/20 05:00 LIPASE [CHEM] DAILYLAB Subjective - Subjective Patient Reports: Feeling Better, Resting Comfortably, No Complaints Objective Vital Signs: Vital Signs - 24 hr 04/27/20 04/27/20 04/27/20 17:00 18:00 19:00 Temperature Heart Rate [ 81 89 79 Monitoring electrodes] Respiratory 28 H 20 17 Rate Blood Pressure 142/84 H 154/78 H 139/70 H [Left Brachial artery] Blood Pressure [Right Brachial artery] O2 Saturation 98 99 100 04/27/20 04/27/20 04/28/20 19:40 20:00 00:07 Temperature 37.9 C H 37.2 C Heart Rate [ 73 63 Monitoring electrodes] Respiratory 16 16 Rate Blood Pressure 137/75 H [Left Brachial artery] Blood Pressure 123/72 [Right Brachial artery] O2 Saturation 99 100 04/28/20 04/28/20 04/28/20 05:30 07:53 13:20 Temperature 36.5 C 37 C 37 C Heart Rate [ 66 66 75 Monitoring electrodes] Respiratory 16 16 16 Rate Blood Pressure [Left Brachial artery] Blood Pressure 116/75 137/70 H 129/79 [Right Brachial artery] O2 Saturation 99 100 100 04/28/20 15:52 Temperature 37.2 C Heart Rate [ 64 Monitoring electrodes] Respiratory 18 Rate Blood Pressure [Left Brachial artery] Blood Pressure 126/82 H [Right Brachial artery] O2 Saturation 100 Oxygen O2 Source Room air I&O (Last 24 Hrs): Intake and Output Totals x24h 04/26/20 04/27/20 04/28/20 23:59 23:59 23:59 Intake Total 673.062 1462.034 2598.332 Output Total 0 325 1300 Balance 011.060 0871.034 1298.332 General: Alert, Oriented x3 HEENT: Mucous membr. moist/pink Neck: Supple, No JVD Neuro: Alert, Non Focal, Other (No tremor, no nystagmus) Cardiovascular: Regular rate, No murmurs Respiratory: Chest non-tender Abdomen: Soft, No tenderness, Other (Diminished breath sounds, mildly distended) Extremities: No edema - Results Results: Laboratory Results WBC 12.8 x10^3/uL (4.8-10.8) H 04/28/20 05:25 RBC 3.57 10^6/uL (4.70-6.10) L 04/28/20 05:25 Hgb 8.4 g/dL (14.0-18.0) L 04/28/20 05:25 Hct 26.0 % (42.0-52.0) L 04/28/20 05:25 MCV 72.8 fL (80.0-94.0) L 04/28/20 05:25 MCH 23.5 pg (27.0-31.0) L 04/28/20 05:25 MCHC 32.3 g/dL (32.0-36.0) 04/28/20 05:25 RDW 16.3 % (12.0-15.0) H 04/28/20 05:25 Plt Count 236 10^3/uL (130-450) 04/28/20 05:25 MPV 9.7 fL (7.4-11.4) 04/28/20 05:25 Neut # (Auto) 9.4 10^3/uL (1.5-6.6) H 04/28/20 05:25 Lymph # (Auto) 1.9 10^3/uL (1.5-3.5) 04/28/20 05:25 [place] # (Auto) 0.9 10^3/uL (0.0-1.0) 04/28/20 05:25 Eos # (Auto) 0.4 10^3/uL (0.0-0.7) 04/28/20 05:25 Baso # (Auto) 0.1 10^3/uL (0.0-0.1) 04/28/20 05:25 Absolute Nucleated RBC 0.00 x10^3/uL 04/28/20 05:25 Band Neuts % (Manual) Not Reportable 04/26/20 16:35 Abnorm Lymph % (Manual) Not Reportable 04/26/20 16:35 Nucleated RBC % 0.0 /100WBC 04/28/20 05:25 Neutrophils # (Manual) Not Reportable 04/26/20 16:35 Lymphocytes # (Manual) Not Reportable 04/26/20 16:35 Monocytes # (Manual) Not Reportable 04/26/20 16:35 Eosinophils # (Manual) Not Reportable 04/26/20 16:35 Basophils # (Manual) Not Reportable 04/26/20 16:35 Differential Comment MANUAL=AUTO DIFF 04/26/20 16:35 Manual Slide Review Indicated 04/26/20 16:35 Platelet Estimate NORMAL (130-450,000) (NORMAL) 04/26/20 16:35 Platelet Morphology NORMAL APPEARANCE (NORMAL) 04/26/20 16:35 RBC Morph Micro Appear NORMAL APPEARANCE (NORMAL) 04/26/20 16:35 Sodium 132 mmol/L (135-145) L 04/28/20 05:25 Potassium 3.2 mmol/L (3.5-5.0) L 04/28/20 05:25 Chloride 105 mmol/L (101-111) 04/28/20 05:25 Carbon Dioxide 19 mmol/L (21-32) L 04/28/20 05:25 Anion Gap 8.0 (6-13) 04/28/20 05:25 BUN 6 mg/dL (6-20) 04/28/20 05:25 Creatinine 0.8 mg/dL (0.6-1.2) 04/28/20 05:25 Estimated GFR (MDRD) 120 (>89) 04/28/20 05:25 Glucose 107 mg/dL (70-100) H 04/28/20 05:25 Lactic Acid 1.2 mmol/L (0.5-2.2) 04/26/20 20:49 Calcium 7.0 mg/dL (8.5-10.3) L 04/28/20 05:25 Phosphorus 2.8 mg/dL (2.5-4.6) 04/27/20 04:15 Magnesium 1.5 mg/dL (1.7-2.8) L 04/28/20 05:25 Total Bilirubin 1.0 mg/dL (0.2-1.0) 04/28/20 05:22 Direct Bilirubin 0.4 mg/dL (0.1-0.5) 04/28/20 05:22 AST 10 IU/L (10-42) 04/28/20 05:22 ALT 10 IU/L (10-60) 04/28/20 05:22 Alkaline Phosphatase 49 IU/L (42-121) 04/28/20 05:22 Total Protein 4.8 g/dL (6.7-8.2) L 04/28/20 05:22 Albumin 2.2 g/dL (3.2-5.5) L 04/28/20 05:22 Globulin 2.7 g/dL (2.1-4.2) 04/28/20 05:22 Albumin/Globulin Ratio 0.8 (1.0-2.2) L 04/26/20 19:58 Triglycerides 69 mg/dL (-149) 04/27/20 04:15 Cholesterol 105 mg/dL (-199) 04/27/20 04:15 LDL Cholesterol, Calc 55 mg/dL (-129) 04/27/20 04:15 VLDL Cholesterol 14 mg/dL 04/27/20 04:15 HDL Cholesterol 36 mg/dL (60-) L 04/27/20 04:15 LDL/HDL Ratio 1.5 (<3.6) 04/27/20 04:15 Cholesterol/HDL Ratio 2.9 (<5.0) 04/27/20 04:15 Lipase 59 U/L (22-51) H 04/28/20 05:22 Urine Color DARK YELLOW 04/26/20 17:15 Urine Clarity CLEAR (CLEAR) 04/26/20 17:15 Urine pH 6.0 PH (5.0-7.5) 04/26/20 17:15 Ur Specific Sylvia 1.025 (1.002-1.030) 04/26/20 17:15 Urine Protein TRACE mg/dL (NEGATIVE) 04/26/20 17:15 Urine Glucose (UA) NEGATIVE mg/dL (NEGATIVE) 04/26/20 17:15 Urine Ketones 15 mg/dL (NEGATIVE) H 04/26/20 17:15 Urine Occult Blood NEGATIVE (NEGATIVE) 04/26/20 17:15 Urine Nitrite NEGATIVE (NEGATIVE) 04/26/20 17:15 Urine Bilirubin NEGATIVE (NEGATIVE) 04/26/20 17:15 Urine Urobilinogen 1 (NORMAL) E.U./dL (NORMAL) 04/26/20 17:15 Ur Leukocyte Esterase NEGATIVE (NEGATIVE) 04/26/20 17:15 Ur Microscopic Review NOT INDICATED 04/26/20 17:15 Urine Culture Comments NOT INDICATED 04/26/20 17:15 Nasal Screen MRSA (PCR) NEGATIVE (NEGATIVE) 04/26/20 20:35 Ethyl Alcohol < 5.0 mg/dL 04/26/20 16:35
--- NOTE | 2020-04-28 20:06 | PROVIDER PROGRESS NOTE ---
Hospitalist Cross-cover Note - Cross-Cover Note Cross-Cover Note: The patient was given IV diuretic in the ER and has started to have diuresis and feels better, is less orthopneic. Blood pressure has improved from 150 systolic to 130 systolic, heart rate down from 114 to 90. Bedside Echo was done by myself and shows very dilated LV, thickened LV gupta, severe global hypokinesis, EF about 15%. I discussed with patient the possible reasons for this finding: Untreated hypertension longstanding, drug or alcohol abuse, viral infection causing cardiomyopathy, coronary disease causing global ischemia. Will add Spironolactone and start TANVI inhibitor. Continue IV diuretic and beta- fahad. The troponins are continuing to rise: 70>> 130>> 166. Will continue to test serial troponins until we see the peak and it turns around. Will add 4 baby aspirin now and daily baby ASA, and start Nitropaste. He will need to be transferred to higher level of care, in his case to [facility], I will attempt to do this to tomorrow. I told him and our [facility] RN this. I spoke to his supervisor grinding by phone at [facility] Ruthie regarding: he will not be arriving for his first day of work on 05/01/20, his diagnosis is CHF, a possible return to light duty will be in 1 to 3 months. Critical care time spent on all the above: 45 minutes
[2020-04-28] MEDS: FAMOTIDINE 20 MG TABLET PO SCH (20:34)
[2020-04-29] MEDS: SODIUM CHLORIDE FLUSH 0.9% 10 ML SYRINGE IVP SCH ×3 (00:28→19:14)
[2020-04-29] MEDS: ACETAMINOPHEN 325 MG TABLET PO PRN ×2 (00:37→17:04)
[2020-04-29] MEDS: CIPROFLOXACIN 400 MG/200 ML 400 MG/200 ML BAG IV SCH ×3 (05:16→21:04)
[2020-04-29] MEDS: metroNIDAZOLE 500 MG/100 ML 500 MG/100 ML BAG IV SCH ×3 (05:20→23:00)
[2020-04-29 06:19] LABS: BASOPHILS # (AUTO) 0.1 10^3/uL (0.0-0.1); BASOPHILS % (AUTO) 0.5 %; EOSINOPHILS # (AUTO) 0.4 10^3/uL (0.0-0.7); EOSINOPHILS % (AUTO) 3.2 %; HGB - HEMOGLOBIN 9.5 g/dL (14.0-18.0); LYMPHOCYTES # (AUTO) 2.3 10^3/uL (1.5-3.5); LYMPHOCYTES % (AUTO) 19.6 %; MEAN CORPUSCULAR HEMOGLOBIN 23.9 pg (27.0-31.0); MEAN CORPUSCULAR HGB CONC 32.9 g/dL (32.0-36.0); MEAN CORPUSCULAR VOLUME 72.6 fL (80.0-94.0); MEAN PLATELET VOLUME 9.6 fL (7.4-11.4); MONOCYTES % (AUTO) 8.5 %; NEUTROPHILS # (AUTO) 7.9 10^3/uL (1.5-6.6); NEUTROPHILS % (AUTO) 67.3 %; PLT - PLATELET COUNT 297 10^3/uL (130-450); RED BLOOD COUNT 3.98 10^6/uL (4.70-6.10); RED CELL DISTRIBUTION WIDTH 16.3 % (12.0-15.0); WHITE BLOOD COUNT 11.8 x10^3/uL (4.8-10.8)
[2020-04-29 06:36] LABS: BUN - BLOOD UREA NITROGEN < 5 mg/dL (6-20); CALCIUM 8.2 mg/dL (8.5-10.3); CARBON DIOXIDE - CO2 17 mmol/L (21-32); CHLORIDE 104 mmol/L (101-111); CREATININE 0.8 mg/dL (0.6-1.2); GLUCOSE 113 mg/dL (70-100); LIPASE 64 U/L (22-51); SODIUM 133 mmol/L (135-145)
[2020-04-29] MEDS: diltiaZEM CD 240 MG CAPSULE PO SCH (08:55)
[2020-04-29] MEDS: PRENATAL VITAMIN TABLET PO SCH (08:57)
[2020-04-29] MEDS: FAMOTIDINE 20 MG TABLET PO SCH ×2 (08:58→21:07)
[2020-04-29] MEDS: polyethylene glycoL 3350 17 GM PACKET PO SCH (09:08)
[2020-04-29] MEDS: ENOXAPARIN 40 MG/0.4 ML SYRINGE SUBQ SCH (13:57)
[2020-04-29] MEDS: SODIUM CHLORIDE 0.9% 1,000 ML IV SCH (14:31)
[2020-04-29] MEDS: ASPIRIN EC 81 MG TABLET PO SCH (14:36)
--- NOTE | 2020-04-29 14:47 | Discharge Plan ---
Discharge Plan Problem Reviewed?: Yes Disposition: Home, Self Care Condition: Stable Diet: Soft Activity Restrictions: Activity as Tolerated Shower Restrictions: No Driving Restrictions: No Instruction Topics: Pancreatitis Health Concerns: You were admitted with abdominal pain caused by acute pancreatitis. This was probably caused by alcohol use that was excessive. You needed bowel rest in order to rest the pancreas. At home, you should also eat a soft and easy to digest diet. You have been on antibiotics because of a suspected infection in the lower abdomen versus inflammatory fluid of the pancreas, seen in the abdomen on the CT scan. You are being discharged to finish a course of antibiotics. Resume all your other pre-hospital medications. All prescriptions were sent electronically to your pharmacy. You were seen by mental health social worker and given resources to help with managing alcohol abuse. Please see your PCP in the next 5 to 7 days for hospital follow-up. Plan of Treatment: As above. Care Goals: Improvement in symptoms and stabilization are the goals. Assessment: Patient understands, he was given written instructions at discharge. No Smoking: If you smoke, Please STOP! Call for help. Follow-up with: Key Bronson ARNP [Primary Care Provider] -
--- NOTE | 2020-04-29 15:02 | CONSULTATION NOTE ---
Referring Provider Name of Referring Provider:: Dr. Apodaca Consult Date: 04/29/20 Chief Complaint - Chief Complaint Chief Complaint: ABDOMINAL PAIN AND ABNORMAL CT FINDINGS History of Present Illness - Admitted From Admitted From:: HOME - History Obtained From Records Reviewed: EMR History obtained from: PATIENT Exam Limitations: NONE - History of Present Illness HPI Comment/Other: 60-year-old male with history of atrial fibrillation, rheumatoid arthritis and alcohol abuse who presented to the ED with complaint of epigastric pain. Patient is on immunomodulatory therapy for which he undergoes regular infusions. He is also on daily prednisone. Secondary to his abdominal discomfort he had avoided oral intake and deferred his cardiac medication resulting in rapid atrial fibrillation. Work-up in the ED included a CT of the abdomen pelvis which showed pancreatitis with some peripancreatic edema. It also reported some free fluid in the pelvic floor, moreover it revealed mesenteric inflammation concerning for mesenteric panniculitis versus sclerosing mesenteritis given his history of autoimmune disease. Patient has no family history of inflammatory bowel disease/Crohn's disease/ulcerative colitis. He reports colonoscopy within the last 3 to 5 years which was unremarkable. No family history of colorectal cancer. No recent episodes similar to his acute presentation. Patient denies any excessive alcohol use or abuse. He does admit that several of his drugs have risk of adverse reaction including pancreatitis. No recent sick contacts or travel. He reports overall change in bowel movements to less formed, more liquid, increasing diarrhea over the last several weeks. History - Past Medical History Cardiovascular: reports: Hypertension, Atrial fibrillation Respiratory: reports: None Neuro: reports: Peripheral neuropathy Endocrine/Autoimmune: reports: None GI: reports: None : reports: None HEENT: reports: None Psych: reports: None Musculoskeletal: reports: Rheumatoid arthritis Derm: reports: None MRSA Hx?: No - Past Surgical History General: reports: Hiatal hernia repair, Other Ortho: reports: Other (Left foot/ankle surgery due to flatfoot) - Family & Social History Family History Comment/Other: Patient denies any significant family history. Living arrangement: At home Social History Notes: Patient drinks alcohol daily. He uses an e-cigarette and occasionally smokes marijuana. - POLST Patient has POLST: No POLST Status: Full Code Meds/Allgy - Home Medications Home Medications: Ambulatory Orders Medication Instructions Recorded Confirmed Aspirin 81 mg PO DAILY 04/27/20 04/27/20 Celecoxib [Celebrex] 200 mg PO BIDWM 04/27/20 04/27/20 Diltiazem HCl [Dilt-Xr] 240 mg PO DAILY 04/27/20 04/27/20 Lisinopril [Zestril] 40 mg PO DAILY 04/27/20 04/27/20 predniSONE [Prednisone] 10 mg PO DAILY 04/27/20 04/27/20 - Allergies Allergies/Adverse Reactions: Allergies Allergy/AdvReac Type Severity Reaction Status Date / Time amoxicillin Allergy Respiratory Verified 04/26/20 15:31 Review of Systems - Constitutional Constitutional: reports: Fatigue - Gastrointestinal Gastrointestinal: reports: Abdominal pain, Diarrhea, Change in bowel habits. d enies: Black stools, Bloody stools, Nausea, Vomiting Exam - Vital Signs Vital Signs: Vital Signs x48h Temp Pulse Resp BP Pulse Ox 04/29/20 11:20 37.2 C 70 18 121/78 100 04/29/20 08:15 36.1 C L 70 18 130/76 100 - Physical Exam General Appearance: positive: No acute distress, Alert, Mild distress Eyes Bilateral: positive: Normal inspection, PERRL, EOMI ENT: positive: ENT inspection nml Neck: positive: Nml inspection Respiratory: positive: Chest non-tender, No respiratory distress. negative: Wheezes, Rales, Rhonchi Cardiovascular: positive: Irregularly irregular Abdomen: positive: Non-tender, No distention. negative: Tenderness, Guarding, Rebound Neurologic/Psychiatric: positive: Oriented x3, CN's nml (2-12), Motor nml, Sensation nml, Mood/affect nml Conclusion/Plan - Diagnosis Diagnosis: 1. Atrial fibrillation. 2. Pancreatitis. 3. Rheumatoid arthritis. 4. Immunocompromised state. 5. Immunomodulatory therapy. 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 If the patient has not already I would recommend sending stool studies to rule out any infectious cause of his presenting abdominal pain and his altered bowel habits. Moreover the patient will need within the near future a repeat colonoscopy with random biopsies to rule out a colitis pathologically by histology. As it relates to his findings on CT of mesenteric panniculitis versus sclerosing mesenteric-itis, these are very difficult to diagnose and a single imaging study is not enough to rule in or out either 1 of these especially in this patient with con commitment presentation with pancreatitis. To assure that in this immunocompromised patient for whom associated risk is high I would recommend a repeat CAT scan without contrast just to assure there is no worsening stigmata at this time including pneumatosis portal venous gas or other worrisome features as read expect to see given his multiple risk factors which include and are not limited to: 1. Atrial fibrillation 2. Immunocompromised state 3. Autoimmune disease Plan thus going forward it would be as follows: 1. Stool studies which can be obtained prior to discharge and followed up as an outpatient 2. Repeat imaging CT noncontrast to assure there is no propagation of fluid and or other findings noted on his admission CAT scan 3. Outpatient colonoscopy to work-up his persistent change in bowel movements 4. Reiteration of the importance of avoiding alcohol consumption given his multiple associated risk factors Please note that voice recognition software was used to transcribe this note and inadvertent errors might persist in spite of review and editing. I am obliged to you for your attention. I am thankful to you for allowing me to participate with you in this care of this patient. - Lab Results Fish Bones: 04/29/20 05:55 04/29/20 05:55 - Diagnostic Imaging Results Diagnostic Imaging Results: positive: Prelim report reviewed Diagnostic Imaging Results Comments: Impression CT abdomen pelvis: 1. Normal appendix 2. A mild amount of inflammatory changes seen surrounding the pancreas which may be related to pancreatitis. This is improved compared to 2018. Please correlate with patient presentation the laboratory values. 3. Generalized inflammatory change concede within the midportion of the mesenteric fatty stranding. This is most typically idiopathic and related to chronic inflammation. This is new compared to 2018. 4. A mild amount of free fluid seen with associated layering within the pelvis. Which is always abnormal for a male.
--- NOTE | 2020-04-29 17:12 | CT Report ---
PROCEDURE: Abdomen/Pelvis WO INDICATIONS: PANCREATITIS AND PELVIC FLUID, f/u TECHNIQUE: Noncontrast 5 mm thick sections acquired from the diaphragms to the symphysis. 5 mm coronal and sagi ttal reformats were then performed. For radiation dose reduction, the following was used: automated exposure control, adjustment of mA and/or kV according to patient size. COMPARISON: 04/26/2020 CT abdomen/pelvis. FINDINGS: Image quality: Excellent. No free fluid within the peritoneal space is found. ABDOMEN: Lung bases: Lung bases are clear. Heart size is normal. Solid organs: Liver and spleen are normal in size. Gallbladder appears to contain internal debris o r noncalcified gallstones but shows no evidence of acute cholecystitis. Pancreas is indistinct in it s margination, as was previously the case, consistent with pancreatitis and peripancreatic edema. Thi s pattern was previously present and tracks inferiorly along the root of the small bowel mesentery an d also peripherally towards the splenic hilum. No peripancreatic abnormal fluid collection is seen th at would suggest pseudocyst formation.. No adrenal nodules. Kidneys are normal in size, without hyd ronephrosis or nephrolithiasis. Peritoneum and bowel: Unenhanced bowel loops demonstrate normal wall thickness and caliber. No free fluid or air. Nodes and vessels: No retroperitoneal or mesenteric adenopathy by size criteria. Aorta and inferior vena cava are normal in caliber. Miscellaneous: No ventral hernias. PELVIS: Genitourinary: Bladder wall thickness is normal. Miscellaneous: No inguinal hernias or adenopathy. No free fluid found. Bones: No suspicious bony lesions. No vertebral body compression fractures. IMPRESSION: Acute pancreatitis, moderately severe, without peripancreatic pseudocyst formation or evidence of adj acent abscess. Calcified gallstones are not found but there does appear to the likelihood of internal debris or noncalcified gallstones within the gallbladder lumen. Gallbladder ultrasound is recommende d to more accurately assess this finding and to assist in establishing potential for gallstone passag e as cause of current pancreatitis. Reviewed by: Yoan Bustillo MD on 04/29/2020 5:11 PM PDT Approved by: Yoan Bustillo MD on 04/29/2020 5:11 PM PDT Station ID: [id number]
--- NOTE | 2020-04-29 17:20 | PROVIDER PROGRESS NOTE ---
Assessment/Plan - Problem List (1) Pancreatitis, acute Qualifiers: Pancreatitis type: unspecified pancreatitis type Acute pancreatitis complication: unspecified Qualified Code(s): K85.90 - Acute pancreatitis without necrosis or infection, unspecified Assessment/Plan: Lipase value is rising slowly throughout this hospitalization, despite the patient having no further abdominal pain, nausea or vomiting. Dr. Simmons recommended a follow-up CT of the abdomen to be done today because of the fluid seen in the pelvis on the initial CT abd/pelvis. Today's CT scan shows continued moderate-severe pancreatitis and it is probable gallstone pancreatitis. Dr. Simmons will be recommending further management to include continued bowel rest, n.p.o. status, IV fluids, removal of his gallbladder and gallstones in several days. (2) Leukocytosis Assessment/Plan: Patient presented with a white blood count of 18 which slowly has decreased to 17, 12, and is 11 today, but is still not under 10. He has been on empiric Cipro and Flagyl because of the fluid seen in pelvis on admission CT abdomen/pelvis. The high white blood count could be explained by persistent pancreatitis, see above. Awaiting further recommendations from general surgeon, Dr. Simmons, regarding continued Cipro and Flagyl use. (3) Alcohol abuse Assessment/Plan: According to the history, the patient developed abdominal pain and stopped his alcohol intake 6 days before this presentation. We saw no alcohol withdrawal during this hospitalization. CIWA protocol was ordered just in case. He was getting a banana bag IV till yesterday. (4) Atrial fibrillation with RVR Assessment/Plan: He required IV diltiazem in the ICU in the first part of this hospitalization, he was transferred out of the ICU and on p.o. diltiazem for rate control. There was no mention at admission of whether he was on aspirin or anticoagulants for stroke prophylaxis in a patient with A. fib. The admitting supervisor [employer] reported that the patient said he was only on aspirin because "his A. fib was not that bad". An Echo was done today to establish his LVEF to determine his CHADS2 score: He has a score of 1 (hypertension only), the LVEF is within normal limits. Daily baby aspirin was ordered. (5) Anemia Assessment/Plan: Hemoglobin has plateaued at 8.5-9.5. It was 11 at admission. We will check B12, folate levels and iron stores and replace if low. (6) Rheumatoid arthritis Assessment/Plan: His immune therapy was stopped because of the likelihood of an infection. He currently has no complaints of joint pains or areas that appear hot and swollen. (7) Hyponatremia Assessment/Plan: He was on fluids including a banana bag and the sodium has only improved from 131 and is at 133 today. Follow BMP (8) Hypokalemia Assessment/Plan: This was felt to be from inadequate potassium intake related to his alcohol abuse. It was replaced yesterday. The serum potassium is normal today. Follow BMP daily (9) HTN (hypertension) Assessment/Plan: BP is controlled on current medications and management. - Current Meds Current Meds: Current Medications Generic Name Dose Route Start Last Admin Trade Name Freq PRN Reason Stop Dose Admin Acetaminophen 650 mg 04/28/20 08:19 04/29/20 17:04 Tylenol PO 650 mg Q4HR PRN Administration Pain or Fever > 38C (100.4F) Aspirin 81 mg 04/29/20 14:24 04/29/20 14:36 Ecotrin PO 81 mg DAILY YANI Administration Diltiazem HCl 240 mg 04/27/20 15:44 04/29/20 08:55 Cardizem Cd PO 240 mg DAILY YANI Administration Enoxaparin Sodium 40 mg 04/27/20 09:00 04/29/20 13:57 Lovenox SUBQ 40 mg DAILY YANI Administration Famotidine 20 mg 04/28/20 21:00 04/29/20 08:58 Pepcid PO 20 mg BID YANI Administration Hydromorphone HCl 0.5 mg 04/26/20 19:40 04/28/20 08:55 Dilaudid Inj Syringe IVP 0.5 mg Q2H PRN Administration Pain 8 to 10 Ciprofloxacin 400 mg in 200 mls @ 200 mls/hr 04/26/20 21:00 04/29/20 09:59 Cipro 400 Mg/200 Ml IV Infused Q12H YANI Infusion Metronidazole 500 mg in 100 mls @ 100 mls/hr 04/26/20 21:00 04/29/20 14:08 Flagyl 500 Mg/100 Ml IV Infused Q8H YANI Infusion Sodium Chloride 1,000 mls @ 50 mls/hr 04/28/20 08:20 04/29/20 14:31 Normal Saline 0.9% IV Not Given .Q20H YANI Polyethylene Glycol 17 gm 04/28/20 10:00 04/29/20 09:08 Miralax PO Not Given DAILY YANI Multivit/Folic Acid/Iron 1 tab 04/27/20 09:00 04/29/20 08:57 Trinatal Rx 1 PO 1 tab DAILY YANI Administration Sodium Chloride 10 ml 04/26/20 19:40 04/28/20 08:59 Normal Saline Flush 0.9% IVP 10 ml PRN PRN Administration NEEDED PER PROVIDER ORDERS Sodium Chloride 10 ml 04/27/20 01:00 04/29/20 11:25 Normal Saline Flush 0.9% IVP Not Given 0100,0900,1700 YANI - Lab Result Fish Bone Diagrams: 04/29/20 05:55 04/29/20 05:55 - Additional Planning My Orders: My Active Orders 04/28/20 21:00 Famotidine [Pepcid] 20 mg PO BID 04/29/20 Consult [General Surgery Consult] [CONS] Routine 04/29/20 08:00 Echo Transthoracic Complete [ECHO] Routine 04/29/20 14:24 Aspirin EC [Ecotrin] 81 mg PO DAILY Objective Vital Signs: Vital Signs - 24 hr 04/28/20 04/29/20 04/29/20 20:22 00:19 05:00 Temperature 37.4 C 37.5 C 35.9 C L Heart Rate [ 69 83 73 Monitoring electrodes] Respiratory 18 18 16 Rate Blood Pressure 142/76 H 139/85 H 125/82 H [Right Brachial artery] O2 Saturation 100 99 100 04/29/20 04/29/20 08:15 11:20 Temperature 36.1 C L 37.2 C Heart Rate [ 70 70 Monitoring electrodes] Respiratory 18 18 Rate Blood Pressure 130/76 121/78 [Right Brachial artery] O2 Saturation 100 100 Oxygen O2 Source Room air I&O (Last 24 Hrs): Intake and Output Totals x24h 04/27/20 04/28/20 04/29/20 23:59 23:59 23:59 Intake Total 3680.034 3983.199 1000 Output Total 325 2125 1350 Balance 3355.034 1858.199 -350 General: Alert, Oriented x3 HEENT: Mucous membr. moist/pink Neck: Supple Neuro: Alert, Non Focal Cardiovascular: No murmurs Respiratory: No respiratory distress Abdomen: Soft Extremities: No edema - Results Results: Laboratory Results WBC 11.8 x10^3/uL (4.8-10.8) H 04/29/20 05:55 RBC 3.98 10^6/uL (4.70-6.10) L 04/29/20 05:55 Hgb 9.5 g/dL (14.0-18.0) L 04/29/20 05:55 Hct 28.9 % (42.0-52.0) L 04/29/20 05:55 MCV 72.6 fL (80.0-94.0) L 04/29/20 05:55 MCH 23.9 pg (27.0-31.0) L 04/29/20 05:55 MCHC 32.9 g/dL (32.0-36.0) 04/29/20 05:55 RDW 16.3 % (12.0-15.0) H 04/29/20 05:55 Plt Count 297 10^3/uL (130-450) 04/29/20 05:55 MPV 9.6 fL (7.4-11.4) 04/29/20 05:55 Neut # (Auto) 7.9 10^3/uL (1.5-6.6) H 04/29/20 05:55 Lymph # (Auto) 2.3 10^3/uL (1.5-3.5) 04/29/20 05:55 [place] # (Auto) 1.0 10^3/uL (0.0-1.0) 04/29/20 05:55 Eos # (Auto) 0.4 10^3/uL (0.0-0.7) 04/29/20 05:55 Baso # (Auto) 0.1 10^3/uL (0.0-0.1) 04/29/20 05:55 Absolute Nucleated RBC 0.00 x10^3/uL 04/29/20 05:55 Band Neuts % (Manual) Not Reportable 04/26/20 16:35 Abnorm Lymph % (Manual) Not Reportable 04/26/20 16:35 Nucleated RBC % 0.0 /100WBC 04/29/20 05:55 Neutrophils # (Manual) Not Reportable 04/26/20 16:35 Lymphocytes # (Manual) Not Reportable 04/26/20 16:35 Monocytes # (Manual) Not Reportable 04/26/20 16:35 Eosinophils # (Manual) Not Reportable 04/26/20 16:35 Basophils # (Manual) Not Reportable 04/26/20 16:35 Differential Comment MANUAL=AUTO DIFF 04/26/20 16:35 Manual Slide Review Indicated 04/26/20 16:35 Platelet Estimate NORMAL (130-450,000) (NORMAL) 04/26/20 16:35 Platelet Morphology NORMAL APPEARANCE (NORMAL) 04/26/20 16:35 RBC Morph Micro Appear NORMAL APPEARANCE (NORMAL) 04/26/20 16:35 Sodium 133 mmol/L (135-145) L 04/29/20 05:55 Potassium 3.6 mmol/L (3.5-5.0) 04/29/20 05:55 Chloride 104 mmol/L (101-111) 04/29/20 05:55 Carbon Dioxide 17 mmol/L (21-32) L 04/29/20 05:55 Anion Gap 12.0 (6-13) 04/29/20 05:55 BUN < 5 mg/dL (6-20) L 04/29/20 05:55 Creatinine 0.8 mg/dL (0.6-1.2) 04/29/20 05:55 Estimated GFR (MDRD) 120 (>89) 04/29/20 05:55 Glucose 113 mg/dL (70-100) H 04/29/20 05:55 Lactic Acid 1.2 mmol/L (0.5-2.2) 04/26/20 20:49 Calcium 8.2 mg/dL (8.5-10.3) L 04/29/20 05:55 Phosphorus 2.8 mg/dL (2.5-4.6) 04/27/20 04:15 Magnesium 1.5 mg/dL (1.7-2.8) L 04/28/20 05:25 Total Bilirubin 1.0 mg/dL (0.2-1.0) 04/28/20 05:22 Direct Bilirubin 0.4 mg/dL (0.1-0.5) 04/28/20 05:22 AST 10 IU/L (10-42) 04/28/20 05:22 ALT 10 IU/L (10-60) 04/28/20 05:22 Alkaline Phosphatase 49 IU/L (42-121) 04/28/20 05:22 Total Protein 4.8 g/dL (6.7-8.2) L 04/28/20 05:22 Albumin 2.2 g/dL (3.2-5.5) L 04/28/20 05:22 Globulin 2.7 g/dL (2.1-4.2) 04/28/20 05:22 Albumin/Globulin Ratio 0.8 (1.0-2.2) L 04/26/20 19:58 Triglycerides 69 mg/dL (-149) 04/27/20 04:15 Cholesterol 105 mg/dL (-199) 04/27/20 04:15 LDL Cholesterol, Calc 55 mg/dL (-129) 04/27/20 04:15 VLDL Cholesterol 14 mg/dL 04/27/20 04:15 HDL Cholesterol 36 mg/dL (60-) L 04/27/20 04:15 LDL/HDL Ratio 1.5 (<3.6) 04/27/20 04:15 Cholesterol/HDL Ratio 2.9 (<5.0) 04/27/20 04:15 Lipase 64 U/L (22-51) H 04/29/20 05:55 TSH 1.31 uIU/mL (0.34-5.60) 04/29/20 05:55 Urine Color DARK YELLOW 04/26/20 17:15 Urine Clarity CLEAR (CLEAR) 04/26/20 17:15 Urine pH 6.0 PH (5.0-7.5) 04/26/20 17:15 Ur Specific [place] 1.025 (1.002-1.030) 04/26/20 17:15 Urine Protein TRACE mg/dL (NEGATIVE) 04/26/20 17:15 Urine Glucose (UA) NEGATIVE mg/dL (NEGATIVE) 04/26/20 17:15 Urine Ketones 15 mg/dL (NEGATIVE) H 04/26/20 17:15 Urine Occult Blood NEGATIVE (NEGATIVE) 04/26/20 17:15 Urine Nitrite NEGATIVE (NEGATIVE) 04/26/20 17:15 Urine Bilirubin NEGATIVE (NEGATIVE) 04/26/20 17:15 Urine Urobilinogen 1 (NORMAL) E.U./dL (NORMAL) 04/26/20 17:15 Ur Leukocyte Esterase NEGATIVE (NEGATIVE) 04/26/20 17:15 Ur Microscopic Review NOT INDICATED 04/26/20 17:15 Urine Culture Comments NOT INDICATED 04/26/20 17:15 Nasal Screen MRSA (PCR) NEGATIVE (NEGATIVE) 04/26/20 20:35 Ethyl Alcohol < 5.0 mg/dL 04/26/20 16:35
--- NOTE | 2020-04-29 18:53 | PROVIDER PROGRESS NOTE ---
Progress Note Please see earlier consultation. In brief 60-year-old male with multiple comorbid states including atrial fibrillation, rheumatoid arthritis, immune compromised state on both steroids as well as infused immunomodulatory therapy, who presents with abdominal pain and imaging consistent with pancreatitis. Eager for discharge however repeat imaging secondary to need to reevaluate mesenteric panniculitis revealed persistent moderate to severe pancreatitis in the setting of incremental increase in lipase although not elevated to the requisite 3 times upper limit of normal. He continues to have discomfort. Most importantly interval repeat imaging was concerning for possible gallbladder sludge and/or stones that may be suggestive of gallstone as etiology for patient's pancreatitis. Patient was advised of the indication in the setting of his persistent leukocytosis, although improved, to continue with inpatient evaluation and work-up, to include bowel rest. Would recommend the followin. Bowel rest IV fluids and anti-emetics/pain management 2. MRCP to evaluate the degree of pancreatic involvement as well as choledocholithiasis/cholelithiasis 3. We will continue to follow closely Impression repeat CAT scan abdomen pelvis: Acute pancreatitis, moderately severe, without alistair-pancreatic pseudocyst formation or evidence of adjacent abscess. Calcified gallstones are not found but there does appear to be the likelihood of internal debris or noncalcified gallstones within the gallbladder lumen. Gallbladder ultrasound is recommended to more accurately assess this finding and to assist in establishing potential for gallstone passage as a cause of current pancreatitis.
[2020-04-30] MEDS: ACETAMINOPHEN 325 MG TABLET PO PRN ×4 (00:57→22:21)
[2020-04-30] MEDS: SODIUM CHLORIDE 0.9% 1,000 ML IV SCH (00:58)
[2020-04-30] MEDS: SODIUM CHLORIDE FLUSH 0.9% 10 ML SYRINGE IVP SCH ×3 (01:03→20:48)
[2020-04-30 05:56] LABS: BASOPHILS # (AUTO) 0.1 10^3/uL (0.0-0.1); BASOPHILS % (AUTO) 0.7 %; EOSINOPHILS # (AUTO) 0.5 10^3/uL (0.0-0.7); EOSINOPHILS % (AUTO) 4.2 %; HGB - HEMOGLOBIN 9.8 g/dL (14.0-18.0); LYMPHOCYTES # (AUTO) 2.6 10^3/uL (1.5-3.5); LYMPHOCYTES % (AUTO) 22.7 %; MEAN CORPUSCULAR HEMOGLOBIN 23.7 pg (27.0-31.0); MEAN CORPUSCULAR HGB CONC 33.2 g/dL (32.0-36.0); MEAN CORPUSCULAR VOLUME 71.4 fL (80.0-94.0); MEAN PLATELET VOLUME 9.5 fL (7.4-11.4); MONOCYTES % (AUTO) 8.8 %; PLT - PLATELET COUNT 319 10^3/uL (130-450); RED BLOOD COUNT 4.13 10^6/uL (4.70-6.10); RED CELL DISTRIBUTION WIDTH 16.2 % (12.0-15.0); WHITE BLOOD COUNT 11.3 x10^3/uL (4.8-10.8)
[2020-04-30] MEDS ORDERED: metroNIDAZOLE 500 MG/100 ML 500 MG/100 ML BAG IV SCH (06:00)
[2020-04-30 06:04] LABS: CALCIUM 8.2 mg/dL (8.5-10.3); CREATININE 0.7 mg/dL (0.6-1.2)
[2020-04-30] MEDS: PRENATAL VITAMIN TABLET PO SCH (09:50)
[2020-04-30] MEDS: FAMOTIDINE 20 MG TABLET PO SCH ×2 (09:50→20:47)
[2020-04-30] MEDS: diltiaZEM CD 240 MG CAPSULE PO SCH (09:50)
[2020-04-30] MEDS: ASPIRIN EC 81 MG TABLET PO SCH (09:51)
[2020-04-30] MEDS: ENOXAPARIN 40 MG/0.4 ML SYRINGE SUBQ SCH (09:52)
[2020-04-30] MEDS: polyethylene glycoL 3350 17 GM PACKET PO SCH (09:52)
[2020-04-30] MEDS ORDERED: GADOBUTROL 10 MMOL/10 ML VIAL ONE (15:14)
[2020-04-30] MEDS ORDERED: GADOBUTROL 10 MMOL/10 ML VIAL IVP ONE (16:08)
--- NOTE | 2020-04-30 17:09 | MRI Report ---
PROCEDURE: MRCP W/WO INDICATIONS: abd pain, ?gallstone pancreatituis CONTRAST: IV CONTRAST: Gadavist ml: 9.5 TECHNIQUE: Coronal ultra fast SE through the abdomen, axial 2-D spoiled GE in- and [id number], and breath-hold T2 FSE with fat saturation through the biliary system and pancreas. Oblique coronal and axial thin- slice ultra fast SE, radial thick-slab ultra fast SE centered on the extrahepatic bile ducts. COMPARISON: None. Correlation made to CT abdomen pelvis 04/29/2020 FINDINGS: Image quality: Excellent. Pancreas and biliary system: Irregularity of the pancreatic margins and mild diffuse T2 hyperintensi ty. Trace peripancreatic fluid caudally. Medial uncinate process 1.2 cm cyst. No other visible intrap ancreatic or peripancreatic fluid collections. There is an intraparenchymal cyst in the left anterior lobe of the liver measuring 2.1 cm. Intra-intra and extrahepatic biliary tree are nondilated. Pancre atic duct has classic anatomy and is nondilated. There is normal enhancement throughout the pancreas. No stones are visible in the gallbladder. Gallbladder wall is normal thickness. Other solid organs: Normal liver size and signal. Multiple scattered simple cysts are present in bot h lobes of the liver, there is a small hemangioma measuring 2.1 cm in the dorsal left hepatic lobe, a nd a tiny hemangioma lateral right hepatic lobe. The spleen is normal size and there is trace perispl enic fluid, particularly caudally. No adrenal nodules. Both kidneys are normal in size, without hydr onephrosis. Nodes and vessels: No retroperitoneal or mesenteric adenopathy by size criteria. Aorta and inferior vena cava are normal in size. Bowel and peritoneum: Unenhanced bowel loops are normal in caliber. No free fluid. Lung bases: No basal pleural effusions. Heart size is normal. Bones and soft tissues: No ventral hernias. Bone marrow is of normal overall signal. IMPRESSION: 1. Findings of mild acute pancreatitis. No gallstones to suggest gallstone pancreatitis. 2. No dilatation of intra or extrahepatic biliary system. 3. Small hepatic hemangiomas and cysts. 4. 1.2 cm intrapancreatic uncinate process cyst, likely a pseudocyst. Follow-up in 6 months is recomm ended. Reviewed by: Josie England MD on 04/30/2020 5:07 PM PDT Approved by: Josie England MD on 04/30/2020 5:07 PM PDT Station ID: [id number]
--- NOTE | 2020-04-30 21:51 | PROVIDER PROGRESS NOTE ---
Assessment/Plan - Problem List (1) Atrial fibrillation with RVR Assessment/Plan: Heart rate improved. It stays around 100-110 Patient is on diltiazem CD 300 mg. We will continue to monitor. CHADS2 score is 1. On baby aspirin Anticipated discharge home tomorrow (2) Pancreatitis, acute Qualifiers: Pancreatitis type: unspecified pancreatitis type Acute pancreatitis complication: unspecified Qualified Code(s): K85.90 - Acute pancreatitis without necrosis or infection, unspecified Assessment/Plan: Improving. Patient's pain is only mild at the moment. MRCP done today was negative for any gallstones. Patient's white blood cell count has been coming down nicely over the past few days. Patient was on Cipro and Flagyl which was discontinued today. Anticipated discharge tomorrow. (3) Alcohol abuse Assessment/Plan: Patient did not exhibit any alcohol withdrawal symptoms during this hospitalization. (4) Leukocytosis Assessment/Plan: Likely reactive. Patient's white blood cell count steadily improved over his hospital stay. Today it was 11.8. Antibiotics were discontinued. (5) HTN (hypertension) Assessment/Plan: On diltiazem (6) Rheumatoid arthritis Assessment/Plan: Will resume sulfasalazine upon discharge. - Current Meds Current Meds: Current Medications Generic Name Dose Route Start Last Admin Trade Name Freq PRN Reason Stop Dose Admin Acetaminophen 650 mg 04/28/20 08:19 04/30/20 16:30 Tylenol PO 650 mg Q4HR PRN Administration Pain or Fever > 38C (100.4F) Aspirin 81 mg 04/29/20 14:24 04/30/20 09:51 Ecotrin PO 81 mg DAILY YANI Administration Enoxaparin Sodium 40 mg 04/27/20 09:00 04/30/20 09:52 Lovenox SUBQ 40 mg DAILY YANI Administration Famotidine 20 mg 04/28/20 21:00 04/30/20 20:47 Pepcid PO 20 mg BID YANI Administration Hydromorphone HCl 0.5 mg 04/26/20 19:40 04/28/20 08:55 Dilaudid Inj Syringe IVP 0.5 mg Q2H PRN Administration Pain 8 to 10 Polyethylene Glycol 17 gm 04/28/20 10:00 04/30/20 09:52 Miralax PO Not Given DAILY YAIN Multivit/Folic Acid/Iron 1 tab 04/27/20 09:00 04/30/20 09:50 Trinatal Rx 1 PO 1 tab DAILY YANI Administration Sodium Chloride 10 ml 04/26/20 19:40 04/28/20 08:59 Normal Saline Flush 0.9% IVP 10 ml PRN PRN Administration NEEDED PER PROVIDER ORDERS Sodium Chloride 10 ml 04/27/20 01:00 04/30/20 20:48 Normal Saline Flush 0.9% IVP 10 ml 0100,0900,1700 YANI Administration - Lab Result Fish Bone Diagrams: 04/30/20 05:40 04/30/20 05:40 - Additional Planning My Orders: My Active Orders 05/01/20 05:00 BMP - BASIC METABOLIC PANEL [CHEM] DAILYLAB CBC - COMP BLD CT W/AUTO DIFF [HEME] DAILYLAB Subjective - Subjective Patient Reports: Other (Patient seen and examined today. He was sound asleep at the time of exam. He denied chest pain, dyspnea. He reported mild abdominal pain. He denied nausea, vomiting, fever or chills. The rest of his history is unremarkable.) Objective Vital Signs: Vital Signs - 24 hr 04/30/20 04/30/20 04/30/20 00:59 04:08 09:00 Temperature 36.8 C 37.2 C 37.2 C Heart Rate [ Brachial] Heart Rate [ 99 101 H 114 H Monitoring electrodes] Respiratory 20 Rate Blood Pressure [Left Brachial artery] Blood Pressure 146/85 H 118/77 125/82 H [Right Brachial artery] O2 Saturation 100 100 100 04/30/20 04/30/20 04/30/20 12:57 16:09 20:39 Temperature 37.1 C 37.1 C 36.9 C Heart Rate [ 118 H 81 Brachial] Heart Rate [ 79 Monitoring electrodes] Respiratory 18 16 14 Rate Blood Pressure 127/82 H [Left Brachial artery] Blood Pressure 133/79 H 133/87 H [Right Brachial artery] O2 Saturation 100 100 100 Oxygen O2 Source Room air I&O (Last 24 Hrs): Intake and Output Totals x24h 04/28/20 04/29/20 04/30/20 23:59 23:59 23:59 Intake Total 3983.199 2789.167 1268 Output Total 2125 1950 1750 Balance 1858.199 839.167 -482 General: Alert, Oriented x3, Mild distress HEENT: PERRLA, EOMI Neck: Supple, No JVD Neuro: Alert, Oriented Times 3 Cardiovascular: Other (Irregularly irregular rhythm. Mildly tachycardic.) Respiratory: Chest non-tender, No respiratory distress, Breath sounds nml Abdomen: Normal bowel sounds, Soft Extremities: No clubbing, No cyanosis, No edema - Results Results: Laboratory Results WBC 11.3 x10^3/uL (4.8-10.8) H 04/30/20 05:40 RBC 4.13 10^6/uL (4.70-6.10) L 04/30/20 05:40 Hgb 9.8 g/dL (14.0-18.0) L 04/30/20 05:40 Hct 29.5 % (42.0-52.0) L 04/30/20 05:40 MCV 71.4 fL (80.0-94.0) L 04/30/20 05:40 MCH 23.7 pg (27.0-31.0) L 04/30/20 05:40 MCHC 33.2 g/dL (32.0-36.0) 04/30/20 05:40 RDW 16.2 % (12.0-15.0) H 04/30/20 05:40 Plt Count 319 10^3/uL (130-450) 04/30/20 05:40 MPV 9.5 fL (7.4-11.4) 04/30/20 05:40 Neut # (Auto) 7.0 10^3/uL (1.5-6.6) H 04/30/20 05:40 Lymph # (Auto) 2.6 10^3/uL (1.5-3.5) 04/30/20 05:40 Rich # (Auto) 1.0 10^3/uL (0.0-1.0) 04/30/20 05:40 Eos # (Auto) 0.5 10^3/uL (0.0-0.7) 04/30/20 05:40 Baso # (Auto) 0.1 10^3/uL (0.0-0.1) 04/30/20 05:40 Absolute Nucleated RBC 0.00 x10^3/uL 04/30/20 05:40 Band Neuts % (Manual) Not Reportable 04/26/20 16:35 Abnorm Lymph % (Manual) Not Reportable 04/26/20 16:35 Nucleated RBC % 0.0 /100WBC 04/30/20 05:40 Neutrophils # (Manual) Not Reportable 04/26/20 16:35 Lymphocytes # (Manual) Not Reportable 04/26/20 16:35 Monocytes # (Manual) Not Reportable 04/26/20 16:35 Eosinophils # (Manual) Not Reportable 04/26/20 16:35 Basophils # (Manual) Not Reportable 04/26/20 16:35 Differential Comment MANUAL=AUTO DIFF 04/26/20 16:35 Manual Slide Review Indicated 04/26/20 16:35 Platelet Estimate NORMAL (130-450,000) (NORMAL) 04/26/20 16:35 Platelet Morphology NORMAL APPEARANCE (NORMAL) 04/26/20 16:35 RBC Morph Micro Appear NORMAL APPEARANCE (NORMAL) 04/26/20 16:35 Sodium 131 mmol/L (135-145) L 04/30/20 05:40 Potassium 3.5 mmol/L (3.5-5.0) 04/30/20 05:40 Chloride 103 mmol/L (101-111) 04/30/20 05:40 Carbon Dioxide 20 mmol/L (21-32) L 04/30/20 05:40 Anion Gap 8.0 (6-13) 04/30/20 05:40 BUN 5 mg/dL (6-20) L 04/30/20 05:40 Creatinine 0.7 mg/dL (0.6-1.2) 04/30/20 05:40 Estimated GFR (MDRD) 139 (>89) 04/30/20 05:40 Glucose 112 mg/dL (70-100) H 04/30/20 05:40 Lactic Acid 1.2 mmol/L (0.5-2.2) 04/26/20 20:49 Calcium 8.2 mg/dL (8.5-10.3) L 04/30/20 05:40 Phosphorus 2.8 mg/dL (2.5-4.6) 04/27/20 04:15 Magnesium 1.5 mg/dL (1.7-2.8) L 04/28/20 05:25 Total Bilirubin 1.0 mg/dL (0.2-1.0) 04/28/20 05:22 Direct Bilirubin 0.4 mg/dL (0.1-0.5) 04/28/20 05:22 AST 10 IU/L (10-42) 04/28/20 05:22 ALT 10 IU/L (10-60) 04/28/20 05:22 Alkaline Phosphatase 49 IU/L (42-121) 04/28/20 05:22 Total Protein 4.8 g/dL (6.7-8.2) L 04/28/20 05:22 Albumin 2.2 g/dL (3.2-5.5) L 04/28/20 05:22 Globulin 2.7 g/dL (2.1-4.2) 04/28/20 05:22 Albumin/Globulin Ratio 0.8 (1.0-2.2) L 04/26/20 19:58 Triglycerides 69 mg/dL (-149) 04/27/20 04:15 Cholesterol 105 mg/dL (-199) 04/27/20 04:15 LDL Cholesterol, Calc 55 mg/dL (-129) 04/27/20 04:15 VLDL Cholesterol 14 mg/dL 04/27/20 04:15 HDL Cholesterol 36 mg/dL (60-) L 04/27/20 04:15 LDL/HDL Ratio 1.5 (<3.6) 04/27/20 04:15 Cholesterol/HDL Ratio 2.9 (<5.0) 04/27/20 04:15 Lipase 64 U/L (22-51) H 04/29/20 05:55 TSH 1.31 uIU/mL (0.34-5.60) 04/29/20 05:55 Urine Color DARK YELLOW 04/26/20 17:15 Urine Clarity CLEAR (CLEAR) 04/26/20 17:15 Urine pH 6.0 PH (5.0-7.5) 04/26/20 17:15 Ur Specific [place] 1.025 (1.002-1.030) 04/26/20 17:15 Urine Protein TRACE mg/dL (NEGATIVE) 04/26/20 17:15 Urine Glucose (UA) NEGATIVE mg/dL (NEGATIVE) 04/26/20 17:15 Urine Ketones 15 mg/dL (NEGATIVE) H 04/26/20 17:15 Urine Occult Blood NEGATIVE (NEGATIVE) 04/26/20 17:15 Urine Nitrite NEGATIVE (NEGATIVE) 04/26/20 17:15 Urine Bilirubin NEGATIVE (NEGATIVE) 04/26/20 17:15 Urine Urobilinogen 1 (NORMAL) E.U./dL (NORMAL) 04/26/20 17:15 Ur Leukocyte Esterase NEGATIVE (NEGATIVE) 04/26/20 17:15 Ur Microscopic Review NOT INDICATED 04/26/20 17:15 Urine Culture Comments NOT INDICATED 04/26/20 17:15 Nasal Screen MRSA (PCR) NEGATIVE (NEGATIVE) 04/26/20 20:35 Ethyl Alcohol < 5.0 mg/dL 04/26/20 16:35 ABX Reporting Has patient been on IV antibiotics over the past 48 hours?: Yes
[2020-05-01] MEDS: SODIUM CHLORIDE FLUSH 0.9% 10 ML SYRINGE IVP SCH ×2 (06:52→08:15)
--- NOTE | 2020-05-01 07:51 | PROVIDER PROGRESS NOTE ---
Progress Note Subjective No acute complaints. Pain overall improved. Continues with bowel function.Status post MRCP see results below. Objective Afebrile hemodynamically acceptable General Appearance: positive: No acute distress Eyes Bilateral: positive: Normal inspection ENT: positive: ENT inspection nml Neck: positive: Nml inspection Respiratory: positive: Chest non-tender, No respiratory distress, Breath sounds nml. negative: Wheezes, Rales, Rhonchi Cardiovascular: positive: Regular rate & rhythm Abdomen: positive: No distention, Other. negative: Guarding, Rebound Extremities: positive: Non-tender, Full ROM, Nml appearance Neurologic/Psychiatric: positive: Oriented x3, CN's nml (2-12) Impression MRCP: 1. Findings of mild acute pancreatitis no gallstones to suggest gallstone pancreatitis. 2. No dilation of intra-or extrahepatic biliary system. 3. Small hepatic hemangiomas and cysts. 4. 1.2 cm intrahepatic uncinate process cyst likely pseudocyst. Follow-up in 6 months is recommended. Impression/Plan 60-year-old male with history of rheumatoid arthritis on steroids as well as biologic therapy for whom pancreatitis and concerns for gallstones were noted on repeat imaging. MRCP is without these concerning features. Pseudocyst is in deed noted and should be followed up with routine imaging however no indication for acute surgical procedure or intervention at this time. Patient needs simply to continue with follow-up with rheumatology, age-appropriate screening based on historic pathology and family history. And again he will need repeat imaging likely MRI for the uncinate process pseudocyst which is likely a consequence of recurrent pancreatitis most probable consequence of alcohol use and abuse.
[2020-05-01] MEDS: FAMOTIDINE 20 MG TABLET PO SCH (08:06)
[2020-05-01] MEDS: ACETAMINOPHEN 325 MG TABLET PO PRN (08:06)
[2020-05-01] MEDS: ASPIRIN EC 81 MG TABLET PO SCH (08:07)
[2020-05-01] MEDS: PRENATAL VITAMIN TABLET PO SCH (08:07)
[2020-05-01] MEDS: polyethylene glycoL 3350 17 GM PACKET PO SCH (08:08)
[2020-05-01] MEDS: ENOXAPARIN 40 MG/0.4 ML SYRINGE SUBQ SCH (08:08)
--- NOTE | 2020-05-01 08:10 | Discharge Plan ---
Discharge Plan Problem Reviewed?: Yes Disposition: Home, Self Care Condition: Stable Prescriptions: diltiaZEM CD [Cardizem Cd] 120 mg PO DAILY #30 capsule diltiaZEM CD [Cardizem Cd] 180 mg PO DAILY #30 capsule Diet: Soft Activity Restrictions: Activity as Tolerated Instruction Topics: Pancreatitis Health Concerns: You were admitted with abdominal pain caused by acute pancreatitis. This was probably caused by alcohol use that was excessive. You needed bowel rest in order to rest the pancreas. At home, you should also eat a soft and easy to digest diet. You can advance your diet to a regular diet as you continue to feel better. We have increased the dose of your diltiazem to help control your heart rate because of the atrial fibrillation. All prescriptions were sent electronically to your pharmacy. You were seen by social director and given resources to help with managing alcohol abuse. Please see your PCP in the next 5 to 7 days for hospital follow-up. Plan of Treatment: As above. Care Goals: Improvement in symptoms and stabilization are the goals. Assessment: Patient understands, he was given written instructions at discharge. Additional Instructions or Follow Up instructions: Please follow up with your primary care provider in one week. No Smoking: If you smoke, Please STOP! Call for help. Follow-up with: Key Bronson ARNP [Primary Care Provider] -
[2020-05-01 08:11] LABS: BASOPHILS # (AUTO) 0.1 10^3/uL (0.0-0.1); BASOPHILS % (AUTO) 0.8 %; EOSINOPHILS # (AUTO) 0.5 10^3/uL (0.0-0.7); EOSINOPHILS % (AUTO) 3.9 %; HGB - HEMOGLOBIN 10.2 g/dL (14.0-18.0); LYMPHOCYTES # (AUTO) 2.4 10^3/uL (1.5-3.5); LYMPHOCYTES % (AUTO) 20.3 %; MEAN CORPUSCULAR HEMOGLOBIN 23.6 pg (27.0-31.0); MEAN CORPUSCULAR HGB CONC 33.1 g/dL (32.0-36.0); MEAN CORPUSCULAR VOLUME 71.3 fL (80.0-94.0); MONOCYTES # (AUTO) 0.9 10^3/uL (0.0-1.0); MONOCYTES % (AUTO) 7.5 %; NEUTROPHILS # (AUTO) 7.7 10^3/uL (1.5-6.6); NEUTROPHILS % (AUTO) 66.4 %; PLT - PLATELET COUNT 373 10^3/uL (130-450); RED BLOOD COUNT 4.32 10^6/uL (4.70-6.10); RED CELL DISTRIBUTION WIDTH 16.4 % (12.0-15.0); WHITE BLOOD COUNT 11.7 x10^3/uL (4.8-10.8)
[2020-05-01 08:14] VITALS: BP 124/80
--- NOTE | 2020-05-01 08:14 | DISCHARGE SUMMARY ---
"Discharge Summary Admit Date: 04/26/20 Discharge Date: 05/01/20 Discharging Provider: Cam Torres Primary Care Provider: Key Bronson Code Status: Attempt Resuscitation Condition at Discharge: Stable Discharge Disposition: 01 Home, Self Care - DIAGNOSES Admission Diagnoses: Atrial fibrillation with RVR Acute pancreatitis Alcohol abuse Leukocytosis Hypertension Rheumatoid arthritis Discharge Diagnoses with Status of Each Condition: Atrial fibrillation with rapid ventricular response - resolved. Acute pancreatitis - improved. Alcohol abuse - stable. Leukocytosis - improved. Rheumatoid arthritis - stable. Hypertension - stable. - HPI History of Present Illness: H&P per Dr. Matos: Patient is a 60-year-old male with history of atrial fibrillation, rheumatoid arthritis and alcohol abuse who presented to the ED with complaint of epigastric pain. This started 4 days ago. He described it as an ache with occasional sharpness. He rated the pain 5 out of 10 currently. At onset it was 10 out of 10 scale. There is no radiation of the pain. He has been having chills and a low-grade fever. He denied dyspnea, chest pain, nausea or vomiting. As a result of the pain he has not been taking anything by mouth. As a result he has not been taking his medications which included diltiazem. He just attempted taking it yesterday. As a result upon presentation he was in an irregularly irregular rhythm with a heart rate as high as the 170s. He was started on diltiazem drip in the emergency room and presented for admission. Work-up in the ED included a CT of the abdomen pelvis which showed pancreatitis with some peripancreatic edema. It also reported some free fluid in the pelvic floor. - CONSULTS | PROCEDURES Consultations: General Surgery Procedures: CT of abdomen pelvis on April 26 showed a normal appendix with a mild amount inflammatory changes seen on the pancreas which may be related to pancreatitis. This is improved compared to 2018. There is also generalized inflammatory changes within the midportion of the mesentery, with fatty stranding. This is most typically idiopathic and related to chronic inflammation. This is new compared to 2018. A mild amount of free fluid is seen layering within the pelvis, which is always abnormal for male. Repeat CT of the abdomen and pelvis on April 29 showed acute pancreatitis, moderately severe, without peripancreatic pseudocyst formation or evidence of adjacent abscess. Calcified gallstones are not found but there does appear to be likelihood of internal debris or noncalcified gallstones in the gallbladder lumen. Gallbladder ultrasound is recommended to more accurately assess this finding of the cyst and establish the potential for gallstone passage as cause of current pancreatitis. There is no free fluid or air. ERCP on April 30 showed findings of mild acute pancreatitis. No gallstones suggest gallstone pancreatitis. No dilation of intra-or extrahepatic biliary system. Small hepatic hemangiomas and cysts. 1.2 cm intra-pancreatic uncinate process cyst, likely a pseudocyst. Follow-up in 6 months is recommended - HOSPITAL COURSE Hospital Course: He was admitted to the intensive care unit for atrial fibrillation with RVR and acute pancreatitis. He was started on a diltiazem drip. He was made n.p.o. given the pancreatitis was treated with IV fluids and pain control. His white c ount was also elevated at 18.6 on admission he had a low-grade fever so blood cultures were obtained and he was started on ciprofloxacin and Flagyl empirically given there was some free fluid in the pelvic floor. General surgery was also consulted given the free fluid. Surgery recommended repeating a CT to assure there is no worsening of the fluid and a repeat CT showed no fluid. CT did show the pancreatitis was moderate to severe and there was concern for possible gallstone. Given this, MRCP was obtained which showed mild pancreatitis and no evidence of gallstones. The patient's abdominal pain improved and his diet was advanced as tolerated. He was weaned off of the diltiazem drip and started on oral diltiazem. An echo was obtained which showed a preserved ejection fraction. Ciprofloxacin and Flagyl will discontinued after 3 days given he remained afebrile with an improving white count and there was no obvious source of infection. Patient's diet continue to be advanced and he tolerated well. He was ultimately discharged on 300 mg of diltiazem daily which was increased from 240 mg he was taking at home. He was also discharged on baby aspirin given the atrial fibrillation. There were no other changes made to his medications. He was encouraged to follow-up with his primary care provider in 1 to 2 weeks. We again discussed the importance of alcohol cessation given he likely had pancreatitis due to alcohol abuse. - ALLERGIES Allergies/Adverse Reactions: Allergies Allergy/AdvReac Type Severity Reaction Status Date / Time amoxicillin Allergy Respiratory Verified 04/26/20 15:31 - MEDICATIONS Home Medications: Ambulatory Orders Medication Instructions Recorded Confirmed Aspirin 81 mg PO DAILY 04/27/20 04/27/20 Celecoxib [Celebrex] 200 mg PO BIDWM 04/27/20 04/27/20 Lisinopril [Zestril] 40 mg PO DAILY 04/27/20 04/27/20 predniSONE [Prednisone] 10 mg PO DAILY 04/27/20 04/27/20 diltiaZEM CD [Cardizem Cd] 120 mg PO DAILY #30 capsule 05/01/20 diltiaZEM CD [Cardizem Cd] 180 mg PO DAILY #30 capsule 05/01/20 - PHYSICAL EXAM AT DISCHARGE General Appearance: positive: No acute distress, Alert Eyes Bilateral: positive: Normal inspection ENT: positive: ENT inspection nml Neck: positive: Nml inspection Respiratory: positive: No respiratory distress. negative: Wheezes, Rales Cardiovascular: positive: No murmur, Irregularly irregular. negative: Tachycardia, Bradycardia, Systolic murmur Abdomen: positive: Nml bowel sounds, Tenderness (Mild epigastric tenderness.). negative: Guarding, Rebound Skin: positive: Warm, Dry Extremities: positive: Full ROM, No pedal edema Neurologic/Psychiatric: positive: Oriented x3, Motor nml Physical Exam Other/Comments: Vital Signs (72 hours) 04/29/20 04/29/20 04/30/20 17:00 20:37 00:59 Temperature 37.3 C 37.2 C 36.8 C Heart Rate [ Brachial] Heart Rate [ 71 79 99 Monitoring electrodes] Respiratory 20 20 Rate Blood Pressure [Left Brachial artery] Blood Pressure 144/90 H 120/89 H 146/85 H [Right Brachial artery] O2 Saturation 100 99 100 04/30/20 04/30/20 04/30/20 04:08 09:00 12:57 Temperature 37.2 C 37.2 C 37.1 C Heart Rate [ Brachial] Heart Rate [ 101 H 114 H 79 Monitoring electrodes] Respiratory 20 18 Rate Blood Pressure 127/82 H [Left Brachial artery] Blood Pressure 118/77 125/82 H [Right Brachial artery] O2 Saturation 100 100 100 04/30/20 04/30/20 05/01/20 16:09 20:39 00:37 Temperature 37.1 C 36.9 C 37.2 C Heart Rate [ 118 H 81 111 H Brachial] Heart Rate [ Monitoring electrodes] Respiratory 16 14 16 Rate Blood Pressure [Left Brachial artery] Blood Pressure 133/79 H 133/87 H 122/77 [Right Brachial artery] O2 Saturation 100 100 100 05/01/20 08:13 Temperature 36.8 C Heart Rate [ 70 Brachial] Heart Rate [ 70 Monitoring electrodes] Respiratory 18 Rate Blood Pressure [Left Brachial artery] Blood Pressure 124/80 [Right Brachial artery] O2 Saturation 100 - LABS Result Diagrams: 05/01/20 08:05 05/01/20 08:05 - DIAGNOSTIC IMAGING Diagnostic Imaging Results: Final report reviewed - FOLLOW UP Follow Up: He was asked to follow-up with his primary care provider in 1 to 2 weeks. - TIME SPENT Time Spent in Discharge (Minutes): 33"
[2020-05-01 08:19] LABS: CALCIUM 8.5 mg/dL (8.5-10.3); CREATININE 0.7 mg/dL (0.6-1.2)
[2020-05-01] MEDS ORDERED: diltiaZEM CD 120 MG CAPSULE PO SCH (09:00)
[2020-05-01] MEDS ORDERED: predniSONE 10 MG TABLET PO SCH (09:00)
[2020-05-01] MEDS ORDERED: diltiaZEM CD 180 MG CAPSULE PO SCH (09:00)
[2020-05-01] MEDS ORDERED: lisinopriL 20 MG TABLET PO SCH (09:00)
== END 2020-05-01 10:20 | disposition home or self-care (01) | DRG 308 ==
LOC: ED 15:15 → ICU 19:40 → MS2 04-27 20:45
PROVIDERS: ADMIT Internal Medicine; ATTEND Internal Medicine
DX: I48.0 Paroxysmal atrial fibrillation (principal); K85.90 Acute pancreatitis without necrosis or infection, unspecified; E87.1 Hypo-osmolality and hyponatremia; F10.10 Alcohol abuse, uncomplicated; D72.829 Elevated white blood cell count, unspecified; M06.9 Rheumatoid arthritis, unspecified; I10 Essential (primary) hypertension; T46.1X6A Underdosing of calcium-channel blockers, initial encounter; Z91.128 Patient's intentional underdosing of medication regimen for other reason; D18.09 Hemangioma of other sites; G62.9 Polyneuropathy, unspecified; F17.290 Nicotine dependence, other tobacco product, uncomplicated; Z79.52 Long term (current) use of systemic steroids; Z79.899 Other long term (current) drug therapy; D64.9 Anemia, unspecified; E87.6 Hypokalemia
CPT/HCPCS: 36415; 74176; 74177; 74183; 80048; 80053; 80061; 80076; 80320; 81003; 83605; 83690; 83735; 84100; 84443; 85025; 87040; 87150; 93005; 93306; 96365; 96375; 99284; 99285; A9270; A9585; J1170; J1650; J3411; Q9967; 81001; 83721; 87086

== ENCOUNTER 2020-05-07 11:44 | Outpatient (CLI) | payer OTHER, MEDICARE ==
[2020-05-07 15:26] LABS: BASOPHILS # (AUTO) 0.1 10^3/uL (0.0-0.1); BASOPHILS % (AUTO) 0.4 %; EOSINOPHILS # (AUTO) 0.2 10^3/uL (0.0-0.7); HGB - HEMOGLOBIN 10.1 g/dL (14.0-18.0); LYMPHOCYTES # (AUTO) 1.6 10^3/uL (1.5-3.5); LYMPHOCYTES % (AUTO) 9.9 %; MEAN CORPUSCULAR HEMOGLOBIN 23.7 pg (27.0-31.0); MEAN CORPUSCULAR HGB CONC 32.7 g/dL (32.0-36.0); MEAN CORPUSCULAR VOLUME 72.5 fL (80.0-94.0); MEAN PLATELET VOLUME 9.4 fL (7.4-11.4); MONOCYTES # (AUTO) 1.1 10^3/uL (0.0-1.0); NEUTROPHILS # (AUTO) 12.6 10^3/uL (1.5-6.6); NEUTROPHILS % (AUTO) 80.2 %; PLT - PLATELET COUNT 698 10^3/uL (130-450); RED BLOOD COUNT 4.26 10^6/uL (4.70-6.10); RED CELL DISTRIBUTION WIDTH 16.6 % (12.0-15.0); WHITE BLOOD COUNT 15.8 x10^3/uL (4.8-10.8)
[2020-05-07 15:53] LABS: ALBUMIN/GLOBULIN RATIO 0.8 (1.0-2.2); BILIRUBIN,TOTAL 0.7 mg/dL (0.2-1.0); CALCIUM 8.9 mg/dL (8.5-10.3); CREATININE 1.1 mg/dL (0.6-1.2); CRP - C-REACTIVE PROTEIN 9.5 mg/dL (0-1.0)
[2020-05-07 15:59] LABS: FERRITIN 197.7 ng/mL (23.9-336.2)
--- NOTE | 2020-05-07 16:01 | XRAY Report ---
PROCEDURE: Shoulder 3 View LT INDICATIONS: PAIN OF LEFT SHOULDER JOINT TECHNIQUE: 3 views of the shoulder were acquired. COMPARISON: None. FINDINGS: Bones: No acute fractures or dislocations. Moderate hypertrophic osteoarthritic changes of the left acromioclavicular joint with undersurface irregularity. There is narrowing of the subacromial space. No suspicious bony lesions. Visualized ribs appear intact. Soft tissues: No suspicious soft tissue calcifications. IMPRESSION: Moderate hypertrophic osteoarthrosis of the left acromioclavicular joint with narrowing of the subacromial space. Reviewed by: Asim Cam MD on 05/07/2020 4:00 PM PDT Approved by: Asim Cam MD on 05/07/2020 4:00 PM PDT Station ID: [id number]
[2020-05-07 16:03] LABS: FOLATE 5.57 ng/mL (5.90 - >24.8)
== END 2020-05-07 11:45 | disposition home or self-care (01) ==
LOC: DI.S 11:44
PROVIDERS: ATTEND Registered Nurse
DX: M19.012 Primary osteoarthritis, left shoulder (principal); D64.9 Anemia, unspecified; M06.9 Rheumatoid arthritis, unspecified
CPT/HCPCS: 36415; 80053; 82607; 82728; 82746; 83540; 84466; 85025; 86140

== ENCOUNTER 2020-06-18 09:05 | Outpatient (CLI) | payer MEDICARE ==
--- NOTE | 2020-06-18 13:06 | CT Report ---
PROCEDURE: LOWER EXTREMITY WO - LT INDICATIONS: POST LEFT TRIPLE ARTHRODESIS TECHNIQUE: Noncontrast 3 mm axial sections acquired of the left foot, with coronal and sagittal reformats. COMPARISON: Foot radiographs dated 03/08/2014 FINDINGS: Image quality: Excellent. Bones: Postsurgical changes are seen from fixation of the posterior subtalar facet with 2 cannulated partially threaded screws and fixation of the talonavicular and calcaneocuboid joints with metallic wyatt. The metallic hardware is intact without signs of loosening. There is partial osseous fusion (approximately 60% of the cross-sectional area) across the posterior subtalar facet with continued vi sualization of the joint line at the lateral aspect. The anterior and middle subtalar facets are stil l visualized. At the talonavicular joint, there may be partial osseous fusion at the inferomedial portion (less elizabeth n 20%), although the majority of the joint line is still visualized. Degenerative spurring is seen at the dorsal aspect of the talonavicular joint. At the calcaneocuboid joint, osseous material is seen bridging the majority of the joint line (approx imately 80% of the cross-sectional area). There is generalized osteopenia. No acute fracture or dislocation is seen. Multifocal degenerative ch anges are seen throughout the midfoot and hindfoot. A prior medial cuneiform lengthening osteotomy is noted, which is filled with osseous material. A plantar calcaneal spur is present. Soft tissues: There is generalized fatty infiltration of the intrinsic foot musculature. Mild nonspe cific subcutaneous edema is seen at the lateral aspect of the foot and ankle. IMPRESSION: Postsurgical changes are seen from triple arthrodesis. There is partial osseous fusion at the posteri or subtalar facet and the calcaneocuboid articulation as described above with only mild osseous bridg ing at the talonavicular articulation. Reviewed by: Brandin Epps MD on 06/18/2020 1:04 PM PST Approved by: Brandin Epps MD on 06/18/2020 1:04 PM PST Station ID: [id number]
== END 2020-06-18 09:06 | disposition home or self-care (01) ==
LOC: DI 09:05
PROVIDERS: ATTEND Orthopaedic Surgery
DX: Z47.89 Encounter for other orthopedic aftercare (principal); Z98.890 Other specified postprocedural states

== ENCOUNTER 2020-08-13 16:01 | Outpatient (CLI) | payer OTHER, MEDICARE ==
[2020-08-13 20:05] LABS: BASOPHILS % (AUTO) 0.4 %; EOSINOPHILS % (AUTO) 0.2 %; HGB - HEMOGLOBIN 8.8 g/dL (14.0-18.0); LYMPHOCYTES # (AUTO) 2.2 10^3/uL (1.5-3.5); LYMPHOCYTES % (AUTO) 19.9 %; MEAN CORPUSCULAR HEMOGLOBIN 22.3 pg (27.0-31.0); MEAN CORPUSCULAR HGB CONC 31.4 g/dL (32.0-36.0); MEAN CORPUSCULAR VOLUME 71.1 fL (80.0-94.0); MONOCYTES # (AUTO) 0.8 10^3/uL (0.0-1.0); MONOCYTES % (AUTO) 7.3 %; NEUTROPHILS % (AUTO) 71.6 %; PLT - PLATELET COUNT 430 10^3/uL (130-450); RED BLOOD COUNT 3.94 10^6/uL (4.70-6.10); RED CELL DISTRIBUTION WIDTH 19.1 % (12.0-15.0); WHITE BLOOD COUNT 11.2 x10^3/uL (4.8-10.8)
--- OUTSIDE RECORDS SUMMARY | 2020-08-14 04:51 | EXTERNAL MEDICAL SUMMARY RPT | Continuity of Care Document ---
:1960 Demographics Phone Unavailable Preferred Language Unknown Marital Status Unknown Je[employer] Affiliation Unknown Race Unknown Ethnic Group Unknown Author Organization [facility] Address [address] [phone] Phone Care Team Providers Name Role Phone Audie Unavailable Unavailable SPRING Unavailable Unavailable Zakiya Unavailable Unavailable Werve Unavailable Unavailable Problems date description facility 2014-12-10 11:58 CELLULITIS OF FACE [facility] 2014-12-12 09:01 CELLULITIS OF FACE [facility] 2014-12-14 10:17 CELLULITIS NOS [facility] 2014-12-17 12:00 HYPERTENSION NOS [facility] 2014-12-17 12:00 CELLULITIS NOS [facility] 2014-12-26 09:12 RHEUMATOID ARTHRITIS [facility] 2014-12-26 09:37 CELLULITIS OF FACE [facility] 2015-03-13 09:21 JOINT PAIN-ANKLE [facility] 2015-03-13 09:21 ENCOUNTER FOR REMOVAL OF SUTURES [facility] 2015-03-13 09:57 JOINT PAIN-ANKLE [facility] 2015-03-13 09:57 FLAT FOOT [facility] 2015-04-30 10:37 TESTICULAR HYPOFUNC NEC [facility] 2016-04-28 09:51 ENCNTR FOR GENERAL ADULT MEDICAL [facility] EXAM W/O ABNORMAL FINDINGS 2016-05-04 12:14 NICOTINE DEPENDENCE, UNSPECIFIED, [facility] UNCOMPLICATED 2016-05-04 12:14 ESSENTIAL (PRIMARY) HYPERTENSION [facility] 2016-05-04 12:14 RECTAL ABSCESS [facility] 2016-05-04 12:14 OTHER SPECIFIED DISEASES OF ANUS [facility] AND RECTUM 2016-05-04 12:14 UNSPECIFIED HEMORRHOIDS [facility] 2016-05-04 12:14 RHEUMATOID ARTHRITIS, UNSPECIFIED [facility] 2016-10-27 09:49 RHEU ARTHRITIS W RHEU FACTOR MULT [facility] SITE W/O ORG/SYS INVOLV 2016-10-27 09:49 ENCOUNTER FOR THERAPEUTIC DRUG [facility] LEVEL MONITORING 2017-09-30 14:51 NICOTINE DEPENDENCE, UNSPECIFIED, [facility] UNCOMPLICATED 2017-09-30 14:51 ESSENTIAL (PRIMARY) HYPERTENSION [facility] 2017-09-30 14:51 PAROXYSMAL ATRIAL FIBRILLATION [facility] 2017-09-30 14:51 RHEUMATOID ARTHRITIS, UNSPECIFIED [facility] 2017-09-30 14:51 DIZZINESS AND GIDDINESS [facility] 2017-09-30 14:51 PRSNL HX OF TIA (TIA), AND CEREB [facility] INFRC W/O RESID DEFICITS 2017-10-16 17:24 NICOTINE DEPENDENCE, UNSPECIFIED, [facility] UNCOMPLICATED 2017-10-16 17:24 ESSENTIAL (PRIMARY) HYPERTENSION [facility] 2017-10-16 17:24 PAROXYSMAL ATRIAL FIBRILLATION [facility] 2017-10-16 17:24 RHEUMATOID ARTHRITIS, UNSPECIFIED [facility] 2017-10-16 17:24 PALPITATIONS [facility] 2017-10-16 17:24 PRSNL HX OF TIA (TIA), AND CEREB [facility] INFRC W/O RESID DEFICITS 2017-10-18 08:30 PAROXYSMAL ATRIAL FIBRILLATION [facility] 2017-10-18 08:30 CARDIOMEGALY [facility] 2017-10-18 08:30 THORACIC AORTIC ECTASIA [facility] 2018-05-30 00:23 ANEMIA, UNSPECIFIED [facility] 2018-05-30 00:23 HYPOKALEMIA [facility] 2018-05-30 00:23 ALCOHOL ABUSE, UNCOMPLICATED [facility] 2018-05-30 00:23 NICOTINE DEPENDENCE, CIGARETTES, [facility] UNCOMPLICATED 2018-05-30 00:23 POLYNE[facility]OPATHY, [facility]PECIFIED [facility] 2018-05-30 00:23 ESSENTIAL (PRIMARY) HYPERTENSION [facility] 2018-05-30 00:23 PAROXYSMAL ATRIAL FIBRILLATION [facility] 2018-05-30 00:23 PNEUMONIA, UNSPECIFIED ORGANISM [facility] 2018-05-30 00:23 UNSPECIFIED HEMORRHOIDS [facility] 2018-05-30 00:23 ALCOHOL INDUCED ACUTE PANCREATITIS [facility] WITHOUT NECROSIS OR INFCT 2018-05-30 00:23 RHEUMATOID ARTHRITIS, UNSPECIFIED [facility] 2018-05-30 00:23 ACUTE KIDNEY FAILURE, UNSPECIFIED [facility] 2018-05-30 00:23 DIARRHEA, UNSPECIFIED [facility] 2018-05-30 00:23 OTHER BUTTER WRAPPER (CURRENT) DRUG [facility] THERAPY 2018-05-30 11:30 ABNORMAL RESULTS OF LIVER FUNCTION [facility] STUDIES 2018-06-07 18:34 ANEMIA, UNSPECIFIED [facility] 2018-06-08 08:45 ANEMIA, UNSPECIFIED [facility] 2018-11-25 13:22 UNILATERAL PRIMARY OSTEOARTHRITIS, [facility] RIGHT HIP 2019-02-07 08:00 EFFUSION, LEFT KNEE [facility] 2019-10-22 11:34 COUGH [facility] 2020-02-14 14:52 OVERWEIGHT [facility] 2020-02-14 14:52 OTHER SLEEP DISORDERS [facility] 2020-02-14 14:52 APNEA, NOT ELSEWHERE CLASSIFIED [facility] 2020-02-14 14:52 SNORING [facility] 2020-02-14 14:52 BODY MASS INDEX (BMI) 28.0-28.9, [facility] ADULT 2020-03-09 19:30 OVERWEIGHT [facility] 2020-03-09 19:30 OBSTRUCTIVE SLEEP APNEA (ADULT) [facility] (PEDIATRIC) 2020-03-09 19:30 BODY MASS INDEX (BMI) 28.0-28.9, [facility] ADULT 2020-03-12 08:00 CONTACT W AND EXPOSURE TO OTH [facility] VIRAL COMMUNICABLE DISEASES 2020-03-17 08:38 ENCNTR FOR OBS FOR OTH SUSPECTED [facility] DISEASES AND COND RULED OUT 2020-03-26 09:10 OBSTRUCTIVE SLEEP APNEA (ADULT) [facility] (PEDIATRIC) 2020-04-26 19:40 ELEVATED WHITE BLOOD CELL COUNT, [facility] UNSPECIFIED 2020-04-26 19:40 HYPO-OSMOLALITY AND HYPONATREMIA [facility] 2020-04-26 19:40 NICOTINE DEPENDENCE, OTHER TOBACCO [facility] PRODUCT, UNCOMPLICATED 2020-04-26 19:40 UNDERDOSING OF CALCIUM-CHANNEL [facility] BLOCKERS, INITIAL ENCOUNTER 2020-04-26 19:40 HEMANGIOMA OF OTHER SITES [facility] 2020-04-26 19:40 ANEMIA, UNSPECIFIED [facility] 2020-04-26 19:40 HYPOKALEMIA [facility] 2020-04-26 19:40 ALCOHOL ABUSE, UNCOMPLICATED [facility] 2020-04-26 19:40 POLYNEUROPATHY, UNSPECIFIED [facility] 2020-04-26 19:40 ESSENTIAL (PRIMARY) HYPERTENSION [facility] 2020-04-26 19:40 PAROXYSMAL ATRIAL FIBRILLATION [facility] 2020-04-26 19:40 ACUTE PANCREATITIS WITHOUT [facility] NECROSIS OR INFECTION, UNSP 2020-04-26 19:40 RHEUMATOID ARTHRITIS, UNSPECIFIED [facility] 2020-04-26 19:40 [facility] (CURRENT) USE OF [facility] SYSTEMIC STEROIDS 2020-04-26 19:40 OTHER BUTTER WRAPPER (CURRENT) DRUG [facility] THERAPY 2020-04-26 19:40 PATIENT'S INTENTL UNDRDOSE OF MEDS [facility] REGIMEN FOR OTH REASON 2020-05-07 11:44 ANEMIA, UNSPECIFIED [facility] 2020-05-07 11:44 RHEUMATOID ARTHRITIS, UNSPECIFIED [facility] 2020-05-07 11:44 PRIMARY OSTEOARTHRITIS, LEFT [facility] SHOULDER 2020-06-18 09:05 ENCOUNTER FOR OTHER ORTHOPEDIC [facility] AFTERCARE 2020-06-18 09:05 OTHER SPECIFIED POSTPROCEDURAL [facility] STATES 2020-08-13 16:01 ANEMIA, UNSPECIFIED [facility] Allergies date description facility NO KNOWN ALLERGIES [facility] SULFA (SULFONAMIDE ANTIBIOTICS) [facility] LISINOPRIL [facility] NO KNOWN ENVIRONMENTAL ALLERGIES [facility] PENICILLINS [facility] CODEINE [facility] HYDROCODONE [facility] OXYCODONE [facility] IBUPROFEN [facility] TETANUS TOXOID, ADSORBED [facility] FLECAINIDE [facility] V[facility]COMYCIN [facility] IODINE [facility] amoxicillin [facility] CEPHALEXIN [facility] OXYCODONE [facility] PENICILLIN [facility] Results test status date ordered by attending specimen sherri e null F 2020-08-13 16:11:00 OTTB.20 [facility] 202 08-02-11 16:11:00 null F 2020-08-13 16:11:00 OTTB.20 [facility] 202 08-02-11 16:11:00 null F 2020-08-13 16:11:00 OTTB.20 [facility] 202 08-02-11 16:11:00 null F 2020-08-13 16:11:00 OTTB.20 [facility] 202 08-02-11 16:11:00 null F 2020-08-13 16:11:00 OTTB.20 [facility] 202 08-02-11 16:11:00 null F 2020-08-13 16:11:00 OTTB.20 [facility] 202 08-02-11 16:11:00 null F 2020-08-13 16:11:00 OTTB.20 [facility] 202 08-02-11 16:11:00 null F 2020-08-13 16:11:00 OTTB.20 [facility] 202 08-02-11 16:11:00 null F 2020-08-13 16:11:00 OTTB.20 [facility] 202 08-02-11 16:11:00 null F 2020-08-13 16:11:00 OTTB.20 [facility] 202 08-02-11 16:11:00 null F 2020-08-13 16:11:00 OTTB.20 [facility] 202 08-02-11 16:11:00 null F 2020-08-13 16:11:00 OTTB.20 [facility] 202 08-02-11 16:11:00 null F 2020-08-13 16:11:00 OTTB.20 [facility] 202 08-02-11 16:11:00 null F 2020-08-13 16:11:00 OTTB.20 [facility] 202 08-02-11 16:11:00 null F 2020-08-13 16:11:00 OTTB.20 [facility] 202 08-02-11 16:11:00 null F 2020-08-13 16:11:00 OTTB.20 [facility] 202 08-02-11 16:11:00 null F 2020-08-13 16:11:00 OTTB.20 [facility] 202 08-02-11 16:11:00 facility observation status value reference units lab abnor mal line range code notes [facility] F 0.0 0.0-0.1 10 [facility] 3/uL [facility] F 0.0 0.0-0.7 10 [facility] 3/uL [facility] F 28.0 42.0-52.0 % [facility] F 8.8 14.0-18.0 g/dL [facility] F 2.2 1.5-3.5 10 [facility] 3/uL [facility] F 22.3 27.0-31.0 pg L [facility] F 31.4 32.0-36.0 g/dL [facility] F 71.1 80.0-94.0 fL [facility] F 0.8 0.0-1.0 10 [facility] 3/uL [facility] F 9.0 7.4-11.4 fL [facility] F 8.0 1.5-6.6 10 [facility] 3/uL [facility] F 0.0 unknown /[facility] F 0.00 unknown [facility] [phone] 10 [address] [facility] 3[facility] F 3.94 4.70-6.10 10 L [facility] 6/uL [facility] F 19.1 12.0-15.0 % [facility] F 11.2 4.8-10.8 x10 H [facility] 3/ C ALL RESULTS TO RAIN@ [phone] OR TO LUIS SEVILLA@ [phone]. Social History date description facility [id number]
== END 2020-08-13 16:02 | disposition home or self-care (01) ==
LOC: LAB.S 16:01
PROVIDERS: ATTEND Registered Nurse
DX: D64.9 Anemia, unspecified (principal)
CPT/HCPCS: 36415; 85025

== ENCOUNTER 2020-09-25 15:35 | Outpatient (CLI) | payer MEDICARE, OTHER ==
[2020-09-25 20:12] LABS: BASOPHILS % (AUTO) 0.4 %; EOSINOPHILS % (AUTO) 0.1 %; HGB - HEMOGLOBIN 9.9 g/dL (14.0-18.0); LYMPHOCYTES # (AUTO) 2.2 10^3/uL (1.5-3.5); LYMPHOCYTES % (AUTO) 23.5 %; MEAN CORPUSCULAR HEMOGLOBIN 21.5 pg (27.0-31.0); MEAN CORPUSCULAR HGB CONC 30.6 g/dL (32.0-36.0); MEAN CORPUSCULAR VOLUME 70.4 fL (80.0-94.0); MEAN PLATELET VOLUME 9.8 fL (7.4-11.4); MONOCYTES # (AUTO) 0.6 10^3/uL (0.0-1.0); MONOCYTES % (AUTO) 6.4 %; NEUTROPHILS # (AUTO) 6.5 10^3/uL (1.5-6.6); NEUTROPHILS % (AUTO) 68.6 %; PLT - PLATELET COUNT 549 10^3/uL (130-450); RED CELL DISTRIBUTION WIDTH 17.1 % (12.0-15.0); WHITE BLOOD COUNT 9.4 x10^3/uL (4.8-10.8)
[2020-09-25 20:17] LABS: PT - PROTHROMBIN TIME 11.4 secs (9.9-12.6)
[2020-09-25 20:24] LABS: PARTIAL THROMBOPLASTIN TIME 27.1 secs (24.9-33.3)
[2020-09-25 20:34] LABS: ALBUMIN 2.9 g/dL (3.2-5.5); ALBUMIN/GLOBULIN RATIO 0.6 (1.0-2.2); BILIRUBIN,TOTAL 0.3 mg/dL (0.2-1.0); CALCIUM 9.1 mg/dL (8.5-10.3); CREATININE 1.1 mg/dL (0.6-1.2); TOTAL PROTEIN 7.5 g/dL (6.7-8.2)
== END 2020-09-25 15:36 | disposition home or self-care (01) ==
LOC: LAB.S 15:35
PROVIDERS: ATTEND Nurse Practitioner Family
DX: Z01.812 Encounter for preprocedural laboratory examination (principal); D64.9 Anemia, unspecified
CPT/HCPCS: 36415; 80053; 82728; 82977; 83540; 84466; 85025; 85610; 85651; 85730; 86140

== ENCOUNTER 2020-10-12 14:01 | Emergency (ER) | payer MEDICARE ==
--- NOTE | 2020-10-12 14:03 | ED Physician Documentation ---
PD HPI WOUND RECHECK - Stated complaint Stated Complaint: CAST - Histroy obtained from History obtained from: Patient - History of Present Illness Location: Left Lower Extremity Timing - onset: Today, Yesterday Associated symptoms: Other (he had a new cast placed by Ortho on [facility] yesterday and states it is rubbing anterior upper contreras at top of the cast. This is the third cast, I believe he said. Came here to see if cast can be modified instead of having to go to [place].). No: Fever, Redness, Swelling, Drainage Similar symptoms before: Diagnosis (prior ankle fracture with plating and has had subsequent re-casting due to prolonged non-healing.) Recently seen: Clinic (yesterday) Review of Systems Constitutional: denies: Fever, Chills Nose: denies: Rhinorrhea / runny nose, Congestion Throat: denies: Sore throat Respiratory: denies: Cough Skin: denies: Abrasion (s), Laceration (s) Neurologic: denies: Focal weakness, Numbness PD PAST MEDICAL HISTORY - Past Medical History Cardiovascular: Hypertension, Atrial fibrillation Respiratory: None Neuro: Peripheral neuropathy Endocrine/Autoimmune: None GI: None : None HEENT: None Psych: None Musculoskeletal: Rheumatoid arthritis Derm: None - Past Surgical History Past Surgical History: Yes General: Hiatal hernia repair, Other Ortho: Other (Left foot/ankle surgery due to flatfoot) - Present Medications Home Medications: Ambulatory Orders Medication Instructions Recorded Confirmed Aspirin 81 mg PO DAILY 04/27/20 10/12/20 Celecoxib [Celebrex] 200 mg PO BIDWM 04/27/20 10/12/20 Lisinopril [Zestril] 40 mg PO DAILY 04/27/20 10/12/20 predniSONE [Prednisone] 10 mg PO DAILY 04/27/20 10/12/20 diltiaZEM CD [Cardizem Cd] 120 mg PO DAILY #30 capsule 05/01/20 10/12/20 diltiaZEM CD [Cardizem Cd] 180 mg PO DAILY #30 capsule 05/01/20 10/12/20 - Allergies Allergies/Adverse Reactions: Allergies Allergy/AdvReac Type Severity Reaction Status Date / Time amoxicillin Allergy Respiratory Verified 10/12/20 14:06 - Social History Does the pt smoke?: Yes Smoking Status: Current every day smoker Does the pt drink ETOH?: Yes Does the pt have substance abuse?: No - Immunizations Immunizations are current?: Yes - POLST Patient has POLST: No POLST Status: Full Code PD ED PE NORMAL - Vitals Vital signs reviewed: Yes - General General: Alert and oriented X 3, No acute distress, Well developed/nourished - Derm Derm: Normal color, Warm and dry - Extremities Extremities: Other (left foot/ankle/lower leg with cast in place. Normal color and sensation in toe ends that are visible. He is able to wiggle toe ends. The upper anterior part of the cast is close to skin of the contreras, but is padded well. Skin with slight redness but no breakdown.) Results - Vitals Vitals: Vital Signs - 24 hr 10/12/20 14:02 Temperature 36.1 C L Heart Rate 76 Respiratory 18 Rate Blood Pressure 126/76 O2 Saturation 100 Oxygen O2 Source Room air PD MEDICAL DECISION MAKING - ED course Complexity details: considered differential (seems like just slight cast rubbing on upper anterior aspect of contreras with movement. He says rest of cast feels comfortable. I used cast saw to cut small crescent shape in upper anterior part of cast. He says it feels comfortable and not rubbing now. ), d/w patient Departure - Departure Disposition: 01 Home, Self Care Clinical Impression: Cast discomfort Condition: Stable Record reviewed to determine appropriate education?: Yes Follow-Up: Key Bronson ARNP [Primary Care Provider] - Comments: Follow-up with your orthopedist as planned. Otherwise cast care as you had been previously directed. You could apply a some bandaging or dressing on the contreras if there is still some irritation. Discharge Date/Time: 10/12/20 14:29
[2020-10-12 14:06] VITALS: BP 126/76
== END 2020-10-12 14:29 | disposition home or self-care (01) ==
LOC: ED 14:01
DX: S82.892G Other fracture of left lower leg, subsequent encounter for closed fracture with delayed healing (principal); X58.XXXD Exposure to other specified factors, subsequent encounter; Z46.89 Encounter for fitting and adjustment of other specified devices; F17.200 Nicotine dependence, unspecified, uncomplicated
CPT/HCPCS: 99281; 99282

== ENCOUNTER 2021-02-01 08:20 | Outpatient (CLI) | payer MEDICARE ==
--- NOTE | 2021-02-01 13:05 | Ultrasound Report ---
PROCEDURE: Abdomen Complete INDICATIONS: ANEMIA/ABN WEIGHT LOSS TECHNIQUE: Real-time scanning was performed of the abdominal and retroperitoneal organs, with image documentatio n. COMPARISON: None. FINDINGS: Liver: Liver is mildly echogenic. However, there is no fatty change on a CT scan dated 04/29/2020. No focal liver masses. Small right lobe liver cysts. Gallbladder: Unremarkable. No stones or wall thickening or pain on examination. Biliary ducts: Intrahepatic bile ducts are non-dilated. Extrahepatic bile duct caliber measures 4 m m. Normal is 6-7 mm or less in diameter, or 10 mm or less post-cholecystectomy. Pancreas: Visualized portions of the pancreas are sonographically normal. Spleen: Spleen is normal in size and homogeneous in echotexture. Kidneys: Kidneys are normal in size and echotexture. Right kidney measures 10.9 cm long; left kidne y measures 11.1 cm long. No hydronephrosis or nephrolithiasis. No solid masses. Aorta: Visualized aorta is normal in caliber at less than 3 cm. Iliacs: Proximal common iliac arteries are normal in caliber at less than 2.5 cm. IVC: Intrahepatic inferior vena cava is patent. Miscellaneous: No free abdominal fluid. Inferior to the spleen and medial to the left kidney is a s olid mass measuring 7.1 x 6.0 x 5.3 cm. That has vascularity. It was not present on previous CT. IMPRESSION: 1. There is a 7.1 x 6.0 x 5.3 cm mass inferior to the spleen and medial to the left kidney which was not present on the previous CT. Recommend CT of the abdomen and pelvis with contrast for further eval uation. 2. Mildly echogenic liver. Previous CT did not demonstrate any fatty change. Reviewed by: Adilson Mendoza MD on 02/01/2021 12:04 PM CHARLETTE Approved by: Adilson Mendoza MD on 02/01/2021 12:04 PM CHARLETTE Station ID: [id number]
== END 2021-02-01 08:21 | disposition home or self-care (01) ==
LOC: DI 08:20
PROVIDERS: ATTEND Internal Medicine Hematology & Oncology
DX: R19.09 Other intra-abdominal and pelvic swelling, mass and lump (principal)

== ENCOUNTER 2021-02-12 11:25 | Outpatient (CLI) | payer OTHER, MEDICARE | END 2021-02-12 11:26 | disposition critical access hospital (66) | LOC: EMS 11:25 | DX: R10.9 Unspecified abdominal pain (principal) | CPT/HCPCS: A0425; A0427 ==

== ENCOUNTER 2021-02-12 12:02 | Emergency (ER) | payer OTHER, MEDICARE ==
--- NOTE | 2021-02-12 12:21 | ED Physician Documentation ---
PD HPI ABD PAIN - Stated complaint Stated Complaint: UMBLICIAL PX - Chief complaint Chief Complaint: Abd Pain - History obtained from History obtained from: Patient - History of Present Illness Timing - onset: How many hours ago (1), Today Timing - duration: Hours (1) Timing - details: Abrupt onset (onset as he was starting to have a BM.) Quality: Sharp, Pain Location: Periumbilical Radiation: Lower back Improved by: Laying still. No: BM Worsened by: Moving. No: Breathing Associated symptoms: No: Fever, Nausea, Vomiting, Diarrhea Similar symptoms before: Has not had sx before Recently seen: Clinic (Seen in the clinic for upper abdominal pain recently. Consideration of gastritis versus possible gallbladder problems. Upper abdominal ultrasound done on 02/01/2021.) Review of Systems Constitutional: denies: Fever, Chills Nose: denies: Rhinorrhea / runny nose, Congestion Throat: denies: Sore throat Cardiac: denies: Chest pain / pressure, Palpitations Respiratory: denies: Cough GI: reports: Abdominal Pain. denies: Nausea, Vomiting, Constipation, Diarrhea Musculoskeletal: denies: Extremity swelling Neurologic: denies: Syncope PD PAST MEDICAL HISTORY - Past Medical History Cardiovascular: Hypertension, Atrial fibrillation Respiratory: None Neuro: Peripheral neuropathy Endocrine/Autoimmune: None GI: None : None HEENT: None Psych: None Musculoskeletal: Rheumatoid arthritis Derm: None Other Past Medical History: anemia, iron deficiency - Past Surgical History Past Surgical History: Yes General: Hiatal hernia repair, Other Ortho: Other - Present Medications Home Medications: Ambulatory Orders Medication Instructions Recorded Confirmed Aspirin 81 mg PO DAILY 04/27/20 01/10/21 Celecoxib [Celebrex] 200 mg PO BIDWM 04/27/20 01/10/21 Lisinopril [Zestril] 40 mg PO DAILY 04/27/20 01/10/21 predniSONE [Prednisone] 10 mg PO DAILY 04/27/20 01/10/21 diltiaZEM CD [Cardizem Cd] 120 mg PO DAILY #30 capsule 05/01/20 01/10/21 diltiaZEM CD [Cardizem Cd] 180 mg PO DAILY #30 capsule 05/01/20 01/10/21 - Allergies Allergies/Adverse Reactions: Allergies Allergy/AdvReac Type Severity Reaction Status Date / Time amoxicillin Allergy Respiratory Verified 02/12/21 12:15 - Social History Does the pt smoke?: Yes Smoking Status: Former smoker Does the pt drink ETOH?: Yes Does the pt have substance abuse?: No - Immunizations Immunizations are current?: Yes - POLST Patient has POLST: No POLST Status: Full Code PD ED PE NORMAL - Vitals Vital signs reviewed: Yes - General General: Alert and oriented X 3, Well developed/nourished, Other (appears in pain, though decreasing per patient. ) - HEENT HEENT: Pharynx benign - Neck Neck: Supple, no meningeal sign, No adenopathy - Cardiac Cardiac: RRR, No murmur - Respiratory Respiratory: Clear bilaterally - Abdomen Abdomen: Soft, Non distended, No organomegaly, Other (There is tenderness in the mid abdomen without any notable masses. We will lesions are felt. No hernia is noted. Bowel sounds are diminished. No peritoneal signs of percussion or rebound.). No: Normal bowel sounds (diminished) - Male Male : Deferred - Rectal Rectal: Deferred - Back Back: No CVA TTP - Derm Derm: Normal color, Warm and dry - Extremities Extremities: No tenderness to palpate, Normal ROM s pain, No calf tenderness / cord - Neuro Neuro: Alert and oriented X 3, No motor deficit, Normal speech Results - Vitals Vitals: Vital Signs - 24 hr 02/12/21 02/12/21 02/12/21 12:12 14:53 15:08 Temperature 36.6 C 36.6 C Heart Rate 81 78 75 Respiratory 22 18 14 Rate Blood Pressure 170/140 H 137/87 H 117/99 H O2 Saturation 98 100 100 02/12/21 17:12 Temperature Heart Rate 78 Respiratory 14 Rate Blood Pressure 133/83 H O2 Saturation 100 Oxygen O2 Source Room air - Labs Labs: Laboratory Tests 02/12/21 02/12/21 02/12/21 12:48 12:48 13:26 WBC 9.6 RBC 2.91 L Hgb 7.1 L Hct 22.5 L MCV 77.3 L MCH 24.4 L MCHC 31.6 L RDW 15.9 H Plt Count 314 MPV 9.3 Neut # (Auto) 7.3 H Lymph # (Auto) 1.4 L Beaver # (Auto) 0.7 Eos # (Auto) 0.0 Baso # (Auto) 0.1 Absolute Nucleated RBC 0.00 Nucleated RBC % 0.0 PT INR APTT Sodium 132 L Potassium 3.8 Chloride 98 L Carbon Dioxide 20 L Anion Gap 14.0 H BUN 15 Creatinine 0.8 Estimated GFR (MDRD) 120 Glucose 119 H Calcium 8.8 Total Bilirubin 0.8 AST 14 ALT 12 Alkaline Phosphatase 81 Total Protein 6.4 L Albumin 3.4 Globulin 3.0 Albumin/Globulin Ratio 1.1 Lipase 48 Urine Color YELLOW Urine Clarity CLEAR Urine pH 6.0 Ur Specific Maupin <=1.005 Urine Protein NEGATIVE Urine Glucose (UA) NEGATIVE Urine Ketones TRACE Urine Occult Blood NEGATIVE Urine Nitrite NEGATIVE Urine Bilirubin NEGATIVE Urine Urobilinogen 0.2 (NORMAL) Ur Leukocyte Esterase NEGATIVE Ur Microscopic Review NOT INDICATED Urine Culture Comments NOT INDICATED Nasal Adenovirus (PCR) Nasal B. parapertussis DNA (PCR) Nasal Coronavir 229E PCR Nasal Coronavir HKU1 PCR Nasal Coronavir NL63 PCR Nasal Coronavir OC43 PCR Nasal Enterovir/Rhinovir PCR Nasal Influenza B PCR Nasal Influenza A PCR Nasal Parainfluen 1 PCR Nasal Parainfluen 2 PCR Nasal Parainfluen 3 PCR Nasal Parainfluen 4 PCR Nasal RSV (PCR) Nasal B.pertussis DNA PCR Nasal C.pneumoniae (PCR) Varun Human Metapneumo PCR Nasal M.pneumoniae (PCR) Nasal SARS-CoV-2 (PCR) 02/12/21 02/12/21 02/12/21 15:05 15:15 16:35 WBC RBC Hgb 6.9 L* Hct 21.2 L MCV MCH MCHC RDW Plt Count MPV Neut # (Auto) Lymph # (Auto) Beaver # (Auto) Eos # (Auto) Baso # (Auto) Absolute Nucleated RBC Nucleated RBC % PT 12.2 INR 1.1 APTT 25.9 Sodium Potassium Chloride Carbon Dioxide Anion Gap BUN Creatinine Estimated GFR (MDRD) Glucose Calcium Total Bilirubin AST ALT Alkaline Phosphatase Total Protein Albumin Globulin Albumin/Globulin Ratio Lipase Urine Color Urine Clarity Urine pH Ur Specific Maupin Urine Protein Urine Glucose (UA) Urine Ketones Urine Occult Blood Urine Nitrite Urine Bilirubin Urine Urobilinogen Ur Leukocyte Esterase Ur Microscopic Review Urine Culture Comments Nasal Adenovirus (PCR) NOT DETECTED Nasal B. parapertussis DNA (PCR) NOT DETECTED Nasal Coronavir 229E PCR NOT DETECTED Nasal Coronavir HKU1 PCR NOT DETECTED Nasal Coronavir NL63 PCR NOT DETECTED Nasal Coronavir OC43 PCR NOT DETECTED Nasal Enterovir/Rhinovir PCR NOT DETECTED Nasal Influenza B PCR NOT DETECTED Nasal Influenza A PCR NOT DETECTED Nasal Parainfluen 1 PCR NOT DETECTED Nasal Parainfluen 2 PCR NOT DETECTED Nasal Parainfluen 3 PCR NOT DETECTED Nasal Parainfluen 4 PCR NOT DETECTED Nasal RSV (PCR) NOT DETECTED Nasal B.pertussis DNA PCR NOT DETECTED Nasal C.pneumoniae (PCR) NOT DETECTED Varun Human Metapneumo PCR NOT DETECTED Nasal M.pneumoniae (PCR) NOT DETECTED Nasal SARS-CoV-2 (PCR) NOT DETECTED - Rads (name of study) abd/pelvic CT Radiology: Prelim report reviewed, Discussed with rads (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 acute bleeding) into the central portion of the thrombus.), See rad report PD MEDICAL DECISION MAKING - ED course Complexity details: reviewed results (Discussion with the radiologist showed a splenic artery pseudoaneurysm with bleeding into the center of it. No free fluid. This is increased in size from recent ultrasound just 11 days ago.), re- evaluated patient (His blood pressure remained stable. It was decreased appropriately with enalapril IV down to 138 systolic. Heart rate remained stable. Repeat hemoglobin showed it to be slightly decreased now to 6.9. This may be somewhat dilutional though likely accounts for some mild further bleeding. mild pain), considered differential (consider umbilical hernia, bowel obstruction, appendicitis (though quick onset), kidney stone, abd aneurysm, other processes.), d/w patient, d/w PMD (Initially talked with [facility] coordinating physician who stated they had no [place] vascular surgery on-call per se so for us to find our own transfer direction. He gave approval for us to find appropriate transfer.), d/w retail wireless sales consultant (Radiologist), other (I talked with vascular surgery from [facility] who had taken a little while to call back as they were in a case and then getting images to review. They did review the images and wanted the patient there as promptly as we could suggesting air transport for going directly to the vascular lab.) - Critical Care Time(min): 35 Time Includes: Direct patient care, Reassess patient, Document care, Coordinate care Data interpretation: Labs Departure - Departure Disposition: 02 Transfer Acute Care Hosp Clinical Impression: Acute abdominal pain, Splenic artery aneurysm Condition: Stable Discharge Date/Time: 02/12/21 17:12
[2021-02-12] MEDS ORDERED: MAG HYDROX/AL HYDROX/SIMETH 30 ML UDC PO STA (12:36)
[2021-02-12 12:54] LABS: BASOPHILS # (AUTO) 0.1 10^3/uL (0.0-0.1); BASOPHILS % (AUTO) 0.5 %; EOSINOPHILS % (AUTO) 0.3 %; HCT - HEMATOCRIT 22.5 % (42.0-52.0); HGB - HEMOGLOBIN 7.1 g/dL (14.0-18.0); LYMPHOCYTES # (AUTO) 1.4 10^3/uL (1.5-3.5); LYMPHOCYTES % (AUTO) 14.7 %; MEAN CORPUSCULAR HEMOGLOBIN 24.4 pg (27.0-31.0); MEAN CORPUSCULAR HGB CONC 31.6 g/dL (32.0-36.0); MEAN CORPUSCULAR VOLUME 77.3 fL (80.0-94.0); MEAN PLATELET VOLUME 9.3 fL (7.4-11.4); MONOCYTES # (AUTO) 0.7 10^3/uL (0.0-1.0); MONOCYTES % (AUTO) 7.3 %; NEUTROPHILS # (AUTO) 7.3 10^3/uL (1.5-6.6); NEUTROPHILS % (AUTO) 76.2 %; PLT - PLATELET COUNT 314 10^3/uL (130-450); RED BLOOD COUNT 2.91 10^6/uL (4.70-6.10); RED CELL DISTRIBUTION WIDTH 15.9 % (12.0-15.0); WHITE BLOOD COUNT 9.6 x10^3/uL (4.8-10.8)
[2021-02-12 13:07] LABS: ALBUMIN 3.4 g/dL (3.2-5.5); ALBUMIN/GLOBULIN RATIO 1.1 (1.0-2.2); BILIRUBIN,TOTAL 0.8 mg/dL (0.2-1.0); CALCIUM 8.8 mg/dL (8.5-10.3); CREATININE 0.8 mg/dL (0.6-1.2); POTASSIUM 3.8 mmol/L (3.5-5.0); TOTAL PROTEIN 6.4 g/dL (6.7-8.2)
[2021-02-12] MEDS ORDERED: IOVERSOL 320 100 ML VIAL IVP ONE ×2 (13:13→15:04)
[2021-02-12 13:44] LABS: BILIRUBIN,URINE NEGATIVE (NEGATIVE); GLUCOSE, URINE (UA) NEGATIVE (NEGATIVE); KETONES,URINE (UA) TRACE mg/dL (NEGATIVE); LEUKOCYTE ESTERASE, URINE NEGATIVE (NEGATIVE); NITRITE,URINE NEGATIVE (NEGATIVE); OCCULT BLOOD,URINE NEGATIVE (NEGATIVE); PROTEIN,URINE NEGATIVE (NEGATIVE); UROBILINOGEN,URINE 0.2 (NORMAL) E.U./dL (NORMAL)
[2021-02-12 13:45] LABS: CLARITY,URINE CLEAR (CLEAR)
[2021-02-12] MEDS ORDERED: SODIUM CHLORIDE 0.9% 1,000 ML IV STA (14:54)
[2021-02-12] MEDS ORDERED: ENALAPRILAT 1.25 MG/ML VIAL IVP STA (14:55)
--- NOTE | 2021-02-12 14:59 | CT Report ---
PROCEDURE: Abdomen/Pelvis W INDICATIONS: mid abd pain, abrupt onset today CONTRAST: IV CONTRAST: Optiray 320 ml: 100 PO CONTRAST: *NO PO CONTRAST TECHNIQUE: After the administration of intravenous contrast, 5 mm thick sections acquired from the diaphragms to the symphysis. 5 mm thick coronal and sagittal reformats were acquired. For radiation dose reducti on, the following was used: automated exposure control, adjustment of mA and/or kV according to vida ent size. COMPARISON: Abdominal ultrasound 02/01/2021. CT abdomen and pelvis without contrast 04/29/2020. CT abdo men pelvis with contrast 04/26/2020. FINDINGS: Image quality: Excellent. ABDOMEN: Lung bases: Lung bases are clear. Heart size is normal. Solid organs: Liver and spleen are normal in size and enhancement. Small cyst in the right lobe live r, unchanged. Gallbladder is not distended. No calcified gallstones. Biliary system is non dilated. Pancreas is atrophic. New splenic artery aneurysm or pseudoaneurysm as described below. Small low-den sity collections superior to the pancreas measuring 2.6 x 2.1 cm and 2 x 1.6 cm, new. On the prior C T from April 2020 there was stranding near the tail the pancreas. No adrenal nodules. Kidneys demonstrate normal size and enhancement, without hydronephrosis. Peritoneum and bowel: Thickening adjacent to the stomach. Stomach is not distended. No small bowel ob struction. Diverticulosis. No free fluid or air. Nodes and vessels: No retroperitoneal or mesenteric adenopathy by size criteria. Splenic artery aneurysm or pseudoaneurysm with large heterogeneous thrombus in the aneurysm sac. Tota l size measures 10.2 x 7.7 x 7.2 cm, (10/23 and 01/28). The enhancing component of the aneurysm measure s approximately 4.8 x 3.4 cm, (10/19). This measures up approximately 60 Hounsfield units. There is ma ss effect on the left adrenal gland and stomach. Miscellaneous: No ventral hernias. PELVIS: Genitourinary: Bladder wall thickness is normal. Hydrocele is suspected. Miscellaneous: No inguinal hernias or adenopathy. Bones: No suspicious bony lesions. L2 compression fracture, new in the interval compared to 2019. Severe right hip DJD. IMPRESSION: 1. 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 Alternatively, this could represent pancreatic fluid collection rather elizabeth n thrombus but generally would have a lower density. Unlikely pancreatic neoplasm. 2. Small low-density collection superior to the pancreas adjacent to the stomach. These likely repres ent small peripancreatic fluid collections from pancreatitis. 3. Pancreas is atrophic. 4. L2 compression fracture. Severe right hip DJD. Multiphase CT including noncontrast and arterial phases could be helpful for further characterization . Recommend interventional radiology consultation for possible embolization. Results were communicated to Dr. Reji Lion at 02/12/2021 2:47 PM PDT. Reviewed by: Zachariah Carney MD on 02/12/2021 2:58 PM PDT Approved by: Zachariah Carney MD on 02/12/2021 2:58 PM PDT Station ID: [id number]
[2021-02-12] MEDS ORDERED: HYDROmorphone 0.5 MG/0.5 ML SYRINGE IVP STA (15:37)
[2021-02-12 15:45] LABS: INR 1.1 (0.8-1.2); PT - PROTHROMBIN TIME 12.2 secs (9.9-12.6)
[2021-02-12 15:52] LABS: PARTIAL THROMBOPLASTIN TIME 25.9 secs (24.9-33.3)
[2021-02-12 16:11] LABS: B. PARAPERTUSSIS- RESP PCR PAN NOT DETECTED; B. PERTUSSIS- RESP PCR PANEL NOT DETECTED; C. PNEUMONIAE- RESP PCR PANEL NOT DETECTED; CORONAVIRUS 229E-RESP PCR NOT DETECTED; CORONAVIRUS HKU1-RESP PCR NOT DETECTED; CORONAVIRUS NL63-RESP PCR NOT DETECTED; CORONAVIRUS OC43-RESP PCR NOT DETECTED; HUMAN METAPNEUMOVIRUS NOT DETECTED; INFLUENZA A- RESP PCR PANEL NOT DETECTED; INFLUENZA B - RESP PCR PANEL NOT DETECTED; M. PNEUMONIAE- RESP PCR PANEL NOT DETECTED; PARAINFLUENZA VIRUS 1 NOT DETECTED; PARAINFLUENZA VIRUS 2 NOT DETECTED; PARAINFLUENZA VIRUS 3 NOT DETECTED; PARAINFLUENZA VIRUS 4 NOT DETECTED; RHINOVIRUS/ENTEROVIRUS NOT DETECTED; RSV- RESP PCR PANEL NOT DETECTED; SARS-CoV-2 -RESP PCR PANEL NOT DETECTED
[2021-02-12 16:41] LABS: HCT - HEMATOCRIT 21.2 % (42.0-52.0)
[2021-02-12 16:43] LABS: HGB - HEMOGLOBIN 6.9 g/dL (14.0-18.0)
[2021-02-12 17:12] VITALS: BP 133/83
== END 2021-02-12 17:12 | disposition short-term general hospital (02) ==
LOC: EDUNIT# → ED 12:02
DX: I72.8 Aneurysm of other specified arteries (principal); I74.8 Embolism and thrombosis of other arteries; R10.33 Periumbilical pain; K86.89 Other specified diseases of pancreas; I10 Essential (primary) hypertension; Z79.82 Long term (current) use of aspirin; Z20.822 Contact with and (suspected) exposure to COVID-19; Z87.891 Personal history of nicotine dependence
CPT/HCPCS: 0202U; 36415; 74177; 80053; 81003; 83690; 85014; 85018; 85025; 85610; 85730; 96374; 96375; 99285; 99291; A9270; J1170; Q9967; 81001; 87086

== ENCOUNTER 2021-02-19 16:06 | Outpatient (CLI) | payer OTHER, MEDICARE ==
[2021-02-19 19:41] LABS: BASOPHILS # (AUTO) 0.1 10^3/uL (0.0-0.1); BASOPHILS % (AUTO) 0.8 %; EOSINOPHILS # (AUTO) 0.1 10^3/uL (0.0-0.7); EOSINOPHILS % (AUTO) 1.1 %; HCT - HEMATOCRIT 23.6 % (42.0-52.0); HGB - HEMOGLOBIN 7.1 g/dL (14.0-18.0); LYMPHOCYTES # (AUTO) 2.9 10^3/uL (1.5-3.5); MEAN CORPUSCULAR HEMOGLOBIN 23.7 pg (27.0-31.0); MEAN CORPUSCULAR HGB CONC 30.1 g/dL (32.0-36.0); MEAN CORPUSCULAR VOLUME 78.7 fL (80.0-94.0); MEAN PLATELET VOLUME 10.1 fL (7.4-11.4); MONOCYTES # (AUTO) 1.3 10^3/uL (0.0-1.0); MONOCYTES % (AUTO) 10.2 %; NEUTROPHILS # (AUTO) 7.9 10^3/uL (1.5-6.6); NEUTROPHILS % (AUTO) 62.8 %; PLT - PLATELET COUNT 381 10^3/uL (130-450); RED CELL DISTRIBUTION WIDTH 15.7 % (12.0-15.0); WHITE BLOOD COUNT 12.6 x10^3/uL (4.8-10.8)
[2021-02-19 20:06] LABS: ALBUMIN 3.2 g/dL (3.2-5.5); ALKALINE PHOSPHATASE 98 IU/L (42-121); ALT ALANINE AMINOTRANSFERASE < 10 IU/L (10-60); AST ASPARTATE AMINOTRANSFERASE 12 IU/L (10-42); BILIRUBIN,TOTAL 0.5 mg/dL (0.2-1.0); BUN - BLOOD UREA NITROGEN 16 mg/dL (6-20); CALCIUM 8.7 mg/dL (8.5-10.3); CARBON DIOXIDE - CO2 20 mmol/L (21-32); CHLORIDE 99 mmol/L (101-111); CREATININE 2.1 mg/dL (0.6-1.2); GFR - MDRD 39 (>89); GLUCOSE 129 mg/dL (70-100); POTASSIUM 4.3 mmol/L (3.5-5.0); SODIUM 129 mmol/L (135-145); TOTAL PROTEIN 6.3 g/dL (6.7-8.2)
== END 2021-02-19 16:07 | disposition home or self-care (01) ==
LOC: LAB.S 16:06
PROVIDERS: ATTEND Nurse Practitioner Family
DX: R03.1 Nonspecific low blood-pressure reading (principal)
CPT/HCPCS: 36415; 80053; 85025

== ENCOUNTER 2021-02-21 11:10 | Outpatient (CLI) | payer OTHER, MEDICARE ==
[2021-02-21 15:12] LABS: CALCIUM 8.6 mg/dL (8.5-10.3); CREATININE 1.7 mg/dL (0.6-1.2); POTASSIUM 4.6 mmol/L (3.5-5.0)
== END 2021-02-21 11:11 | disposition home or self-care (01) ==
LOC: LAB.S 11:10
PROVIDERS: ATTEND Nurse Practitioner Family
DX: E87.1 Hypo-osmolality and hyponatremia (principal)
CPT/HCPCS: 36415; 80048

== ENCOUNTER 2021-04-02 09:02 | Outpatient (CLI) | payer MEDICARE ==
[2021-04-02 14:45] LABS: BASOPHILS # (AUTO) 0.1 10^3/uL (0.0-0.1); BASOPHILS % (AUTO) 0.5 %; EOSINOPHILS # (AUTO) 0.1 10^3/uL (0.0-0.7); HCT - HEMATOCRIT 31.6 % (42.0-52.0); HGB - HEMOGLOBIN 9.7 g/dL (14.0-18.0); LYMPHOCYTES # (AUTO) 3.1 10^3/uL (1.5-3.5); LYMPHOCYTES % (AUTO) 30.5 %; MEAN CORPUSCULAR HEMOGLOBIN 24.3 pg (27.0-31.0); MEAN CORPUSCULAR HGB CONC 30.7 g/dL (32.0-36.0); MEAN PLATELET VOLUME 10.3 fL (7.4-11.4); MONOCYTES # (AUTO) 0.7 10^3/uL (0.0-1.0); MONOCYTES % (AUTO) 7.1 %; NEUTROPHILS # (AUTO) 6.2 10^3/uL (1.5-6.6); NEUTROPHILS % (AUTO) 60.5 %; PLT - PLATELET COUNT 361 10^3/uL (130-450); RED CELL DISTRIBUTION WIDTH 17.3 % (12.0-15.0); WHITE BLOOD COUNT 10.2 x10^3/uL (4.8-10.8)
[2021-04-02 15:15] LABS: ALBUMIN 3.6 g/dL (3.2-5.5); ALBUMIN/GLOBULIN RATIO 1.1 (1.0-2.2); BILIRUBIN,TOTAL 0.6 mg/dL (0.2-1.0); CALCIUM 9.1 mg/dL (8.5-10.3); CREATININE 0.9 mg/dL (0.6-1.2); TOTAL PROTEIN 6.8 g/dL (6.7-8.2)
[2021-04-02 15:34] LABS: HCG,QUALITATIVE BLOOD NEGATIVE
[2021-04-02 15:36] LABS: THYROID STIMULATING HORMONE 0.77 uIU/mL (0.34-5.60)
[2021-04-02 15:37] LABS: FREE T4 (FREE THYROXINE) 1.12 ng/dL (0.58-1.64)
[2021-04-02 16:01] LABS: FOLLICLE STIMULATING HORMONE 14.04 mIU/mL
[2021-04-02 16:02] LABS: LUTEINIZING HORMONE 8.18 mIU/mL
[2021-04-03 17:16] LABS: PROLACTIN 7.31 ng/mL
== END 2021-04-02 09:03 | disposition home or self-care (01) ==
LOC: LAB.S 09:02
PROVIDERS: ATTEND Internal Medicine
DX: E29.1 Testicular hypofunction (principal); Z79.52 Long term (current) use of systemic steroids; F11.90 Opioid use, unspecified, uncomplicated; M06.9 Rheumatoid arthritis, unspecified; N50.9 Disorder of male genital organs, unspecified; E87.1 Hypo-osmolality and hyponatremia
CPT/HCPCS: 36415; 80053; 81599; 82626; 83001; 83002; 84146; 84153; 84305; 84403; 84439; 84443; 84703; 85025

== ENCOUNTER 2021-04-05 14:49 | Outpatient (CLI) | payer MEDICARE ==
--- NOTE | 2021-04-05 16:32 | Ultrasound Report ---
PROCEDURE: Testicle INDICATIONS: TESTICULAR ABNORMALITY TECHNIQUE: Real-time scanning was performed of the scrotum and testicles, with image documentation. Color and p ulse Doppler interrogation was performed of both testicles. COMPARISON: None. FINDINGS: Right: Testicle is normal in size at 3.4 x 1.9 x 2.6 cm, and homogenous in echotexture. Epididymis is normal in overall size and morphology, with a 3 mm epididymal cyst incidentally noted. A 4 mm rig ht-sided scrotal juvenal can be seen. There is a moderate right-sided hydrocele, with internal debris. Overlying scrotal skin is normal in thickness. Left: Testicle is normal in size at 3.4 x 1.8 x 2.4 cm, and homogeneous in echotexture. Epididymis is normal in overall size and morphology. Left-sided scrotal pearls are seen that measure less than 4 mm. There is a moderate left-sided hydrocele seen. Mild debris can be seen within the hydrocele. Ove rlying scrotal skin is normal in thickness. Doppler: Color and pulse Doppler demonstrate normal and symmetric arterial flow in both testicles. No varicocele can be seen. IMPRESSION: No significant testicular abnormality can be seen. Bilateral hydroceles are seen, with internal debris, which may be related to spermatoceles. Incidental note is made of bilateral scrotal pearls and a 3 mm right epididymal cyst. Reviewed by: Jose G Wells MD on 04/05/2021 3:31 PM CHARLETTE Approved by: Jose G Wells MD on 04/05/2021 3:31 PM CTANGEL LUIS Station ID: [id number]
== END 2021-04-05 14:50 | disposition home or self-care (01) ==
LOC: DI 14:49
PROVIDERS: ATTEND Internal Medicine
DX: N43.3 Hydrocele, unspecified (principal)

== ENCOUNTER 2021-05-30 08:00 | Outpatient (CLI) | payer MEDICARE | END 2021-05-30 23:59 | disposition home or self-care (01) | LOC: LAB 08:00 | PROVIDERS: ATTEND Physician Assistant Medical | DX: S81.801A Unspecified open wound, right lower leg, initial encounter (principal); L03.115 Cellulitis of right lower limb | CPT/HCPCS: 87070; 87077; 87181; 87205 ==

== ENCOUNTER 2021-07-07 08:34 | Outpatient (CLI) | payer OTHER, MEDICARE ==
[2021-07-07] MEDS ORDERED: IOVERSOL 320 100 ML VIAL IVP ONE ×2 (08:58→11:25)
--- NOTE | 2021-07-07 11:38 | CT Report ---
PROCEDURE: ABDOMEN W/WO INDICATIONS: ABNORMAL GASTROINTESTINAL TRACT liver lesions CONTRAST: IV CONTRAST: Optiray 320 ml: 100 PO CONTRAST: *NO PO CONTRAST TECHNIQUE: Noncontrast 5 mm thick sections acquired from the diaphragms to the symphysis. 5 mm coronal and sagi ttal reformats were then performed. For radiation dose reduction, the following was used: automated exposure control, adjustment of mA and/or kV according to patient size. COMPARISON: CT 02/12/2021, abdominal ultrasound 02/01/2021, MRCP 04/30/2020 FINDINGS: Image quality: Excellent. Lung bases: Lung bases are clear. Heart size is normal. Liver: Normal liver size with a smooth margin. 1.3 cm irregular, nonenhancing hypodensity is present near the liver dome in segment VIII. Precontrast Hounsfield units are those of a simple cyst. A 1.9 cm ovoid lesion in the dorsal aspect of segment III demonstrates venous phase enhancement and no wash out. Its MR characteristics are supportive of a hemangioma. No enhancing lesions in the very early ar terial phase. There are a few subcentimeter hypodensities scattered elsewhere in the liver. No intrah epatic biliary dilatation. Other solid organs: The spleen is normal size. Within the medial head of the pancreas, there is a 1.7 cm oval cystic lesion, and in the ventral head, there is a cystic lesion measuring about 1.3 cm. The re are punctate calcifications in the pancreatic body and proximal tail. There is a small tubular flu id collection extending from the pancreatic tail into the splenic hilum and up towards the left upper quadrant. No adrenal nodules. Normal kidneys and gallbladder. Peritoneum and bowel: Unenhanced bowel loops are normal in caliber and wall thickness. Several dive rticula seen in the descending colon. No free fluid or air. Nodes and vessels: Numerous vascular coils are present along the splenic artery. There is been resol ution of the splenic artery aneurysm. The splenic vein is attenuated near the hilum No retroperitonea l or mesenteric adenopathy by size criteria. Aorta and inferior vena cava are normal in size. Miscellaneous: No ventral hernias. Bones: No suspicious bony lesions. Chronic L2 compression fracture. No significant progression. Dege nerative disc and endplate change at L4-5. IMPRESSION: 1. 1.9 cm left lobe liver lesion present since 2018, best characterized by MRI, and current study whi ch supports diagnosis of hemangioma. 2. Hepatic cysts. 3. Resolution of large splenic artery aneurysm postembolization. 4. Residual peripancreatic and intrapancreatic fluid collections in the head and distal tail, presuma lamonte pseudocyst. Calcifications of chronic pancreatitis are also seen. 5. Chronic L2 compression fracture. Reviewed by: Josie England MD on 07/07/2021 11:36 AM PST Approved by: Josie England MD on 07/07/2021 11:36 AM PST Station ID: [id number]
== END 2021-07-07 08:35 | disposition home or self-care (01) ==
LOC: DI 08:34
PROVIDERS: ATTEND Internal Medicine Gastroenterology
DX: D18.09 Hemangioma of other sites (principal); K76.89 Other specified diseases of liver; K86.1 Other chronic pancreatitis; M48.56XA Collapsed vertebra, not elsewhere classified, lumbar region, initial encounter for fracture
CPT/HCPCS: 74170; Q9967